=== PATIENT | male | born 1945 | race Hispanic/Latino ===

== ENCOUNTER 2018-01-13 11:46 | Emergency (ER) | payer MEDICARE ==
[2018-01-13 12:16] VITALS: BP 137/72
--- NOTE | 2018-01-13 12:58 | Emergency Department Report ---
- General Chief Complaint: Upper Respiratory Infection Stated Complaint: FLU LIKE SYMPTOMS Time Seen by Provider: 01/13/18 12:43 Source: patient, family Mode of arrival: Ambulatory Limitations: No Limitations - History of Present Illness Initial Comments: 72-year-old male with a past medical history of diabetes, hypertension, pacemaker, and depression presents with complaints of cough and cold symptoms 2 weeks. Cough productive of clear sputum. Patient denies fever, chills, night sweats, hemoptysis, shortness of breath, or wheezing. No pain reported - Related Data Previous Rx's Medication Instructions Recorded Last Taken Type Azithromycin [Zithromax Z-BETH] 1 dose PO DAILY 5 Days tab 01/13/18 Unknown Rx Benzonatate [Tessalon Perles] 100 mg PO Q8HR PRN #20 capsule 01/13/18 Unknown Rx Allergies Allergy/AdvReac Type Severity Reaction Status Date / Time No Known Allergies Allergy Unverified 11/19/13 10:42 ED Review of Systems ROS: Stated complaint: FLU LIKE SYMPTOMS Other details as noted in HPI Comment: All other systems reviewed and negative ED Past Medical Hx - Past Medical History Previous Medical History?: Yes Hx Hypertension: Yes (1981) Hx Diabetes: Yes Hx Kidney Stones: Yes Hx Psychiatric Treatment: Yes (depression) Additional medical history: Pacemaker - Surgical History Hx Pacemaker: Yes (03/09/2005) Additional Surgical History: Prostate trim and biopsy - Social History Smoking Status: Never Smoker Substance Use Type: Alcohol - Medications Home Medications: Home Medications Medication Instructions Recorded Confirmed Last Taken Type Azithromycin [Zithromax Z-BETH] 1 dose PO DAILY 5 Days tab 01/13/18 Unknown Rx Benzonatate [Tessalon Perles] 100 mg PO Q8HR PRN #20 capsule 01/13/18 Unknown Rx ED Physical Exam - General Limitations: No Limitations - Other Other exam information: General: No limitations, patient is alert in no acute distress Head exam: Atraumatic, normocephalic Eyes exam: Normal appearance ENT: Moist mucous membrane Neck exam: Normal inspection, full range of motion, no meningismus nontender Respiratory exam: Clear to auscultation bilateral, no wheezes, rales, crackles Cardiovascular: Normal rate and rhythm, normal heart sounds Abdomen: Soft, nondistended, and nontender, with normal bowel sounds, no rebound, or guarding Extremity: Full range of motion normal inspection no deformity, no edema Back: Normal Inspection, full range of motion, no tenderness Neurologic: Alert, oriented x3, cranial nerves intact, no motor or sensory deficit Psychiatric: normal affect, normal mood Skin: Warm, dry, intact ED Course Vital Signs 01/13/18 12:05 Temperature 97.8 F Pulse Rate 50 L Respiratory 16 Rate Blood Pressure 137/72 Blood Pressure 137/72 [Right] O2 Sat by Pulse 95 Oximetry ED Medical Decision Making - Radiology Data Radiology results: image reviewed (cxr pa/lat: pacemaker, naf) - Medical Decision Making No acute findings on x-ray patient likely has a viral syndrome but will be covered for bronchitis/atypical pneumonia with zpack given prolonged symptoms 2 weeks. - Differential Diagnosis bronchitis, pneumonia, viral syndrome Critical Care Time: No Critical care attestation.: If time is entered above; I have spent that time in minutes in the direct care of this critically ill patient, excluding procedure time. ED Disposition Clinical Impression: Acute bronchitis Disposition: - TO HOME OR SELFCARE Is pt being admited?: No Does the pt Need Aspirin: No Condition: Stable Instructions: Acute Bronchitis (ED) Additional Instructions: Take the medications as prescribed. Return if symptoms worsen as indicated by the discharge instructions otherwise follow with your doctor for further treatment. Prescriptions: Azithromycin [Zithromax Z-BETH] 1 dose PO DAILY 5 Days tab Benzonatate [Tessalon Perles] 100 mg PO Q8HR PRN #20 capsule PRN Reason: Cough Referrals: PRIMARY CARE, [Primary Care Provider] - 3-5 Days Time of Disposition: 13:08
--- NOTE | 2018-01-13 13:28 | XRay Report ---
XRAY CHEST TWO VIEWS: 01/13/18 11:46:00 CLINICAL: Cough. COMPARISON: None FINDINGS: The heart is normal size with pacer leads in the heart. Normal pulmonary vessels. The lungs are normally expanded and clear. Aortic tortuosity.The bones and soft tissues are unremarkable. IMPRESSION: No acute cardiopulmonary process.Hypertensive change in the aorta.
== END 2018-01-13 13:23 | disposition home or self-care (01) ==
LOC: ED 11:46
DX: J20.9 Acute bronchitis, unspecified (principal); I10 Essential (primary) hypertension; E11.9 Type 2 diabetes mellitus without complications; F32.9 Major depressive disorder, single episode, unspecified; Z95.0 Presence of cardiac pacemaker; Z87.442 Personal history of urinary calculi
CPT/HCPCS: 71046

== ENCOUNTER 2018-01-29 10:36 | Emergency (ER) | payer MEDICARE ==
[2018-01-29 13:43] LABS: Basophils # (Auto) 0.1 K/mm3 (0.0-0.1); Basophils % (Auto) 1.2 % (0.0-1.8); Eosinophils # (Auto) 0.1 K/mm3 (0.0-0.4); Eosinophils % (Auto) 1.5 % (0.0-4.3); Hematocrit 45.3 % (35.5-45.6); Hemoglobin 15.4 gm/dl (11.8-15.2); Lymphocytes # (Auto) 1.8 K/mm3 (1.2-5.4); Lymphocytes % (Auto) 21.4 % (13.4-35.0); Mean Corpuscular HGB Conc 34 % (32-34); Mean Corpuscular Hemoglobin 30 pg (28-32); Mean Corpuscular Volume 89 fl (84-94); Monocytes # (Auto) 0.8 K/mm3 (0.0-0.8); Monocytes % (Auto) 9.9 % (0.0-7.3); Platelet Count 259 K/mm3 (140-440); Red Cell Distribution Width 13.2 % (13.2-15.2)
[2018-01-29 13:49] LABS: Alanine Aminotransferase 106 units/L (7-56); Albumin 4.2 g/dL (3.9-5); BUN/Creatinine Ratio 23; Blood Urea Nitrogen 14 mg/dL (9-20); Calcium 9.5 mg/dL (8.4-10.2); Hemolysis Index 26; Lipase 34 units/L (13-60)
[2018-01-29 13:52] LABS: INR 0.95 (0.87-1.13)
[2018-01-29 13:53] LABS: Partial Thromboplastin Time 27.9 Sec. (24.2-36.6)
--- NOTE | 2018-01-29 14:58 | Emergency Department Report ---
Chief Complaint: Earache Stated Complaint: EARS RINGING/CONSTIPATED/NO SLEEP Time Seen by Provider: 01/29/18 14:52 - HPI History of Present Illness: 73-year-old male presents to the emergency department with complaint of severe ringing in the ears and has been going on since last night. Another issue is the patient's low heart rate. He presented with a heart rate in the mid 40s. He has a history of sick sinus syndrome for which he has a pacemaker. He sees Dr. Christianson for cardiology but Dr. Stover for his pacemaker. - ROS Review of Systems: Positive for tinnitus, bradycardia Negative for chest pain, shortness of breath, vision change - Exam Vital Signs: Vital Signs 01/29/18 01/29/18 10:53 14:41 Temperature 97.7 F Pulse Rate 46 L 44 L Respiratory 19 18 Rate Blood Pressure 136/76 136/72 O2 Sat by Pulse 94 97 Oximetry Physical Exam: Patient is awake and alert does not appear in any acute distress. MSE screening note: Focused history and physical exam performed. Due to findings the following was ordered: So far his labs show some transaminitis. He will need an EKG secondary to the bradycardia. He may need further workup regarding his tinnitus. He'll be moved to the main emergency department side. ED Medical Decision Making - Lab Data Result diagrams: 01/29/18 13:00 01/29/18 13:00 ED Disposition for MSE Condition: Stable Referrals: HORACIO AYERS MD [Primary Care Provider] - 3-5 Days
[2018-01-29] MEDS ORDERED: DECADRON IM ONE (17:47)
--- NOTE | 2018-01-29 17:52 | Emergency Department Report ---
ED General Adult HPI - General Chief complaint: Medical Clearance Stated complaint: EARS RINGING/CONSTIPATED/NO SLEEP Time Seen by Provider: 01/29/18 14:52 Source: patient, family Mode of arrival: Ambulatory Limitations: No Limitations - History of Present Illness Initial comments: Patient is 73 years old male with history of sinus syndrome and pacemaker recently replaced 2 years ago. Patient presented to the ER complaining of getting into both ear for the last 2 weeks. Patient denied any headache, dizziness, numbness weakness or tingling sensation. Patient denied any chest pain or shortness of breath. Patient stated that he had upper respiratory infection 2 weeks ago. He denied any fever cough or congestion today. Severity scale (0 -10): 0 - Related Data Previous Rx's Medication Instructions Recorded Last Taken Type Azithromycin [Zithromax Z-BETH] 1 dose PO DAILY 5 Days tab 01/13/18 Unknown Rx Benzonatate [Tessalon Perles] 100 mg PO Q8HR PRN #20 capsule 01/13/18 Unknown Rx Allergies Allergy/AdvReac Type Severity Reaction Status Date / Time No Known Allergies Allergy Unverified 11/19/13 10:42 ED Review of Systems ROS: Stated complaint: EARS RINGING/CONSTIPATED/NO SLEEP Other details as noted in HPI Comment: All other systems reviewed and negative Constitutional: denies: chills, fever Respiratory: denies: cough, shortness of breath, SOB with exertion, SOB at rest , wheezing Cardiovascular: denies: chest pain, palpitations, dyspnea on exertion Gastrointestinal: denies: abdominal pain, nausea, vomiting, diarrhea, constipation, hematemesis, melena, hematochezia Musculoskeletal: denies: back pain, joint swelling Neurological: denies: headache, weakness, numbness, paresthesias, confusion, abnormal gait, vertigo ED Past Medical Hx - Past Medical History Hx Hypertension: Yes (1981) Hx Diabetes: Yes Hx Kidney Stones: Yes Hx Psychiatric Treatment: Yes (depression) Additional medical history: Pacemaker - Surgical History Past Surgical History?: Yes Hx Pacemaker: Yes (03/09/2005) Additional Surgical History: Prostate trim and biopsy - Social History Smoking Status: Never Smoker Substance Use Type: Alcohol - Medications Home Medications: Home Medications Medication Instructions Recorded Confirmed Last Taken Type Azithromycin [Zithromax Z-BETH] 1 dose PO DAILY 5 Days tab 01/13/18 Unknown Rx Benzonatate [Tessalon Perles] 100 mg PO Q8HR PRN #20 capsule 01/13/18 Unknown Rx ED Physical Exam - General Limitations: No Limitations General appearance: alert, in no apparent distress - Head Head exam: Present: atraumatic, normocephalic, normal inspection - Eye Eye exam: Present: normal appearance, PERRL Pupils: Present: normal accommodation - ENT ENT exam: Present: other (bilateral middle ear effusion consistent with serous otitis media.) - Neck Neck exam: Present: normal inspection, full ROM. Absent: tenderness, meningismus, lymphadenopathy, thyromegaly - Respiratory Respiratory exam: Present: normal lung sounds bilaterally. Absent: respiratory distress, wheezes, rales, rhonchi, stridor, chest wall tenderness, accessory muscle use, decreased breath sounds, prolonged expiratory - Cardiovascular Cardiovascular Exam: Present: bradycardia. Absent: tachycardia, irregular rhythm, systolic murmur, diastolic murmur - GI/Abdominal GI/Abdominal exam: Present: soft, normal bowel sounds. Absent: distended, tenderness, guarding, rebound, rigid, organomegaly, mass, bruit, pulsatile mass , hernia - Extremities Exam Extremities exam: Present: normal inspection, full ROM, normal capillary refill - Back Exam Back exam: Present: normal inspection, full ROM. Absent: tenderness, CVA tenderness (R), CVA tenderness (L), muscle spasm, paraspinal tenderness, vertebral tenderness, rash noted - Neurological Exam Neurological exam: Present: alert, oriented X3, CN II-XII intact, normal gait, reflexes normal. Absent: abnormal gait, motor sensory deficit - Skin Skin exam: Present: warm, intact, normal color. Absent: cyanosis, diaphoretic, erythema, urticaria ED Course Vital Signs 01/29/18 01/29/18 01/29/18 10:53 14:41 17:00 Temperature 97.7 F Pulse Rate 46 L 44 L Respiratory 19 18 16 Rate Blood Pressure 136/76 136/72 Blood Pressure [Right] O2 Sat by Pulse 94 97 96 Oximetry 01/29/18 17:20 Temperature Pulse Rate 42 L Respiratory 16 Rate Blood Pressure Blood Pressure 138/73 [Right] O2 Sat by Pulse 96 Oximetry ED Medical Decision Making - Lab Data Result diagrams: 01/29/18 13:00 01/29/18 13:00 - Radiology Data Radiology results: report reviewed Referring Physician: ISMAEL JJ Patient Name: MARIZOL VIEIRA Date of : 1945 Sex: Male Report Date: 2018-01-29 Report Status: Finalized Findings [facility] [address] [place] [address] Cat Scan Report Signed Patient: MARIZOL VIEIRA MR#: [id number] : 1945 Acct:[id number] Age/Sex: 73 / M ADM Date: 01/29/18 Loc: ED Attending Dr: Ordering Physician: ISMAEL JJ Date of Service: 01/29/18 Procedure(s): CT head/brain wo con Accession Number(s): [id number] cc: ISMAEL JJ FINAL REPORT EXAM: CT HEAD/BRAIN WO CON HISTORY: Tinnitus TECHNIQUE: Standard unenhanced CT of the head at 5.0 millimeter axial increments. PRIORS: None. FINDINGS: The ventricular system is normal in size and configuration. There is mild cerebral atrophy. There is no evidence for mass lesion, mass effect, midline shift, acute intracranial hemorrhage, or acute ischemia/ infarction. No evidence for acute skull fracture is seen. No abnormality in the overlying scalp soft tissues is seen. Visualized paranasal sinuses are clear. IMPRESSION: Mild atrophy. No acute intracranial process noted. Transcribed By: [facility] Dictated By: ANN MARIE CAMACHO MD Electronically Authenticated By: ANN MARIE CAMACHO MD Signed Date/Time: 01/29/181900 DD/ 00 TD/TT: 01/29/181900 Critical care attestation.: If time is entered above; I have spent that time in minutes in the direct care of this critically ill patient, excluding procedure time. ED Disposition Clinical Impression: Tinnitus, bilateral, Otitis media with effusion Disposition: DC-01 TO HOME OR SELFCARE Is pt being admited?: No Condition: Stable Instructions: Otitis Media (ED) Referrals: HORACIO AYERS MD [Primary Care Provider] - 3-5 Days
--- NOTE | 2018-01-29 19:05 | Cat Scan Report ---
FINAL REPORT EXAM: CT HEAD/BRAIN WO CON HISTORY: Tinnitus TECHNIQUE: Standard unenhanced CT of the head at 5.0 millimeter axial increments. PRIORS: None. FINDINGS: The ventricular system is normal in size and configuration. There is mild cerebral atrophy. There is no evidence for mass lesion, mass effect, midline shift, acute intracranial hemorrhage, or acute ischemia/ infarction. No evidence for acute skull fracture is seen. No abnormality in the overlying scalp soft tissues is seen. Visualized paranasal sinuses are clear. IMPRESSION: Mild atrophy. No acute intracranial process noted.
[2018-01-29 19:47] VITALS: BP 162/85
== END 2018-01-29 19:46 | disposition home or self-care (01) ==
LOC: ED 10:36
DX: H93.13 Tinnitus, bilateral (principal); I10 Essential (primary) hypertension; E11.9 Type 2 diabetes mellitus without complications; F32.9 Major depressive disorder, single episode, unspecified; Z95.0 Presence of cardiac pacemaker; Z87.442 Personal history of urinary calculi
CPT/HCPCS: 36415; 70450; 80053; 83690; 84443; 85025; 85610; 85730; 86850; 86900; 86901; 93005; 93010; 96372; 99284; J1100

== ENCOUNTER 2018-03-18 16:19 | Inpatient (IN) | payer MEDICARE ==
[2018-03-18] MEDS ORDERED: LASIX IV ONE (18:01)
--- NOTE | 2018-03-18 18:45 | XRay Report ---
FINAL REPORT PROCEDURE: XR CHEST 1V AP TECHNIQUE: Chest radiograph anteroposterior view. CPT 20005 HISTORY: chest pain COMPARISON: No prior studies are available for comparison. FINDINGS: Heart: Normal. Mediastinum/Vessels: Normal. Lungs/Pleural space: Normal. Bony thorax: No acute osseous abnormality. Life support devices: A bipolar cardiac device is noted on the left side with its leads in place.. IMPRESSION: No acute cardiopulmonary abnormality.
--- NOTE | 2018-03-18 18:48 | Emergency Department Report ---
HPI - General Chief Complaint: Extremity Problem,Nontraumatic Time Seen by Provider: 03/18/18 17:32 - HPI HPI: The patient is a 73-year-old male with a significant history of heart failure and pacemaker placement, who presents for evaluation of leg swelling and generalized weakness. The patient reports 1 week of constant and severe bilateral lower leg swelling, improved with elevation of the legs, exacerbated with activity, and associated with fatigue/generalized weakness with activity. The patient denies trauma to the legs, fever, chest pain, dyspnea, syncope, hemoptysis, unilateral leg swelling, recent immobilization. ED Past Medical Hx - Past Medical History Hx Hypertension: Yes (1981) Hx Diabetes: Yes Hx Kidney Stones: Yes Hx Psychiatric Treatment: Yes (depression) Additional medical history: Pacemaker - Surgical History Hx Pacemaker: Yes (03/09/2005) Additional Surgical History: Prostate trim and biopsy - Social History Smoking Status: Never Smoker Substance Use Type: None - Medications Home Medications: Home Medications Medication Instructions Recorded Confirmed Last Taken Type Azithromycin [Zithromax Z-BETH] 1 dose PO DAILY 5 Days tab 01/13/18 Unknown Rx Benzonatate [Tessalon Perles] 100 mg PO Q8HR PRN #20 capsule 01/13/18 Unknown Rx Prednisone [predniSONE 10 mg 10 mg PO .TAPER #1 tab.ds.pk 01/29/18 Unknown Rx (6-Day Pack, 21 Tabs)] ED Review of Systems ROS: Stated complaint: SWOLLEN LEGS/FEET Other details as noted in HPI Constitutional: reports weaknes denies: fever ENT: denies: throat or neck pain Respiratory: denies: cough, shortness of breath Cardiovascular: denies: chest pain Endocrine: denies unexplained weight loss or gain Gastrointestinal: denies: abdominal pain, nausea Genitourinary: denies: dysuria Musculoskeletal: reports: leg swelling Skin: denies: rash Neurological: denies: headache Hematological/Lymphatic: denies: easy bleeding or easy bruising Psych: denies sadness or hopelessness Physical Exam - Physical Exam Vital Signs: Vital Signs 03/18/18 16:23 Temperature 97.7 F Pulse Rate 69 Respiratory 18 Rate Blood Pressure 127/77 O2 Sat by Pulse 99 Oximetry Physical Exam: General: well-nourished, well-developed, no acute distress Head: Normocephalic, atraumatic Eyes: normal sclera ENT: Mucous membranes are pink and moist Neck: trachea midline, neck supple, No neck stiffness, no cervical adenopathy Respiratory: Breath sounds equal bilaterally, no wheezing, rales, or rhonchi Cardio: S1 and S2 present, no murmurs, rubs, gallops, capillary refill is brisk Abdomen: Normoactive bowel sounds, soft abdomen, no rigidity, no guarding or rebound tenderness Chest WALL/Back: No tenderness to palpation of the chest wall, no CVA tenderness with percussion Musc: 2+ pitting edema of the bilateral lower legs present Skin: No rash Neuro: no facial drooping, normal speech Psych: Normal affect ED Course Vital Signs 03/18/18 16:23 Temperature 97.7 F Pulse Rate 69 Respiratory 18 Rate Blood Pressure 127/77 O2 Sat by Pulse 99 Oximetry ED Medical Decision Making - Medical Decision Making The patient was seen and examined by myself. The patient is placed on a vehicle monitor technician and continuous pulse ox. On initial evaluation, the patient was found to be in no distress. Evaluation orders were placed. X-ray of the chest reveals cardiomegaly and mild pulmonary vascular congestion. EKG is unremarkable. Lab results revealed elevated BNP, and otherwise unrevealing. The patient was given IV Lasix for treatment of leg swelling and mild exacerbation of heart failure. Dr. Walsh, the physician on-call for the Hospitalist service was contacted. He agreed to admit the patient for further treatment and close monitoring. The ED admit order was placed. The patient was admitted in guarded condition. Critical care attestation.: If time is entered above; I have spent that time in minutes in the direct care of this critically ill patient, excluding procedure time. ED Disposition Clinical Impression: Acute on chronic systolic CHF (congestive heart failure), Localized swelling of both lower legs Disposition: OP ADMIT IP TO THIS HOSP Is pt being admited?: Yes Does the pt Need Aspirin: Yes Condition: Fair Referrals: HORACIO AYERS MD [Primary Care Provider] - 3-5 Days Time of Disposition: 18:49
[2018-03-18] MEDS ORDERED: BABY ASPIRIN PO ONE (18:50)
[2018-03-18 18:55] LABS: Hematocrit 41.7 % (35.5-45.6); Hemoglobin 13.8 gm/dl (11.8-15.2); Mean Corpuscular HGB Conc 33 % (32-34); Mean Corpuscular Hemoglobin 30 pg (28-32); Mean Corpuscular Volume 89 fl (84-94); Platelet Count 223 K/mm3 (140-440); Red Blood Count 4.68 M/mm3 (3.65-5.03); Red Cell Distribution Width 14.6 % (13.2-15.2)
[2018-03-18 19:07] LABS: Albumin 3.7 g/dL (3.9-5); BUN/Creatinine Ratio 18; Blood Urea Nitrogen 9 mg/dL (9-20); Calcium 8.7 mg/dL (8.4-10.2); Hemolysis Index 129
[2018-03-18 19:16] LABS: Alanine Aminotransferase 46 units/L (7-56)
[2018-03-18 21:41] LABS: Anisocytosis 1+; Band Neutrophils # (Manual) 0.1 K/mm3; Basophils % (Manual) 0 % (0.0-1.8); Eosinophils % (Manual) 0 % (0.0-4.3); Platelet Estimate Consistent w Auto; Total Cells Counted 100
--- NOTE | 2018-03-18 21:54 | History and Physical Report ---
History of Present Illness Date of examination: 03/18/18 Date of admission: 03/18/18 Chief complaint: Swelling of both legs and redness 1 week History of present illness: CLARENCE: 73-year-old male with a significant history of heart failure and pacemaker placement, Complaints of leg swelling and generalized weakness. Also noticed redness on RLE .No fever or chills. The patient reports 1 week of constant and severe bilateral lower leg swelling, improved with elevation of the legs, exacerbated with activity, and associated with fatigue/generalized weakness with activity. No recent travel Past Medical History Hypertension Diabetes Kidney Stones Psychiatric Treatment: Yes (depression) PPM Surgical History Pacemaker: Yes (03/09/2005) Additional Surgical History: Prostate trim and biopsy Social History Smoking Status: Never Smoker Substance Use Type: None - Medications Home Medications: Home Medications Medication Instructions Recorded Confirmed Last Taken Type Azithromycin [Zithromax Z-BETH] 1 dose PO DAILY 5 Days tab 01/13/18 Unknown Rx Benzonatate [Tessalon Perles] 100 mg PO Q8HR PRN #20 capsule 01/13/18 Unknown Rx Prednisone [predniSONE 10 mg 10 mg PO .TAPER #1 tab.ds.pk 01/29/18 Unknown Rx (6-Day Pack, 21 Tabs)] Review of Systems ROS: Stated complaint: SWOLLEN LEGS/FEET Other details as noted in HPI Constitutional: reports weaknes denies: fever ENT: denies: throat or neck pain Respiratory: denies: cough, shortness of breath Cardiovascular: denies: chest pain Endocrine: denies unexplained weight loss or gain Gastrointestinal: denies: abdominal pain, nausea Genitourinary: denies: dysuria Musculoskeletal: reports: leg swelling Skin: denies: rash Neurological: denies: headache Hematological/Lymphatic: denies: easy bleeding or easy bruising Psych: denies sadness or hopelessness Medications and Allergies Allergies Allergy/AdvReac Type Severity Reaction Status Date / Time No Known Allergies Allergy Unverified 11/19/13 10:42 Home Medications Medication Instructions Recorded Confirmed Last Taken Type Amlodipine Besylate [Norvasc] 5 mg PO DAILY 03/18/18 03/18/18 Unknown History Atenolol [Tenormin] 50 mg PO BID 03/18/18 03/18/18 Unknown History AtorvaSTATin [Lipitor] 40 mg PO DAILY 03/18/18 03/18/18 Unknown History Escitalopram [Lexapro] 10 mg PO DAILY 03/18/18 03/18/18 Unknown History Furosemide [Lasix] 20 mg PO DAILY 03/18/18 03/18/18 03/18/18 History Metformin HCl [Glucophage] 500 mg PO BID 03/18/18 03/18/18 Unknown History Tamsulosin HCl [Flomax] 0.4 mg PO BID 03/18/18 03/18/18 Unknown History Valsartan [Diovan] 320 mg PO DAILY 03/18/18 03/18/18 Unknown History Exam - Constitutional Vitals: Temp Pulse Resp BP Pulse Ox 97.7 F 79 17 128/71 97 03/18/18 16:23 03/18/18 21:31 03/18/18 21:31 03/18/18 21:31 03/18/18 21:31 General appearance: Present: no acute distress, well-nourished - EENT Eyes: Present: PERRL ENT: hearing intact, clear oral mucosa - Neck Neck: Present: supple, normal ROM - Respiratory Respiratory effort: normal Respiratory: bilateral: CTA - Cardiovascular Heart rate: 66 Rhythm: regularly irregular Heart Sounds: Present: S1 & S2. Absent: rub, click - Extremities Extremities: no ischemia, pulses intact, pulses symmetrical, No edema, Full ROM Extremity abnormal: edema, erythema (RLE), other (4 plus edema both legs Eruthema present on RLE) Peripheral Pulses: within normal limits - Abdominal General gastrointestinal: Present: soft, non-tender, non-distended, normal bowel sounds Male genitourinary: Present: normal - Rectal Rectal Exam: deferred - Integumentary Integumentary: Present: clear, warm, dry - Musculoskeletal Musculoskeletal: gait normal, strength equal bilaterally - Psychiatric Psychiatric: appropriate mood/affect, intact judgment & insight - Neurologic Neurologic: CNII-XII intact, moves all extremities - Allied Health Allied health notes reviewed: nursing, case management Results - Labs CBC & Chem 7: 03/19/18 05:00 03/19/18 05:00 Labs: Laboratory Last Values WBC 7.8 K/mm3 (4.5-11.0) 03/18/18 18:36 RBC 4.68 M/mm3 (3.65-5.03) 03/18/18 18:36 Hgb 13.8 gm/dl (11.8-15.2) 03/18/18 18:36 Hct 41.7 % (35.5-45.6) 03/18/18 18:36 MCV 89 fl (84-94) 18 18:36 MCH 30 pg (28-32) 18 18:36 MCHC 33 % (32-34) 03/18/18 18:36 RDW 14.6 % (13.2-15.2) 03/18/18 18:36 Plt Count 223 K/mm3 (140-440) 18 18:36 Baso % (Auto) Dairy Equipment Specialist 03/18/18 18:36 Add Manual Diff Complete 03/18/18 18:36 Total Counted 100 03/18/18 18:36 Seg Neuts % (Manual) 66.0 % (40.0-70.0) 03/18/18 18:36 Band Neutrophils % 1.0 % 03/18/18 18:36 Lymphocytes % (Manual) 23.0 % (13.4-35.0) 03/18/18 18:36 Reactive Lymphs % (Man) 0 % 03/18/18 18:36 Monocytes % (Manual) 10.0 % (0.0-7.3) H 03/18/18 18:36 Eosinophils % (Manual) 0 % (0.0-4.3) 03/18/18 18:36 Basophils % (Manual) 0 % (0.0-1.8) 03/18/18 18:36 Metamyelocytes % 0 % 03/18/18 18:36 Myelocytes % 0 % 03/18/18 18:36 Promyelocytes % 0 % 03/18/18 18:36 Blast Cells % 0 % 03/18/18 18:36 Nucleated RBC % Not Reportable 03/18/18 18:36 Seg Neutrophils # Man 5.1 K/mm3 (1.8-7.7) 03/18/18 18:36 Band Neutrophils # 0.1 K/mm3 03/18/18 18:36 Lymphocytes # (Manual) 1.8 K/mm3 (1.2-5.4) 18 18:36 Abs React Lymphs (Man) 0.0 K/mm3 03/18/18 18:36 Monocytes # (Manual) 0.8 K/mm3 (0.0-0.8) 03/18/18 18:36 Eosinophils # (Manual) 0.0 K/mm3 (0.0-0.4) 03/18/18 18:36 Basophils # (Manual) 0.0 K/mm3 (0.0-0.1) 03/18/18 18:36 Metamyelocytes # 0.0 K/mm3 03/18/18 18:36 Myelocytes # 0.0 K/mm3 03/18/18 18:36 Promyelocytes # 0.0 K/mm3 03/18/18 18:36 Blast Cells # 0.0 K/mm3 03/18/18 18:36 WBC Morphology Not Reportable 03/18/18 18:36 Hypersegmented Neuts Not Reportable 03/18/18 18:36 Hyposegmented Neuts Not Reportable 03/18/18 18:36 Hypogranular Neuts Not Reportable 03/18/18 18:36 Smudge Cells Not Reportable 03/18/18 18:36 Toxic Granulation Not Reportable 03/18/18 18:36 Toxic Vacuolation Not Reportable 03/18/18 18:36 Dohle Bodies Not Reportable 03/18/18 18:36 Pelger-Huet Anomaly Not Reportable 03/18/18 18:36 Seth Rods Not Reportable 03/18/18 18:36 Platelet Estimate Consistent w auto 03/18/18 18:36 Clumped Platelets Not Reportable 03/18/18 18:36 Plt Clumps, EDTA Not Reportable 03/18/18 18:36 Large Platelets Not Reportable 03/18/18 18:36 Giant Platelets Not Reportable 03/18/18 18:36 Platelet Satelliting Not Reportable 03/18/18 18:36 Plt Morphology Comment Not Reportable 03/18/18 18:36 RBC Morphology Not Reportable 03/18/18 18:36 Dimorphic RBCs Not Reportable 03/18/18 18:36 Polychromasia Not Reportable 03/18/18 18:36 Hypochromasia Not Reportable 03/18/18 18:36 Poikilocytosis Not Reportable 03/18/18 18:36 Anisocytosis 1+ 03/18/18 18:36 Microcytosis Not Reportable 03/18/18 18:36 Macrocytosis Not Reportable 03/18/18 18:36 Spherocytes Not Reportable 03/18/18 18:36 Pappenheimer Bodies Not Reportable 03/18/18 18:36 Sickle Cells Not Reportable 03/18/18 18:36 Target Cells Not Reportable 03/18/18 18:36 Tear Drop Cells Not Reportable 03/18/18 18:36 Ovalocytes Not Reportable 03/18/18 18:36 Helmet Cells Not Reportable 03/18/18 18:36 [place] Bodies Not Reportable 03/18/18 18:36 [employer] Rings Not Reportable 03/18/18 18:36 [place] Cells Not Reportable 03/18/18 18:36 Bite Cells Not Reportable 03/18/18 18:36 Crenated Cell Not Reportable 03/18/18 18:36 Elliptocytes Not Reportable 03/18/18 18:36 Acanthocytes (Spur) Not Reportable 03/18/18 18:36 Rouleaux Not Reportable 03/18/18 18:36 Hemoglobin C Crystals Not Reportable 03/18/18 18:36 Schistocytes Not Reportable 03/18/18 18:36 Malaria parasites Not Reportable 03/18/18 18:36 Abram Bodies Not Reportable 03/18/18 18:36 Hem Pathologist Commnt No 03/18/18 18:36 D-Dimer 206.74 ng/mlDDU (0-234) 03/18/18 18:36 Sodium 129 mmol/L (137-145) L 03/18/18 18:36 Potassium 4.4 mmol/L (3.6-5.0) 03/18/18 18:36 Chloride 91.4 mmol/L (98-107) L 03/18/18 18:36 Carbon Dioxide 25 mmol/L (22-30) 03/18/18 18:36 Anion Gap 17 mmol/L 03/18/18 18:36 BUN 9 mg/dL (9-20) 03/18/18 18:36 Creatinine 0.5 mg/dL (0.8-1.5) L 03/18/18 18:36 Estimated GFR > 60 ml/min 03/18/18 18:36 BUN/Creatinine Ratio 18 % 03/18/18 18:36 Glucose 100 mg/dL (75-100) 03/18/18 18:36 Lactic Acid 1.20 mmol/L (0.7-2.0) 03/18/18 18:36 Calcium 8.7 mg/dL (8.4-10.2) 03/18/18 18:36 Total Bilirubin 0.70 mg/dL (0.1-1.2) 03/18/18 18:36 AST 35 units/L (5-40) 03/18/18 18:36 ALT 46 units/L (7-56) 03/18/18 18:36 Alkaline Phosphatase 303 units/L (35-129) H 03/18/18 18:36 Total Creatine Kinase 103 units/L (55-170) 03/18/18 18:36 NT-Pro-B Natriuret Pep 1458 pg/mL (0-900) H 03/18/18 18:36 Total Protein 6.2 g/dL (6.3-8.2) L 03/18/18 18:36 Albumin 3.7 g/dL (3.9-5) L 03/18/18 18:36 Albumin/Globulin Ratio 1.5 % 03/18/18 18:36 Short CBC 03/18/18 03/19/18 Range/Units 18:36 05:00 WBC 7.8 6.2 (4.5-11.0) K/mm3 Hgb 13.8 13.8 (11.8-15.2) gm/dl Hct 41.7 41.8 (35.5-45.6) % Plt Count 223 222 (140-440) K/mm3 BMP 03/18/18 03/19/18 18:36 05:00 Sodium 129 L 137 D Potassium 4.4 3.8 Chloride 91.4 L 95.4 L Carbon Dioxide 25 31 H BUN 9 8 L Creatinine 0.5 L 0.6 L Glucose 100 106 H Calcium 8.7 8.6 Cardiac Enzymes 03/18/18 Range/Units 18:36 Total Creatine Kinase 103 (55-170) units/L Liver Function 03/18/18 03/19/18 Range/Units 18:36 05:00 Total Bilirubin 0.70 0.70 (0.1-1.2) mg/dL AST 35 27 (5-40) units/L ALT 46 45 (7-56) units/L Alkaline Phosphatase 303 H 276 H (35-129) units/L Albumin 3.7 L 3.6 L (3.9-5) g/dL - Imaging and Cardiology EKG: report reviewed (NSR Vent bigeminy 66/min) Assessment and Plan Advance Directives: Yes (Full code) VTE prophylaxis?: Chemical Plan of care discussed with patient/family: Yes - Patient Problems (1) Acute on chronic systolic CHF (congestive heart failure) Current Visit: Yes Status: Acute Plan to address problem: Check ECHO IV Lasix Cardiolgy consult with Dr Christianson (2) Cellulitis of right lower extremity Current Visit: Yes Status: Acute Plan to address problem: IV Unasyn and Vancomycin (3) Localized swelling of both lower legs Current Visit: Yes Status: Chronic Plan to address problem: R/o Pulmonary HTN IV Diuretics Elevation of feet Amlodipine stopped (4) HTN (hypertension) Current Visit: Yes Status: Chronic Qualifiers: Hypertension type: essential hypertension Qualified Code(s): I10 - Essential (primary) hypertension Plan to address problem: Cont Vlasartan and Atenolol.Hold Amlodipine (5) T2DM (type 2 diabetes mellitus) Current Visit: Yes Status: Chronic Qualifiers: Diabetes mellitus market garden worker insulin use: without market garden worker use Plan to address problem: On Metformin-will Hold Coverage for now Check A1c (6) BPH (benign prostatic hyperplasia) Current Visit: Yes Status: Chronic Qualifiers: Lower urinary tract symptom presence: symptoms present Plan to address problem: Cont Flomax (7) HLD (hyperlipidemia) Current Visit: Yes Status: Chronic Qualifiers: Hyperlipidemia type: mixed hyperlipidemia Qualified Code(s): E78.2 - Mixed hyperlipidemia Plan to address problem: Cont Statins (8) Depression Current Visit: Yes Status: Chronic Qualifiers: Depression Type: unspecified Qualified Code(s): F32.9 - Major depressive disorder, single episode, unspecified Plan to address problem: Cont Lexapro (9) DVT prophylaxis Current Visit: Yes Status: Acute Plan to address problem: On Lovenox GI prophylaxis initiated
[2018-03-18] MEDS ORDERED: ZOFRAN IV PRN (21:55)
[2018-03-18] MEDS ORDERED: DILAUDID IV PRN (21:55)
[2018-03-18] MEDS ORDERED: TYLENOL PO PRN (21:55)
[2018-03-18] MEDS ORDERED: SODIUM CHLORIDE FLUSH SYRINGE 10 ML IV PRN (21:55)
[2018-03-18] MEDS ORDERED: PERCOCET 5/325 PO PRN (21:55)
[2018-03-18] MEDS ORDERED: HumaLOG SUB-Q ONE (21:59)
[2018-03-18] MEDS ORDERED: NON-FORMULARY (Valsartan [Diovan] 320 MG) PO SCH (22:00)
[2018-03-18] MEDS ORDERED: VANCOMYCIN PHARMACY TO DOSE IV SCH (22:00)
[2018-03-18] MEDS ORDERED: NON-FORMULARY (Atenolol 50 MG) PO SCH (22:00)
[2018-03-18] MEDS ORDERED: VANCOMYCIN 2,000 MG in NACL 0.9% 500 ML 500 ML IV ONE (22:15)
[2018-03-18] MEDS ORDERED: BABY ASPIRIN ONE (22:40)
[2018-03-18] MEDS: DIOVAN PO SCH (23:06)
[2018-03-18] MEDS: FLOMAX PO SCH (23:07)
[2018-03-18] MEDS: TENORMIN PO SCH (23:07)
[2018-03-18] MEDS: SODIUM CHLORIDE FLUSH SYRINGE 10 ML IV SCH (23:07)
[2018-03-18] MEDS: K-DUR PO SCH (23:07)
[2018-03-18] MEDS: PEPCID PO SCH (23:07)
[2018-03-19] MEDS: UNASYN/NS 3 GM/100 ML 3 GM/100 ML BAG IV SCH ×4 (01:35→22:05)
[2018-03-19 05:27] LABS: Basophils # (Auto) 0.1 K/mm3 (0.0-0.1); Basophils % (Auto) 1.8 % (0.0-1.8); Eosinophils # (Auto) 0.3 K/mm3 (0.0-0.4); Eosinophils % (Auto) 4.1 % (0.0-4.3); Hematocrit 41.8 % (35.5-45.6); Hemoglobin 13.8 gm/dl (11.8-15.2); Lymphocytes # (Auto) 2.1 K/mm3 (1.2-5.4); Mean Corpuscular HGB Conc 33 % (32-34); Mean Corpuscular Hemoglobin 29 pg (28-32); Mean Corpuscular Volume 89 fl (84-94); Monocytes # (Auto) 0.8 K/mm3 (0.0-0.8); Platelet Count 222 K/mm3 (140-440); Red Blood Count 4.69 M/mm3 (3.65-5.03); Red Cell Distribution Width 14.9 % (13.2-15.2)
[2018-03-19 06:00] LABS: Alanine Aminotransferase 45 units/L (7-56); Albumin 3.6 g/dL (3.9-5); BUN/Creatinine Ratio 13; Blood Urea Nitrogen 8 mg/dL (9-20); Calcium 8.6 mg/dL (8.4-10.2); Hemolysis Index 1
[2018-03-19] MEDS: LASIX IV SCH ×2 (07:03→19:40)
[2018-03-19] MEDS ORDERED: VANCOMYCIN 2,000 MG in NACL 0.9% 500 ML 500 ML IV SCH (10:00)
[2018-03-19] MEDS: K-DUR PO SCH ×2 (11:59→22:04)
[2018-03-19] MEDS: PEPCID PO SCH ×2 (11:59→22:44)
[2018-03-19] MEDS: DIOVAN PO SCH (11:59)
[2018-03-19] MEDS: TENORMIN PO SCH ×2 (12:00→22:03)
[2018-03-19] MEDS: SODIUM CHLORIDE FLUSH SYRINGE 10 ML IV SCH ×2 (12:27→22:45)
[2018-03-19] MEDS: FLOMAX PO SCH ×2 (12:29→22:04)
[2018-03-19] MEDS: LEXAPRO PO SCH (12:29)
--- NOTE | 2018-03-19 13:20 | Consultation ---
History of Present Illness Consult date: 03/19/18 Requesting physician: DRE ALMARAZ Consult reason: congestive heart failure History of present illness: The pt is a 73 YO male with a past medical history significant for HTN, DM, SSS , PPM in situ, PVCs. He is followed in our office by Dr. Christianson. He presented with complaints of BLE swelling and redness for the past 2 weeks. He denies any chest pain, SOB, palpitations, n/v, diaphoresis, dizziness or syncope. Since admission, he has been diagnosed with cellulitis and is currently receiving IV abx. CXR with [facility]; pro-BNP 1458. Echo done 01/2018 showed EF 45-50%, mild, diffuse LV hypokinesis, moderate diastolic dysfunction, LA and RA mildly enlarged, mild to mod MR, mild to mod TR , mild IL, pacemaker in RV, RVSP 34mmHg. Pharmacologic MPI stress test done 03/2009 was negative for ischemia with grossly normal LV systolic function. Past History Past Medical History: diabetes, hypertension, other (SSS) Past Surgical History: Other (PPM ) Social history: , lives with family. denies: smoking, alcohol abuse, prescription drug abuse Medications and Allergies Allergies Allergy/AdvReac Type Severity Reaction Status Date / Time No Known Allergies Allergy Unverified 11/19/13 10:42 Home Medications Medication Instructions Recorded Confirmed Last Taken Type Amlodipine Besylate [Norvasc] 5 mg PO DAILY 03/18/18 03/18/18 Unknown History Atenolol [Tenormin] 50 mg PO BID 03/18/18 03/18/18 Unknown History AtorvaSTATin [Lipitor] 40 mg PO DAILY 03/18/18 03/18/18 Unknown History Escitalopram [Lexapro] 10 mg PO DAILY 03/18/18 03/18/18 Unknown History Furosemide [Lasix] 20 mg PO DAILY 03/18/18 03/18/18 03/18/18 History Metformin HCl [Glucophage] 500 mg PO BID 03/18/18 03/18/18 Unknown History Tamsulosin HCl [Flomax] 0.4 mg PO BID 03/18/18 03/18/18 Unknown History Valsartan [Diovan] 320 mg PO DAILY 03/18/18 03/18/18 Unknown History Active Meds: Active Medications Acetaminophen (Tylenol) 650 mg PO Q4H PRN PRN Reason: Pain MILD(1-3)/Fever >100.5/FERNANDEZ Atenolol (Tenormin) 50 mg PO BID [facility] Last Admin: 03/19/18 12:00 Dose: 50 mg Atorvastatin Calcium (Lipitor) 40 mg PO DAILY [facility] Last Admin: 03/19/18 12:29 Dose: 40 mg Enoxaparin Sodium (Lovenox) 40 mg SUB-Q QDAY@2200 [facility] Escitalopram Oxalate (Lexapro) 10 mg PO DAILY [facility] Last Admin: 03/19/18 12:29 Dose: 10 mg Famotidine (Pepcid) 20 mg PO BID [facility] Last Admin: 03/19/18 11:59 Dose: 20 mg Furosemide (Lasix) 40 mg IV 0600,1800 [facility] Last Admin: 03/19/18 07:03 Dose: 40 mg Hydromorphone HCl (Dilaudid) 0.5 mg IV Q3H PRN PRN Reason: Pain , Severe (7-10) Ampicillin Sodium/Sulbactam Sodium (Unasyn/Ns 3 Gm/100 Ml) 3 gm in 100 mls @ 100 mls/hr IV Q6HR [facility]; Protocol Last Admin: 03/19/18 07:03 Dose: 100 mls/hr Vancomycin HCl 2,000 mg/ (Sodium Chloride) 520 mls @ 250 mls/hr IV Q12H [facility] Last Admin: 03/19/18 11:57 Dose: 250 mls/hr Ondansetron HCl (Zofran) 4 mg IV Q8H PRN PRN Reason: Nausea And Vomiting Oxycodone/Acetaminophen (Percocet 5/325) 1 tab PO Q6H PRN PRN Reason: Pain, Moderate (4-6) Potassium Chloride (K-Dur) 20 meq PO Q12H [facility] Last Admin: 03/19/18 11:59 Dose: 20 meq Sodium Chloride (Sodium Chloride Flush Syringe 10 Ml) 10 ml IV BID [facility] Last Admin: 03/19/18 12:27 Dose: 10 ml Sodium Chloride (Sodium Chloride Flush Syringe 10 Ml) 10 ml IV PRN PRN PRN Reason: LINE FLUSH Tamsulosin HCl (Flomax) 0.4 mg PO BID [facility] Last Admin: 03/19/18 12:29 Dose: 0.4 mg Valsartan (Diovan) 320 mg PO DAILY [facility] Last Admin: 03/19/18 11:59 Dose: 320 mg Vancomycin HCl (Vancomycin Pharmacy To Dose) 1 each IV PKCONSULT GHASSAN; Protocol Review of Systems Constitutional: no weight loss, no weight gain, no fever, no chills, no sweats Ears, nose, mouth and throat: no ear pain, no nose pain, no sinus pressure, no sinus pain Cardiovascular: leg edema (BLE), no chest pain, no orthopnea, no palpitations, no rapid/irregular heart beat, no syncope, no lightheadedness, no shortness of breath, no dyspnea on exertion, no paroxysmal nocturnal dyspnea Respiratory: no cough, no shortness of breath, no dyspnea on exertion, no congestion, no wheezing, no pain on inspiration Gastrointestinal: no abdominal pain, no nausea, no vomiting, no diarrhea, no constipation, no change in bowel habits Genitourinary Male: no dysuria, no hematuria, no flank pain, no discharge, no urinary frequency, no urinary hesitancy Musculoskeletal: no neck stiffness, no neck pain, no shooting arm pain, no arm numbness/tingling, no low back pain, no shooting leg pain, no leg numbness/ tingling, no redness of joints Integumentary: redness (BLE ), no wounds Neurological: no head injury, no paralysis, no weakness, no parathesias, no numbness, no tingling, no seizures, no syncope Psychiatric: no anxiety Endocrine: no cold intolerance, no heat intolerance Hematologic/Lymphatic: no easy bruising, no easy bleeding, no lymphadenopathy Allergic/Immunologic: no urticaria, no wheezing Physical Examination Vital Signs Temp Pulse Resp BP Pulse Ox 97.7 F 69 18 127/77 99 03/18/18 16:23 03/18/18 16:23 03/18/18 16:23 03/18/18 16:23 03/18/18 16:23 General appearance: no acute distress HEENT: Positive: PERRL, Normocephaly, Mucus Membranes Moist Neck: Positive: neck supple, trachea midline Cardiac: Positive: Reg Rate and Rhythm, S1/S2, Systolic Murmur Lungs: Positive: clear to auscultation Neuro: Positive: Grossly Intact, Cranial Nerve 2-12 Intact Abdomen: Positive: Soft. Negative: Tender Skin: Positive: Other (BLE redness ). Negative: Wound Musculoskeletal: Normal Range of Motion Extremities: Present: +1 Edema (BLE) Results 03/19/18 05:00 03/19/18 05:00 Cardiac Enzymes 03/18/18 03/19/18 Range/Units 18:36 05:00 AST 35 27 (5-40) units/L CBC 03/18/18 03/19/18 Range/Units 18:36 05:00 WBC 7.8 6.2 (4.5-11.0) K/mm3 RBC 4.68 4.69 (3.65-5.03) M/mm3 Hgb 13.8 13.8 (11.8-15.2) gm/dl Hct 41.7 41.8 (35.5-45.6) % Plt Count 223 222 (140-440) K/mm3 Lymph # 2.1 (1.2-5.4) K/mm3 [place] # 0.8 (0.0-0.8) K/mm3 Eos # 0.3 (0.0-0.4) K/mm3 Baso # 0.1 (0.0-0.1) K/mm3 Comprehensive Metabolic Panel 03/18/18 03/19/18 Range/Units 18:36 05:00 Sodium 129 L 137 D (137-145) mmol/L Potassium 4.4 3.8 (3.6-5.0) mmol/L Chloride 91.4 L 95.4 L (98-107) mmol/L Carbon Dioxide 25 31 H (22-30) mmol/L BUN 9 8 L (9-20) mg/dL Creatinine 0.5 L 0.6 L (0.8-1.5) mg/dL Glucose 100 106 H (75-100) mg/dL Calcium 8.7 8.6 (8.4-10.2) mg/dL AST 35 27 (5-40) units/L ALT 46 45 (7-56) units/L Alkaline Phosphatase 303 H 276 H (35-129) units/L Total Protein 6.2 L 5.9 L (6.3-8.2) g/dL Albumin 3.7 L 3.6 L (3.9-5) g/dL - Imaging and Cardiology Echo: report reviewed (01/2018 showed EF 45-50%, mild, diffuse LV hypokinesis, moderate diastolic dysfunction, LA and RA mildly enlarged, mild to mod MR, mild to mod TR, mild IL, pacemaker in RV. ) EKG: report reviewed, image reviewed EKG interpretations - Telemetry EKG Rhythm: Sinus Rhythm - EKG Sinus rhythms and dysrhythmias: sinus rhythm Ventricular dysrhythmias: ventricular premature com (ventricular bigeminy ) Assessment and Plan Agree with present cardiac regimen, including diuresis with IV lasix BID. No indication for repeat echo at this time given echo done in our office in 2017. Abx per primary. Assessment and plan reviewed with pt at bedside. The patient has been seen in conjunction with Dr. Reyes who agrees with the assessment and plan of care. - Patient Problems (1) Acute combined systolic and diastolic congestive heart failure Current Visit: Yes Status: Acute (2) Lower extremity cellulitis Current Visit: Yes Status: Acute (3) History of sick sinus syndrome Current Visit: No Status: Acute (4) Cardiac pacemaker in situ Current Visit: Yes Status: Acute (5) Ventricular bigeminy Current Visit: Yes Status: Acute (6) HTN (hypertension) Current Visit: Yes Status: Chronic Qualifiers: Hypertension type: essential hypertension Qualified Code(s): I10 - Essential (primary) hypertension (7) Diabetes Current Visit: Yes Status: Chronic
--- NOTE | 2018-03-19 14:36 | Progress Note ---
Assessment and Plan Assessment and plan: 73-year-old male with a significant history of heart failure and pacemaker placement, Complaints of leg swelling and generalized weakness. Also noticed redness on RLE .No fever or chills. The patient reports 1 week of constant and severe bilateral lower leg swelling, improved with elevation of the legs, exacerbated with activity, and associated with fatigue/generalized weakness with activity. No recent travel (1) Acute on chronic systolic CHF (congestive heart failure) IV Lasix-continue Cardiolgy consult with Dr Christianson (2) Cellulitis of right lower extremity Current Visit: Yes Status: Acute Plan to address problem: IV Unasyn Discontinue vancomycin (3) Localized swelling of both lower legs Current Visit: Yes Status: Chronic Plan to address problem: R/o Pulmonary HTN IV Diuretics Elevation of feet Amlodipine stopped (4) HTN (hypertension) Current Visit: Yes Status: Chronic Qualifiers: Hypertension type: essential hypertension Qualified Code(s): I10 - Essential (primary) hypertension Plan to address problem: Cont Vlasartan and Atenolol.Hold Amlodipine (5) T2DM (type 2 diabetes mellitus) Current Visit: Yes Status: Chronic Qualifiers: Diabetes mellitus alf insulin use: without intermediate card tender use Plan to address problem: On Metformin-will Hold Coverage for now Check A1c (6) BPH (benign prostatic hyperplasia) Current Visit: Yes Status: Chronic Qualifiers: Lower urinary tract symptom presence: symptoms present Plan to address problem: Cont Flomax (7) HLD (hyperlipidemia) Current Visit: Yes Status: Chronic Qualifiers: Hyperlipidemia type: mixed hyperlipidemia Qualified Code(s): E78.2 - Mixed hyperlipidemia Plan to address problem: Cont Statins (8) Depression Current Visit: Yes Status: Chronic Qualifiers: Depression Type: unspecified Qualified Code(s): F32.9 - Major depressive disorder, single episode, unspecified Plan to address problem: Cont Lexapro (9) DVT prophylaxis Current Visit: Yes Status: Acute Plan to address problem: On Lovenox GI prophylaxis initiated Discussed in detail with patient and spouse. History Interval history: Patient seen and examined, still with some shortness of breath and bilateral lower ext cellulitis. Hospitalist Physical - Physical exam Narrative exam: VITAL SIGNS: Reviewed. GENERAL: The patient appeared well nourished and normally developed. Vital signs as documented. HEAD: No signs of head trauma. EYES: Pupils are equal. Extraocular motions intact. EARS: Hearing grossly intact. MOUTH: Oropharynx is normal. NECK: No adenopathy, no JVD. CHEST: Chest with DIMINSHED breath sounds bilaterally. No wheezes, rales, or rhonchi. CARDIAC: Regular rate and rhythm. S1 and S2, without murmurs, gallops, or rubs. VASCULAR: No Edema. Peripheral pulses normal and equal in all extremities. ABDOMEN: Soft, without detectable tenderness. No sign of distention. No rebound or guarding, and no masses palpated. Bowel Sounds normal. MUSCULOSKELETAL: Good range of motion of all major joints. Extremities without clubbing, cyanosis. pLUS 2 pitting edema bilaterally. NEUROLOGIC EXAM: Alert and oriented x 3. No focal sensory or strength deficits. Speech normal. Follows commands. PSYCHIATRIC: Mood normal. SKIN: Bilateral circumferential cellulitis with erythema or warmth - Constitutional Vitals: Temp Pulse Resp BP Pulse Ox 97.7 F 64 15 105/54 96 03/18/18 16:23 03/19/18 14:01 03/19/18 14:01 03/19/18 14:01 03/19/18 14:01 General appearance: Present: no acute distress Results - Labs CBC & Chem 7: 03/19/18 05:00 03/19/18 05:00 Labs: Laboratory Last Values WBC 6.2 K/mm3 (4.5-11.0) 03/19/18 05:00 RBC 4.69 M/mm3 (3.65-5.03) 03/19/18 05:00 Hgb 13.8 gm/dl (11.8-15.2) 03/19/18 05:00 Hct 41.8 % (35.5-45.6) 03/19/18 05:00 MCV 89 fl (84-94) 03/19/18 05:00 MCH 29 pg (28-32) 03/19/18 05:00 MCHC 33 % (32-34) 03/19/18 05:00 RDW 14.9 % (13.2-15.2) 03/19/18 05:00 Plt Count 222 K/mm3 (140-440) 03/19/18 05:00 Lymph % (Auto) 34.0 % (13.4-35.0) 03/19/18 05:00 [place] % (Auto) 13.0 % (0.0-7.3) H 03/19/18 05:00 Eos % (Auto) 4.1 % (0.0-4.3) 03/19/18 05:00 Baso % (Auto) 1.8 % (0.0-1.8) 03/19/18 05:00 Lymph # 2.1 K/mm3 (1.2-5.4) 03/19/18 05:00 [place] # 0.8 K/mm3 (0.0-0.8) 03/19/18 05:00 Eos # 0.3 K/mm3 (0.0-0.4) 03/19/18 05:00 Baso # 0.1 K/mm3 (0.0-0.1) 03/19/18 05:00 Add Manual Diff Complete 03/18/18 18:36 Total Counted 100 03/18/18 18:36 Seg Neutrophils % 47.1 % (40.0-70.0) 03/19/18 05:00 Seg Neuts % (Manual) 66.0 % (40.0-70.0) 03/18/18 18:36 Band Neutrophils % 1.0 % 03/18/18 18:36 Lymphocytes % (Manual) 23.0 % (13.4-35.0) 03/18/18 18:36 Reactive Lymphs % (Man) 0 % 03/18/18 18:36 Monocytes % (Manual) 10.0 % (0.0-7.3) H 03/18/18 18:36 Eosinophils % (Manual) 0 % (0.0-4.3) 03/18/18 18:36 Basophils % (Manual) 0 % (0.0-1.8) 03/18/18 18:36 Metamyelocytes % 0 % 03/18/18 18:36 Myelocytes % 0 % 03/18/18 18:36 Promyelocytes % 0 % 03/18/18 18:36 Blast Cells % 0 % 03/18/18 18:36 Nucleated RBC % Not Reportable 03/18/18 18:36 Seg Neutrophils # 2.9 K/mm3 (1.8-7.7) 03/19/18 05:00 Seg Neutrophils # Man 5.1 K/mm3 (1.8-7.7) 03/18/18 18:36 Band Neutrophils # 0.1 K/mm3 03/18/18 18:36 Lymphocytes # (Manual) 1.8 K/mm3 (1.2-5.4) 03/18/18 18:36 Abs React Lymphs (Man) 0.0 K/mm3 03/18/18 18:36 Monocytes # (Manual) 0.8 K/mm3 (0.0-0.8) 03/18/18 18:36 Eosinophils # (Manual) 0.0 K/mm3 (0.0-0.4) 03/18/18 18:36 Basophils # (Manual) 0.0 K/mm3 (0.0-0.1) 03/18/18 18:36 Metamyelocytes # 0.0 K/mm3 03/18/18 18:36 Myelocytes # 0.0 K/mm3 03/18/18 18:36 Promyelocytes # 0.0 K/mm3 03/18/18 18:36 Blast Cells # 0.0 K/mm3 03/18/18 18:36 WBC Morphology Not Reportable 03/18/18 18:36 Hypersegmented Neuts Not Reportable 03/18/18 18:36 Hyposegmented Neuts Not Reportable 03/18/18 18:36 Hypogranular Neuts Not Reportable 03/18/18 18:36 Smudge Cells Not Reportable 03/18/18 18:36 Toxic Granulation Not Reportable 03/18/18 18:36 Toxic Vacuolation Not Reportable 03/18/18 18:36 Dohle Bodies Not Reportable 03/18/18 18:36 Pelger-Huet Anomaly Not Reportable 03/18/18 18:36 Seth Rods Not Reportable 03/18/18 18:36 Platelet Estimate Consistent w auto 03/18/18 18:36 Clumped Platelets Not Reportable 03/18/18 18:36 Plt Clumps, EDTA Not Reportable 03/18/18 18:36 Large Platelets Not Reportable 03/18/18 18:36 Giant Platelets Not Reportable 03/18/18 18:36 Platelet Satelliting Not Reportable 03/18/18 18:36 Plt Morphology Comment Not Reportable 03/18/18 18:36 RBC Morphology Not Reportable 03/18/18 18:36 Dimorphic RBCs Not Reportable 03/18/18 18:36 Polychromasia Not Reportable 03/18/18 18:36 Hypochromasia Not Reportable 03/18/18 18:36 Poikilocytosis Not Reportable 03/18/18 18:36 Anisocytosis 1+ 03/18/18 18:36 Microcytosis Not Reportable 03/18/18 18:36 Macrocytosis Not Reportable 03/18/18 18:36 Spherocytes Not Reportable 03/18/18 18:36 Pappenheimer Bodies Not Reportable 03/18/18 18:36 Sickle Cells Not Reportable 03/18/18 18:36 Target Cells Not Reportable 03/18/18 18:36 Tear Drop Cells Not Reportable 03/18/18 18:36 Ovalocytes Not Reportable 03/18/18 18:36 Helmet Cells Not Reportable 03/18/18 18:36 [place] Bodies Not Reportable 03/18/18 18:36 [place] Rings Not Reportable 03/18/18 18:36 Jj Cells Not Reportable 03/18/18 18:36 Bite Cells Not Reportable 03/18/18 18:36 Crenated Cell Not Reportable 03/18/18 18:36 Elliptocytes Not Reportable 03/18/18 18:36 Acanthocytes (Spur) Not Reportable 03/18/18 18:36 Rouleaux Not Reportable 03/18/18 18:36 Hemoglobin C Crystals Not Reportable 03/18/18 18:36 Schistocytes Not Reportable 03/18/18 18:36 Malaria parasites Not Reportable 03/18/18 18:36 Abram Bodies Not Reportable 03/18/18 18:36 Hem Pathologist Commnt No 03/18/18 18:36 D-Dimer 206.74 ng/mlDDU (0-234) 03/18/18 18:36 Sodium 137 mmol/L (137-145) D 03/19/18 05:00 Potassium 3.8 mmol/L (3.6-5.0) 03/19/18 05:00 Chloride 95.4 mmol/L (98-107) L 03/19/18 05:00 Carbon Dioxide 31 mmol/L (22-30) H 03/19/18 05:00 Anion Gap 14 mmol/L 03/19/18 05:00 BUN 8 mg/dL (9-20) L 03/19/18 05:00 Creatinine 0.6 mg/dL (0.8-1.5) L 03/19/18 05:00 Estimated GFR > 60 ml/min 03/19/18 05:00 BUN/Creatinine Ratio 13 % 03/19/18 05:00 Glucose 106 mg/dL (75-100) H 03/19/18 05:00 POC Glucose 166 (70-105) H 03/18/18 22:18 Hemoglobin A1c 7.2 % (4-6) H 03/18/18 22:00 Lactic Acid 1.20 mmol/L (0.7-2.0) 03/18/18 18:36 Calcium 8.6 mg/dL (8.4-10.2) 03/19/18 05:00 Total Bilirubin 0.70 mg/dL (0.1-1.2) 03/19/18 05:00 AST 27 units/L (5-40) 03/19/18 05:00 ALT 45 units/L (7-56) 03/19/18 05:00 Alkaline Phosphatase 276 units/L (35-129) H 03/19/18 05:00 Total Creatine Kinase 103 units/L (55-170) 03/18/18 18:36 NT-Pro-B Natriuret Pep 1458 pg/mL (0-900) H 03/18/18 18:36 Total Protein 5.9 g/dL (6.3-8.2) L 03/19/18 05:00 Albumin 3.6 g/dL (3.9-5) L 03/19/18 05:00 Albumin/Globulin Ratio 1.6 % 03/19/18 05:00
[2018-03-19] MEDS: LOVENOX SUB-Q SCH (22:04)
[2018-03-20] MEDS: UNASYN/NS 3 GM/100 ML 3 GM/100 ML BAG IV SCH ×5 (05:12→23:59)
[2018-03-20] MEDS: LASIX IV SCH ×2 (05:16→17:57)
[2018-03-20 09:13] LABS: BUN/Creatinine Ratio 18; Blood Urea Nitrogen 11 mg/dL (9-20); Calcium 8.4 mg/dL (8.4-10.2); Hemolysis Index 11
[2018-03-20] MEDS: TENORMIN PO SCH ×2 (09:37→21:24)
[2018-03-20] MEDS: DIOVAN PO SCH (09:38)
[2018-03-20] MEDS: LEXAPRO PO SCH (09:39)
[2018-03-20] MEDS: FLOMAX PO SCH ×2 (09:39→21:24)
[2018-03-20] MEDS: PEPCID PO SCH ×2 (09:39→21:24)
[2018-03-20] MEDS: K-DUR PO SCH ×2 (10:00→21:28)
[2018-03-20] MEDS: SODIUM CHLORIDE FLUSH SYRINGE 10 ML IV SCH ×2 (10:01→21:25)
[2018-03-20] MEDS ORDERED: MILK OF MAGNESIA PO PRN (10:42)
--- NOTE | 2018-03-20 10:45 | Progress Note ---
Assessment and Plan Assessment and plan: 73-year-old male with a significant history of heart failure and pacemaker placement, Complaints of leg swelling and generalized weakness. Also noticed redness on RLE .No fever or chills. The patient reports 1 week of constant and severe bilateral lower leg swelling, improved with elevation of the legs, exacerbated with activity, and associated with fatigue/generalized weakness with activity. No recent travel (1) Acute on chronic systolic CHF (congestive heart failure) IV Lasix-continue Cardiolgy consult with Dr Christianson-input noted (2) Cellulitis of right lower extremity Current Visit: Yes Status: Acute Plan to address problem: IV Unasyn Discontinued vancomycin (3) Localized swelling of both lower legs Current Visit: Yes Status: Chronic Plan to address problem: R/o Pulmonary HTN IV Diuretics Elevation of feet Amlodipine stopped (4) HTN (hypertension) Current Visit: Yes Status: Chronic Qualifiers: Hypertension type: essential hypertension Qualified Code(s): I10 - Essential (primary) hypertension Plan to address problem: Cont Vlasartan and Atenolol.Hold Amlodipine (5) T2DM (type 2 diabetes mellitus) Current Visit: Yes Status: Chronic Qualifiers: Diabetes mellitus prison insulin use: without termite renewal inspector use Plan to address problem: On Metformin-will Hold Coverage for now Check A1c (6) BPH (benign prostatic hyperplasia) Current Visit: Yes Status: Chronic Qualifiers: Lower urinary tract symptom presence: symptoms present Plan to address problem: Cont Flomax (7) HLD (hyperlipidemia) Current Visit: Yes Status: Chronic Qualifiers: Hyperlipidemia type: mixed hyperlipidemia Qualified Code(s): E78.2 - Mixed hyperlipidemia Plan to address problem: Cont Statins (8) Depression Current Visit: Yes Status: Chronic Qualifiers: Depression Type: unspecified Qualified Code(s): F32.9 - Major depressive disorder, single episode, unspecified Plan to address problem: Cont Lexapro (9) Constipation * Colace * PRN MOM (10)DVT prophylaxis Current Visit: Yes Status: Acute Plan to address problem: On Lovenox GI prophylaxis initiated Discussed in detail with patient and spouse and cardiology. History Interval history: Patient seen and examined, IMPROVING SOB, no new compliants, leg edema improving but not quit at baseline. No other adverse event reported by nursing staff. Hospitalist Physical - Physical exam Narrative exam: VITAL SIGNS: Reviewed. GENERAL: The patient appeared well nourished and normally developed. Vital signs as documented. HEAD: No signs of head trauma. EYES: Pupils are equal. Extraocular motions intact. EARS: Hearing grossly intact. MOUTH: Oropharynx is normal. NECK: No adenopathy, no JVD. CHEST: Chest with DIMINSHED breath sounds bilaterally. No wheezes, rales, or rhonchi. CARDIAC: Regular rate and rhythm. S1 and S2, without murmurs, gallops, or rubs. VASCULAR: +1 Edema. Peripheral pulses normal and equal in all extremities. ABDOMEN: Soft, without detectable tenderness. No sign of distention. No rebound or guarding, and no masses palpated. Bowel Sounds normal. MUSCULOSKELETAL: Good range of motion of all major joints. Extremities without clubbing, cyanosis. +1 pitting edema bilaterally. NEUROLOGIC EXAM: Alert and oriented x 3. No focal sensory or strength deficits. Speech normal. Follows commands. PSYCHIATRIC: Mood normal. SKIN: Bilateral circumferential cellulitis with erythema or warmth - Constitutional Vitals: Temp Pulse Resp BP Pulse Ox 97.5 F L 73 20 145/99 98 03/20/18 08:00 03/20/18 09:46 03/20/18 09:46 03/20/18 09:38 03/20/18 09:46 General appearance: Present: no acute distress Results - Labs CBC & Chem 7: 03/19/18 05:00 03/20/18 07:18 Labs: Laboratory Last Values WBC 6.2 K/mm3 (4.5-11.0) 03/19/18 05:00 RBC 4.69 M/mm3 (3.65-5.03) 03/19/18 05:00 Hgb 13.8 gm/dl (11.8-15.2) 03/19/18 05:00 Hct 41.8 % (35.5-45.6) 03/19/18 05:00 MCV 89 fl (84-94) 03/19/18 05:00 MCH 29 pg (28-32) 03/19/18 05:00 MCHC 33 % (32-34) 03/19/18 05:00 RDW 14.9 % (13.2-15.2) 03/19/18 05:00 Plt Count 222 K/mm3 (140-440) 03/19/18 05:00 Lymph % (Auto) 34.0 % (13.4-35.0) 03/19/18 05:00 [place] % (Auto) 13.0 % (0.0-7.3) H 03/19/18 05:00 Eos % (Auto) 4.1 % (0.0-4.3) 03/19/18 05:00 Baso % (Auto) 1.8 % (0.0-1.8) 03/19/18 05:00 Lymph # 2.1 K/mm3 (1.2-5.4) 03/19/18 05:00 [place] # 0.8 K/mm3 (0.0-0.8) 03/19/18 05:00 Eos # 0.3 K/mm3 (0.0-0.4) 03/19/18 05:00 Baso # 0.1 K/mm3 (0.0-0.1) 03/19/18 05:00 Add Manual Diff Complete 03/18/18 18:36 Total Counted 100 03/18/18 18:36 Seg Neutrophils % 47.1 % (40.0-70.0) 03/19/18 05:00 Seg Neuts % (Manual) 66.0 % (40.0-70.0) 03/18/18 18:36 Band Neutrophils % 1.0 % 03/18/18 18:36 Lymphocytes % (Manual) 23.0 % (13.4-35.0) 03/18/18 18:36 Reactive Lymphs % (Man) 0 % 03/18/18 18:36 Monocytes % (Manual) 10.0 % (0.0-7.3) H 03/18/18 18:36 Eosinophils % (Manual) 0 % (0.0-4.3) 03/18/18 18:36 Basophils % (Manual) 0 % (0.0-1.8) 03/18/18 18:36 Metamyelocytes % 0 % 03/18/18 18:36 Myelocytes % 0 % 03/18/18 18:36 Promyelocytes % 0 % 03/18/18 18:36 Blast Cells % 0 % 03/18/18 18:36 Nucleated RBC % Not Reportable 03/18/18 18:36 Seg Neutrophils # 2.9 K/mm3 (1.8-7.7) 03/19/18 05:00 Seg Neutrophils # Man 5.1 K/mm3 (1.8-7.7) 03/18/18 18:36 Band Neutrophils # 0.1 K/mm3 03/18/18 18:36 Lymphocytes # (Manual) 1.8 K/mm3 (1.2-5.4) 03/18/18 18:36 Abs React Lymphs (Man) 0.0 K/mm3 03/18/18 18:36 Monocytes # (Manual) 0.8 K/mm3 (0.0-0.8) 03/18/18 18:36 Eosinophils # (Manual) 0.0 K/mm3 (0.0-0.4) 03/18/18 18:36 Basophils # (Manual) 0.0 K/mm3 (0.0-0.1) 03/18/18 18:36 Metamyelocytes # 0.0 K/mm3 03/18/18 18:36 Myelocytes # 0.0 K/mm3 03/18/18 18:36 Promyelocytes # 0.0 K/mm3 03/18/18 18:36 Blast Cells # 0.0 K/mm3 03/18/18 18:36 WBC Morphology Not Reportable 03/18/18 18:36 Hypersegmented Neuts Not Reportable 03/18/18 18:36 Hyposegmented Neuts Not Reportable 03/18/18 18:36 Hypogranular Neuts Not Reportable 03/18/18 18:36 Smudge Cells Not Reportable 03/18/18 18:36 Toxic Granulation Not Reportable 03/18/18 18:36 Toxic Vacuolation Not Reportable 03/18/18 18:36 Dohle Bodies Not Reportable 03/18/18 18:36 Pelger-Huet Anomaly Not Reportable 03/18/18 18:36 Seth Rods Not Reportable 03/18/18 18:36 Platelet Estimate Consistent w auto 03/18/18 18:36 Clumped Platelets Not Reportable 03/18/18 18:36 Plt Clumps, EDTA Not Reportable 03/18/18 18:36 Large Platelets Not Reportable 03/18/18 18:36 Giant Platelets Not Reportable 03/18/18 18:36 Platelet Satelliting Not Reportable 03/18/18 18:36 Plt Morphology Comment Not Reportable 03/18/18 18:36 RBC Morphology Not Reportable 03/18/18 18:36 Dimorphic RBCs Not Reportable 03/18/18 18:36 Polychromasia Not Reportable 03/18/18 18:36 Hypochromasia Not Reportable 03/18/18 18:36 Poikilocytosis Not Reportable 03/18/18 18:36 Anisocytosis 1+ 03/18/18 18:36 Microcytosis Not Reportable 03/18/18 18:36 Macrocytosis Not Reportable 03/18/18 18:36 Spherocytes Not Reportable 03/18/18 18:36 Pappenheimer Bodies Not Reportable 03/18/18 18:36 Sickle Cells Not Reportable 03/18/18 18:36 Target Cells Not Reportable 03/18/18 18:36 Tear Drop Cells Not Reportable 03/18/18 18:36 Ovalocytes Not Reportable 03/18/18 18:36 Helmet Cells Not Reportable 03/18/18 18:36 [place] Bodies Not Reportable 03/18/18 18:36 [place] Rings Not Reportable 03/18/18 18:36 Jj Cells Not Reportable 03/18/18 18:36 Bite Cells Not Reportable 03/18/18 18:36 Crenated Cell Not Reportable 03/18/18 18:36 Elliptocytes Not Reportable 03/18/18 18:36 Acanthocytes (Spur) Not Reportable 03/18/18 18:36 Rouleaux Not Reportable 03/18/18 18:36 Hemoglobin C Crystals Not Reportable 03/18/18 18:36 Schistocytes Not Reportable 03/18/18 18:36 Malaria parasites Not Reportable 03/18/18 18:36 Abram Bodies Not Reportable 03/18/18 18:36 Hem Pathologist Commnt No 03/18/18 18:36 D-Dimer 206.74 ng/mlDDU (0-234) 03/18/18 18:36 Sodium 139 mmol/L (137-145) 03/20/18 07:18 Potassium 3.6 mmol/L (3.6-5.0) 03/20/18 07:18 Chloride 97.2 mmol/L (98-107) L 03/20/18 07:18 Carbon Dioxide 28 mmol/L (22-30) 03/20/18 07:18 Anion Gap 17 mmol/L 03/20/18 07:18 BUN 11 mg/dL (9-20) 03/20/18 07:18 Creatinine 0.6 mg/dL (0.8-1.5) L 03/20/18 07:18 Estimated GFR > 60 ml/min 03/20/18 07:18 BUN/Creatinine Ratio 18 % 03/20/18 07:18 Glucose 116 mg/dL (75-100) H 03/20/18 07:18 POC Glucose 114 (70-105) H 03/20/18 07:04 Hemoglobin A1c 7.2 % (4-6) H 03/18/18 22:00 Lactic Acid 1.20 mmol/L (0.7-2.0) 03/18/18 18:36 Calcium 8.4 mg/dL (8.4-10.2) 03/20/18 07:18 Magnesium 2.20 mg/dL (1.7-2.3) 03/19/18 15:16 Total Bilirubin 0.70 mg/dL (0.1-1.2) 03/19/18 05:00 AST 27 units/L (5-40) 03/19/18 05:00 ALT 45 units/L (7-56) 03/19/18 05:00 Alkaline Phosphatase 276 units/L (35-129) H 03/19/18 05:00 Total Creatine Kinase 103 units/L (55-170) 03/18/18 18:36 NT-Pro-B Natriuret Pep 1458 pg/mL (0-900) H 03/18/18 18:36 Total Protein 5.9 g/dL (6.3-8.2) L 03/19/18 05:00 Albumin 3.6 g/dL (3.9-5) L 03/19/18 05:00 Albumin/Globulin Ratio 1.6 % 03/19/18 05:00
--- NOTE | 2018-03-20 11:59 | Progress Note ---
Assessment and Plan Cont present cardiac management. Possible d/c home in AM. The patient has been seen in conjunction with Dr. Reyes who agrees with the assessment and plan of care. - Patient Problems (1) Acute combined systolic and diastolic congestive heart failure Current Visit: Yes Status: Acute (2) Lower extremity cellulitis Current Visit: Yes Status: Acute (3) History of sick sinus syndrome Current Visit: No Status: Acute (4) Cardiac pacemaker in situ Current Visit: Yes Status: Acute (5) Ventricular bigeminy Current Visit: Yes Status: Acute (6) HTN (hypertension) Current Visit: Yes Status: Chronic Qualifiers: Hypertension type: essential hypertension Qualified Code(s): I10 - Essential (primary) hypertension (7) Diabetes Current Visit: Yes Status: Chronic Subjective Date of service: 03/20/18 Principal diagnosis: HF; cellulitis Interval history: pt resting comfortably in bed, BLE redness and swelling improving. Objective Last Vital Signs Temp 97.5 F L 03/20/18 08:00 Pulse 73 03/20/18 09:46 Resp 20 03/20/18 09:46 BP 145/99 03/20/18 09:38 Pulse Ox 98 03/20/18 09:46 - Physical Examination General: No Apparent Distress HEENT: Positive: PERRL, Normocephaly, Mucus Membranes Moist Neck: Positive: neck supple, trachea midline Cardiac: Positive: Reg Rate and Rhythm, S1/S2 Lungs: Positive: clear to auscultation Neuro: Positive: Grossly Intact, Cranial Nerve 2-12 Intact Abdomen: Positive: Soft. Negative: Tender Skin: Positive: Other (BLE redness ). Negative: Wound Musculoskeletal: Normal Range of Motion Extremities: Present: +1 Edema (BLE) - Labs and Meds Comprehensive Metabolic Panel 03/20/18 Range/Units 07:18 Sodium 139 (137-145) mmol/L Potassium 3.6 (3.6-5.0) mmol/L Chloride 97.2 L (98-107) mmol/L Carbon Dioxide 28 (22-30) mmol/L BUN 11 (9-20) mg/dL Creatinine 0.6 L (0.8-1.5) mg/dL Glucose 116 H (75-100) mg/dL Calcium 8.4 (8.4-10.2) mg/dL - Imaging and Cardiology EKG: report reviewed, image reviewed Echo: report reviewed (01/2018 showed EF 45-50%, mild, diffuse LV hypokinesis, moderate diastolic dysfunction, LA and RA mildly enlarged, mild to mod MR, mild to mod TR, mild MS, pacemaker in RV. ) - Telemetry EKG Rhythm: Sinus Rhythm - EKG Sinus rhythms and dysrhythmias: sinus rhythm Ventricular dysrhythmias: ventricular premature com (ventricular bigeminy )
[2018-03-20] MEDS: COLACE PO SCH ×2 (14:36→21:24)
[2018-03-20] MEDS: LOVENOX SUB-Q SCH (21:24)
[2018-03-21] MEDS: LASIX IV SCH (05:39)
[2018-03-21] MEDS: UNASYN/NS 3 GM/100 ML 3 GM/100 ML BAG IV SCH (05:39)
--- NOTE | 2018-03-21 09:17 | Discharge Summary ---
Providers - Providers Date of Admission: 03/18/18 19:03 Attending physician: LASHONDA CABEZAS MD 03/18/18 21:55 Consult to Physician [CONS] Routine Comment: Consulting Provider: ELSA DE LOS SANTOS Physician Instructions: Reason For Exam: pedal edema and CHF Primary care physician: HORACIO AYERS Hospitalization Reason for admission: shortness of breath Condition: Stable Hospital course: 73-year-old male with a significant history of heart failure and pacemaker placement, Complaints of leg swelling and generalized weakness. Also noticed redness on RLE .No fever or chills. The patient reports 1 week of constant and severe bilateral lower leg swelling, improved with elevation of the legs, exacerbated with activity, and associated with fatigue/generalized weakness with activity. No recent travel. Disposition the patient was treated for acute on chronic CHF exacerbation and also cellulitis of bilateral lower extremities. He did improve remarkably all other chronic medications were managed cardiology this and the patient's his Lasix home dose was increased to 40 mg daily. Patient was treated with IV Unasyn and vancomycin and subsequently D escalated to doxycycline to complete 5 days of treatment. His cardiology outpatient for further evaluation. He also did complain of constipation which resolved prior to discharge. Discharge diagnoses (1) Acute on chronic systolic CHF (congestive heart failure) (2) Cellulitis of right lower extremity (3) Localized swelling of both lower legs (4) HTN (hypertension) (5) T2DM (type 2 diabetes mellitus) (7) HLD (hyperlipidemia) (8) Depression (9) Constipation Disposition: TO HOME OR SELFCARE Time spent for discharge: 35 mins Core Measure Documentation - Palliative Care Palliative Care/ Comfort Measures: Not Applicable - Core Measures Any of the following diagnoses?: heart failure - VTE Discharge Requirements Deep Vein Thrombosis/Pulmonary Embolism Present on Admission: No - Heart Failure Discharge Requirements CARMELLA/ARB for LVSD if EF <40%: Yes Beta denny at discharge: Yes Exam - Physical Exam Narrative exam: VITAL SIGNS: Reviewed. GENERAL: The patient appeared well nourished and normally developed. Vital signs as documented. HEAD: No signs of head trauma. EYES: Pupils are equal. Extraocular motions intact. EARS: Hearing grossly intact. MOUTH: Oropharynx is normal. NECK: No adenopathy, no JVD. CHEST: Chest with DIMINSHED breath sounds bilaterally. No wheezes, rales, or rhonchi. CARDIAC: Regular rate and rhythm. S1 and S2, without murmurs, gallops, or rubs. VASCULAR: +1 Edema. Peripheral pulses normal and equal in all extremities. ABDOMEN: Soft, without detectable tenderness. No sign of distention. No rebound or guarding, and no masses palpated. Bowel Sounds normal. MUSCULOSKELETAL: Good range of motion of all major joints. Extremities without clubbing, cyanosis. +1 pitting edema bilaterally. NEUROLOGIC EXAM: Alert and oriented x 3. No focal sensory or strength deficits. Speech normal. Follows commands. PSYCHIATRIC: Mood normal. SKIN: Bilateral circumferential cellulitis with erythema or warmth - Constitutional Vitals: Temp Pulse Resp BP Pulse Ox 98.0 F 43 L 18 131/83 96 03/20/18 23:46 03/20/18 23:46 03/20/18 23:46 03/20/18 23:46 03/20/18 23:46 Plan Activity: advance as tolerated, fall precautions Diet: low salt Special Instructions: record daily BP diary Follow up with: ELSA DE LOS SANTOS MD [Staff Physician] - 7 Days HORACIO AYERS MD [Primary Care Provider] - 3-5 Days Prescriptions: Doxycycline Hyclate [Doxycycline Hyclate TAB] 100 mg PO Q12HR #10 tab Furosemide [Lasix] 40 mg PO DAILY #60 tablet
[2018-03-21 10:29] VITALS: BP 136/93
[2018-03-21] MEDS: K-DUR PO SCH (10:30)
[2018-03-21] MEDS: FLOMAX PO SCH (10:30)
[2018-03-21] MEDS: COLACE PO SCH (10:31)
[2018-03-21] MEDS: PEPCID PO SCH (10:31)
[2018-03-21] MEDS: DIOVAN PO SCH (10:31)
[2018-03-21] MEDS: LEXAPRO PO SCH (10:31)
[2018-03-21] MEDS: TENORMIN PO SCH (10:31)
[2018-03-21] MEDS: SODIUM CHLORIDE FLUSH SYRINGE 10 ML IV SCH (10:34)
--- NOTE | 2018-03-21 12:13 | Progress Note ---
Assessment and Plan Convert IV lasix to PO lasix 40mg daily. Cont all other present cardiac management. Currently stable cardiac status. Pt may discharge home form cardiology standpoint. Follow up in our [place] office with Dr. Christianson on 04/04/2018 @ 3:00PM. The patient has been seen in conjunction with Dr. Reyes who agrees with the assessment and plan of care. - Patient Problems (1) Acute combined systolic and diastolic congestive heart failure Current Visit: Yes Status: Acute (2) Lower extremity cellulitis Current Visit: Yes Status: Acute (3) History of sick sinus syndrome Current Visit: No Status: Acute (4) Cardiac pacemaker in situ Current Visit: Yes Status: Acute (5) Ventricular bigeminy Current Visit: Yes Status: Acute (6) HTN (hypertension) Current Visit: Yes Status: Chronic Qualifiers: Hypertension type: essential hypertension Qualified Code(s): I10 - Essential (primary) hypertension (7) Diabetes Current Visit: Yes Status: Chronic (8) NSVT (nonsustained ventricular tachycardia) Current Visit: Yes Status: Acute Subjective Date of service: 03/21/18 Principal diagnosis: HF; cellulitis Interval history: pt resting comfortably in bed, BLE redness and swelling greatly improved. no current complaints. states he is ready to discharge home. tele reviewed - pt remains in ventricular bigeminy with one bout of NSVT noted overnight and frequent PVCs. Objective Last Vital Signs Temp 98.3 F 03/21/18 09:05 Pulse 81 03/21/18 10:31 Resp 20 03/21/18 10:00 BP 136/93 03/21/18 10:31 Pulse Ox 96 03/21/18 10:00 - Physical Examination General: No Apparent Distress HEENT: Positive: PERRL, Normocephaly, Mucus Membranes Moist Neck: Positive: neck supple, trachea midline Cardiac: Positive: Reg Rate and Rhythm, S1/S2 Lungs: Positive: clear to auscultation Neuro: Positive: Grossly Intact, Cranial Nerve 2-12 Intact Abdomen: Positive: Soft. Negative: Tender Skin: Positive: Other (BLE redness ). Negative: Wound Musculoskeletal: Normal Range of Motion Extremities: Present: +1 Edema (BLE) - Imaging and Cardiology EKG: report reviewed, image reviewed Echo: report reviewed (01/2018 showed EF 45-50%, mild, diffuse LV hypokinesis, moderate diastolic dysfunction, LA and RA mildly enlarged, mild to mod MR, mild to mod TR, mild SD, pacemaker in RV. ) - EKG Sinus rhythms and dysrhythmias: sinus rhythm Ventricular dysrhythmias: ventricular premature com (ventricular bigeminy )
== END 2018-03-21 14:51 | disposition home or self-care (01) | DRG 602 ==
LOC: ED 16:19 → 4A 19:03
PROVIDERS: ADMIT Internal Medicine; ATTEND Internal Medicine
DX: L03.115 Cellulitis of right lower limb (principal); I50.43 Acute on chronic combined systolic (congestive) and diastolic (congestive) heart failure; I47.2 Ventricular tachycardia; I11.0 Hypertensive heart disease with heart failure; E11.9 Type 2 diabetes mellitus without complications; F32.9 Major depressive disorder, single episode, unspecified; K59.00 Constipation, unspecified; Z95.0 Presence of cardiac pacemaker; Z87.442 Personal history of urinary calculi; N40.0 Benign prostatic hyperplasia without lower urinary tract symptoms; I49.5 Sick sinus syndrome; E78.2 Mixed hyperlipidemia
CPT/HCPCS: 36415; 71045; 80048; 80053; 82140; 82550; 82962; 83036; 83735; 83880; 85007; 85025; 85379; 93005; 93010; 93970; 96365; 96366; 96372; 96375; A9270-GY; J0295; J1650; J1815; J1940; J3370; J7040

== ENCOUNTER 2018-04-24 07:52 | Observation (INO) | payer MEDICARE ==
[~2018-04-24 07:52] MED LIST: ECOTRIN PO NR; ECOTRIN PO ONE; NACL 0.9% 500 ML 500 ML ONE
[2018-04-24] MEDS ORDERED: NACL 0.9% 500 ML 500 ML IV SCH (08:00)
[2018-04-24] MEDS ORDERED: VERSED ONE (08:05)
[2018-04-24] MEDS ORDERED: CALAN ONE (08:05)
[2018-04-24] MEDS ORDERED: HEPARIN/NS 5000 UNIT/500ML(CATH LAB) 1,000 ML IR ONE (08:05)
[2018-04-24] MEDS ORDERED: SUBLIMAZE ONE (08:05)
[2018-04-24] MEDS ORDERED: NITROGLYCERIN SYRINGE 0 ML ONE (08:06)
[2018-04-24 08:10] LABS: INR 1.12 (0.87-1.13)
[2018-04-24 08:12] LABS: Basophils # (Auto) 0.1 K/mm3 (0.0-0.1); Basophils % (Auto) 1.3 % (0.0-1.8); Eosinophils # (Auto) 0.2 K/mm3 (0.0-0.4); Eosinophils % (Auto) 3.3 % (0.0-4.3); Hematocrit 39.2 % (35.5-45.6); Hemoglobin 13.2 gm/dl (11.8-15.2); Lymphocytes # (Auto) 1.8 K/mm3 (1.2-5.4); Lymphocytes % (Auto) 28.7 % (13.4-35.0); Mean Corpuscular HGB Conc 34 % (32-34); Mean Corpuscular Hemoglobin 30 pg (28-32); Mean Corpuscular Volume 88 fl (84-94); Monocytes # (Auto) 0.8 K/mm3 (0.0-0.8); Monocytes % (Auto) 13.1 % (0.0-7.3); Platelet Count 190 K/mm3 (140-440); Red Blood Count 4.46 M/mm3 (3.65-5.03); Red Cell Distribution Width 15.9 % (13.2-15.2)
[2018-04-24 08:29] LABS: BUN/Creatinine Ratio 25; Blood Urea Nitrogen 15 mg/dL (9-20); Calcium 8.6 mg/dL (8.4-10.2); Hemolysis Index 14
[2018-04-24] MEDS: XYLOCAINE 2% INFILTRATI ONE ×2 (08:53→09:05)
[2018-04-24] MEDS: CALAN ONE ×2 (08:53→09:05)
[2018-04-24] MEDS: HEPARIN 10,000 UNITS/10 ML ONE ×3 (08:54→09:18)
[2018-04-24] MEDS ORDERED: HEPARIN 10,000 UNITS/10 ML ONE (09:42)
[2018-04-24] MEDS ORDERED: BRILINTA ONE (09:47)
[2018-04-24] MEDS ORDERED: ALUM-MAG HYDROX-SIMETH 200-200-20MG/5ML ONE (09:48)
--- NOTE | 2018-04-24 10:14 | Cardiac Catherization Report ---
CARDIAC CATHETERIZATION AND CORONARY INTERVENTION REPORT CLINICAL INFORMATION: The patient is a 73-year-old white gentleman with history of hypertension, diabetes mellitus, status post permanent pacemaker insertion many years ago, dilated with diagnosis of cardiomyopathy with ejection fraction of 45% with [id number] mitral regurgitation. He is having chest pain in spite of negative stress test. However, there is evidence of prior inferior wall myocardial infarction with residual degree of ischemia. Because of persistent anginal pain in spite of medical therapy, which he is on for many years included atenolol, losartan, and Lasix. He is scheduled for cardiac catheterization for diagnostic purposes mainly and in spite of treatment he is having chest pain limiting his activities. The patient and were explained of the procedure, potential complications and alternatives of therapy available. DESCRIPTION OF PROCEDURE: The patient was brought to the catheterization laboratory. Evaluated for moderate sedation and he was felt appropriate for moderate sedation, received IV Versed and fentanyl. Right wrist area and forearm thoroughly cleansed with Betadine solution. Sterile drapes were applied. Local anesthesia was achieved using 2% Xylocaine. Right radial artery puncture was made using 21-gauge arterial puncture needle. A 5-Belarusian slender sheath was introduced. Using multipurpose catheter, left ventriculogram was performed in [place] projection using an injection followed by the angiograms of the left coronary artery and right coronary artery in multiple views. At the end of the procedure, the patient was noted to have significant very severe stenosis of the mid RCA and procedure was converted into interventional procedure. Following findings were noted. HEMODYNAMICS: 1. Opening aortic pressure 141/78, left ventricular pressure 138/34. No gradient across the aortic valve. Estimated ejection fraction of 40%. Mild diffuse hypokinesis noted. Mitral regurgitation could not be evaluated because of limited amount of dye injected. Left ventricular size appeared to be mildly increased. Ejection fraction estimated to be 40%. 2. Left coronary artery arises normally from left coronary cusp. Left main, LAD and its branches, which curves around the apex and circumflex artery, which is nondominant vessel showed only very mild smooth irregularities. 3. Right coronary artery is normal from right coronary cusp. There is diffuse disease, particularly very severe stenosis more than 95-98% stenosis in the mid RCA with adjacent 60-70% stenosis. Also, distal vessel has smooth 40-50% lesion. This is a large vessel. COLLATERALS: None. FINAL IMPRESSION: 1. Mild to moderate LV dysfunction, ejection fraction of 40%. 2. Left coronary system without significant disease; however, very large dominant RCA has severe, more than 95% stenosis in the mid part. Considering his symptomatology and with indeterminate treadmill test with question of previous inferior infarct and residual ischemia considering the severity of the lesion and size of the vessel it was felt the patient would benefit from intervention of the RCA. Coronary intervention, namely stent placement of the mid RCA. PROCEDURE: The patient has indwelling slender sheath in the right radial artery. The patient received extra dose of 5000 units of intravenous heparin. Subsequently, JR4 guiding catheter was advanced and engaged right coronary artery. A 0.014 inch Winston XT wire was advanced into the distal RCA without much difficulty. Initially was dilated with 2.5 x 15 mm Euphora balloon followed by placement of a 3.0 x 28 mm Xience Alpine stent inflated to nominal pressure of 10 atmospheres with very good result. Lesion was reduced from more than 95% to probably less than 5-10% stenosis. There is some ectasia distal to the stent placement. No proximal or distal dissection noted. No complications were noted. LESTER 3 flow was noted pre and post-procedure. The patient tolerated the procedure well without any significant chest pain or EKG changes except for frequent PVCs. Hemodynamically stable. The patient's post-procedure ACT was 200 seconds given extra dose of 3000 units of heparin and received 180 mg of Brilinta. The patient will be continued on aspirin. FINAL IMPRESSION: 1. Uncomplicated drug-eluting stent placement of the mid RCA, which is very severe, supplying a large distal vascular bed with symptoms and indeterminate stress thallium. 2. Underlying cardiomyopathy. The patient will be continued on aspirin and Brilinta in addition to statins. The patient had history of permanent pacemaker inserted many years ago, which is functioning well. Will be monitored in telemetry for the next 12-24 hours. Procedure is uncomplicated. JOB# [id number] LAZARO/MORALES KELLER
[2018-04-24] MEDS ORDERED: TYLENOL PO PRN (10:58)
[2018-04-24] MEDS ORDERED: ZOFRAN IV PRN (10:58)
[2018-04-24] MEDS: COZAAR PO SCH (11:41)
[2018-04-24] MEDS: LEXAPRO PO SCH (13:20)
[2018-04-24] MEDS: BRILINTA PO SCH (22:19)
[2018-04-25 06:43] LABS: Basophils # (Auto) 0.1 K/mm3 (0.0-0.1); Eosinophils # (Auto) 0.2 K/mm3 (0.0-0.4); Eosinophils % (Auto) 2.4 % (0.0-4.3); Hematocrit 42.4 % (35.5-45.6); Hemoglobin 14.3 gm/dl (11.8-15.2); Lymphocytes # (Auto) 2.2 K/mm3 (1.2-5.4); Lymphocytes % (Auto) 22.5 % (13.4-35.0); Mean Corpuscular HGB Conc 34 % (32-34); Mean Corpuscular Hemoglobin 30 pg (28-32); Mean Corpuscular Volume 88 fl (84-94); Monocytes # (Auto) 1.3 K/mm3 (0.0-0.8); Platelet Count 195 K/mm3 (140-440); Red Blood Count 4.82 M/mm3 (3.65-5.03); Red Cell Distribution Width 15.6 % (13.2-15.2)
[2018-04-25 07:06] LABS: Creatine Kinase MB 3.8 ng/mL (0.0-4.0)
[2018-04-25 07:07] LABS: BUN/Creatinine Ratio 23; Blood Urea Nitrogen 14 mg/dL (9-20); Calcium 9.1 mg/dL (8.4-10.2); Hemolysis Index 0
[2018-04-25] MEDS: LEXAPRO PO SCH (09:53)
[2018-04-25] MEDS: COZAAR PO SCH (09:53)
[2018-04-25] MEDS: BRILINTA PO SCH (09:54)
[2018-04-25 09:55] VITALS: BP 146/87
[2018-04-25] MEDS ORDERED: TENORMIN PO SCH (10:00)
[2018-04-25] MEDS ORDERED: LASIX PO SCH (10:00)
[2018-04-25] MEDS ORDERED: BABY ASPIRIN PO SCH (10:00)
--- NOTE | 2018-04-25 10:16 | Short Stay Summary ---
Short Stay Documentation Date of service: 04/25/18 - History H&P: obtained from office - Allergies and Medications Current Medications: Allergies No Known Allergies Allergy (Unverified 11/19/13 10:42) Home Medications Medication Instructions Recorded Confirmed Last Taken Type Atenolol [Tenormin] 50 mg PO BID 03/18/18 04/24/18 04/24/18 07:00 History AtorvaSTATin [Lipitor] 40 mg PO DAILY 03/18/18 04/24/18 04/23/18 History Escitalopram [Lexapro] 10 mg PO DAILY 03/18/18 04/24/18 04/23/18 History Metformin HCl [Glucophage] 500 mg PO BID 03/18/18 04/24/18 04/23/18 History Tamsulosin HCl [Flomax] 0.4 mg PO BID 03/18/18 04/24/18 04/23/18 History Doxycycline Hyclate [Doxycycline 100 mg PO Q12HR #10 tab 03/21/18 04/24/1804/23 Rx Hyclate TAB] Furosemide [Lasix] 40 mg PO DAILY #60 tablet 03/21/18 04/24/18 04/24/18 11:00 Rx [place]-3S/Dha/Epa/Fish Oil [Fish 1 each PO DAILY 04/24/18 04/24/18 04/23/18 History Oil 1,200 mg Softgel] Turmeric/Turmeric Root Extract 1 each PO DAILY 04/24/18 04/24/18 04/23/18 History [Turmeric 450-50 mg Capsule] Active Medications Acetaminophen (Tylenol) 650 mg PO Q6H PRN PRN Reason: Pain, Mild (1-3) Aspirin (Baby Aspirin) 81 mg PO QDAY [facility] Last Admin: 04/25/18 09:53 Dose: 81 mg Atenolol (Tenormin) 50 mg PO QDAY [facility] Last Admin: 04/25/18 09:52 Dose: 50 mg Atorvastatin Calcium (Lipitor) 40 mg PO QHS [facility] Escitalopram Oxalate (Lexapro) 10 mg PO QDAY [facility] Last Admin: 04/25/18 09:53 Dose: 10 mg Furosemide (Lasix) 40 mg PO DAILY [facility] Last Admin: 04/25/18 09:53 Dose: 40 mg Losartan Potassium (Cozaar) 100 mg PO QDAY [facility] Last Admin: 04/25/18 09:53 Dose: 100 mg Ondansetron HCl (Zofran) 4 mg IV Q8H PRN PRN Reason: Nausea And Vomiting Ticagrelor (Brilinta) 90 mg PO BID [facility] Last Admin: 04/25/18 09:54 Dose: 90 mg - Physical exam General appearance: no acute distress Integumentary: no rash, no growths, no abnormal pigmentation HEENT: Atraumatic, PERRLA Lungs: Clear to auscultation Heart: Regular rate, Normal S1, Normal S2 Gastrointestinal: normal, normoactive bowel sounds Extremities: no ischemia, pulses intact, pulses symmetrical Neurological: Normal gait, Normal speech, Strength at 5/5 X4 ext - Brief post op/procedure progress note Date of procedure: 04/24/18 Pre-op diagnosis: chest pain Post-op diagnosis: other (CAD) Procedure: [facility] with PCI - see dictated cath report Anesthesia: local Estimated blood loss: none Condition: stable - Disposition Condition at discharge: Stable Disposition: DC-01 TO HOME OR SELFCARE - Discharge Diagnoses (1) CAD (coronary artery disease) Status: Chronic (2) Stented coronary artery Status: Chronic (3) Cardiomyopathy Status: Chronic (4) Cardiac pacemaker in situ Status: Chronic (5) Diabetes Status: Chronic (6) HLD (hyperlipidemia) Status: Chronic Qualifiers: (7) HTN (hypertension) Status: Chronic Qualifiers: Short Stay Discharge Plan Activity: advance as tolerated Diet: low fat, low cholesterol, low salt, diabetic Wound: open to air, keep clean and dry, per your surgeon's advice Follow up with: HORACIO AYERS MD [Primary Care Provider] - 7 Days ELSA DE LOS SANTOS MD [Staff Physician] - 7 Days Prescriptions: Ticagrelor [Brilinta] 90 mg PO BID #60 tablet
== END 2018-04-25 14:27 | disposition home or self-care (01) ==
LOC: CATHLABREC 07:52 → 4A 10:51
PROVIDERS: ADMIT Internal Medicine; ATTEND Internal Medicine
DX: I25.10 Atherosclerotic heart disease of native coronary artery without angina pectoris (principal); I10 Essential (primary) hypertension; I42.9 Cardiomyopathy, unspecified; E11.9 Type 2 diabetes mellitus without complications; E78.5 Hyperlipidemia, unspecified; Z95.0 Presence of cardiac pacemaker
CPT/HCPCS: 36415; 71045; 80048; 82550; 82553; 82962; 84484; 85025; 85347; 85610; 85730; 87116; 93005; 93010; 93458; C1725; C1769; C1874; C1887; C1894; C9600; G0378; J1644; J2250; J3010; J7040; 92928; Q9967

== ENCOUNTER 2018-08-30 15:38 | Inpatient (IN) | payer MEDICARE ==
--- NOTE | 2018-08-30 16:34 | Emergency Department Report ---
HPI - General Chief Complaint: Fall Time Seen by Provider: 08/30/18 16:15 - HPI HPI: Room 3 The patient is a 73-year-old male presenting with a chief complaint of frequent falling. The patient states his experience frequent falling intermittently since June. Patient denies any preceding symptoms but states he loses balance easily whenever he has some type of weight in his hand. The patient denies preceding palpitations, dizziness, chest pain or shortness of breath. Patient denies losing consciousness with his falls. Patient states she has pain in bilateral flanks and bilateral hips since a fall yesterday. When asked how is feeling currently the patient states right now "I feel good." Location: [See above] Duration: [See above] Quality: [See above] Severity: [See above] Modifying factors: [see above] Context: [see above] Mode of transportation: [not driving] ED Past Medical Hx - Past Medical History Hx Hypertension: Yes (1981) Hx Heart Attack/AMI: Yes (from EKG) Hx Congestive Heart Failure: Yes Hx Diabetes: Yes Hx Kidney Stones: Yes Hx Psychiatric Treatment: Yes (depression) Additional medical history: Pacemaker - Surgical History Past Surgical History?: Yes Hx Pacemaker: Yes Additional Surgical History: Prostate trim and biopsy - Family History Family history: no significant - Social History Smoking Status: Never Smoker Substance Use Type: None (denies illicit drug use) - Medications Home Medications: Home Medications Medication Instructions Recorded Confirmed Last Taken Type Atenolol [Tenormin] 50 mg PO BID 03/18/18 04/24/18 04/24/18 07:00 History AtorvaSTATin [Lipitor] 40 mg PO DAILY 03/18/18 04/24/18 04/23/18 History Escitalopram [Lexapro] 10 mg PO DAILY 03/18/18 04/24/18 04/23/18 History Metformin HCl [Glucophage] 500 mg PO BID 03/18/18 04/24/18 04/23/18 History Tamsulosin HCl [Flomax] 0.4 mg PO BID 03/18/18 04/24/18 04/23/18 History Furosemide [Lasix] 40 mg PO DAILY #60 tablet 03/21/18 04/24/18 04/24/18 11:00 Rx [place]-3S/Dha/Epa/Fish Oil [Fish 1 each PO DAILY 04/24/18 04/24/18 04/23/18 History Oil 1,200 mg Softgel] Aspirin [Aspirin BABY CHEW TAB] 81 mg PO QDAY tab.chew 04/25/18 Unknown Rx Escitalopram [Lexapro] 10 mg PO QDAY tablet 04/25/18 Unknown Rx Losartan [Cozaar] 100 mg PO QDAY tablet 04/25/18 Unknown Rx Ticagrelor [Brilinta] 90 mg PO BID #60 tablet 04/25/18 Unknown Rx Amoxicillin/K Clav Tab [Augmentin 1 tab PO Q12HR #10 tab 08/19/18 Unknown Rx 875 mg] Carvedilol [Coreg] 3.125 mg PO BID #60 tablet 08/19/18 Unknown Rx Levothyroxine [Synthroid] 25 mcg PO DAILY@0600 #30 tablet 08/19/18 Unknown Rx ED Review of Systems ROS: Stated complaint: HIP PAIN AFTER FALL Other details as noted in HPI Constitutional: no symptoms reported Eyes: denies: eye pain ENT: denies: throat pain Respiratory: denies: shortness of breath Cardiovascular: denies: chest pain, palpitations Endocrine: no symptoms reported Gastrointestinal: denies: abdominal pain Genitourinary: denies: dysuria Musculoskeletal: myalgia Skin: other (ecchymosis) Neurological: denies: headache Physical Exam - Physical Exam Vital Signs: Vital Signs 08/30/18 15:56 Pulse Rate 41 L Respiratory 16 Rate Blood Pressure 102/58 O2 Sat by Pulse 97 Oximetry Physical Exam: GENERAL: The patient is well-developed well-nourished male lying on stretcher not appearing to be in acute distress. Patient pale HEENT: Normocephalic. Atraumatic. Extraocular motions are intact. Patient has moist mucous membranes. NECK: Supple. Trachea midline. No axial tenderness to palpation CHEST/LUNGS: Clear to auscultation. There is no respiratory distress noted. HEART/CARDIOVASCULAR: Regular. There is no tachycardia. There is no gallop rub or murmur. ABDOMEN: Abdomen is soft, with mild discomfort to palpation in the right upper quadrant. Patient has normal bowel sounds. There is no abdominal distention. SKIN: There is ecchymosis to the left flank and left upper back. There is no diaphoresis. NEURO: The patient is awake, alert, and oriented. The patient is cooperative. The patient has no focal neurologic deficits. The patient has normal speech. Cranial nerves II through XII grossly intact, no drift. Moves all extremity is well. MUSCULOSKELETAL: There is tenderness to palpation of the left hip. There is no tenderness to palpation of the axial thoracic or lumbar spine. There is no tenderness to palpation of all 4 extremities or clavicles. ED Course Vital Signs 08/30/18 15:56 Pulse Rate 41 L Respiratory 16 Rate Blood Pressure 102/58 O2 Sat by Pulse 97 Oximetry ED Medical Decision Making - Lab Data Result diagrams: 08/30/18 16:29 08/30/18 16:29 Laboratory Tests 08/30/18 08/30/18 08/30/18 16:29 16:29 16:29 WBC 6.4 RBC 3.71 Hgb 10.9 L Hct 33.0 L MCV 89 MCH 29 MCHC 33 RDW 16.3 H Plt Count 192 PT 16.2 H INR 1.26 H APTT 28.6 Sodium 142 Potassium 3.6 Chloride 101.2 Carbon Dioxide 30 Anion Gap 14 BUN 24 H Creatinine 0.8 Estimated GFR > 60 BUN/Creatinine Ratio 30 Glucose 110 H Calcium 8.9 Magnesium Total Creatine Kinase 151 CK-MB (CK-2) 3.6 CK-MB (CK-2) Rel Index 2.3 Troponin T 0.016 NT-Pro-B Natriuret Pep 3304 H TSH Free T4 Blood Type Antibody Screen 08/30/18 08/30/18 08/30/18 16:29 16:29 16:35 WBC RBC Hgb Hct MCV MCH MCHC RDW Plt Count PT INR APTT Sodium Potassium Chloride Carbon Dioxide Anion Gap BUN Creatinine Estimated GFR BUN/Creatinine Ratio Glucose Calcium Magnesium 2.10 Total Creatine Kinase CK-MB (CK-2) CK-MB (CK-2) Rel Index Troponin T NT-Pro-B Natriuret Pep TSH 7.920 H Free T4 1.11 Blood Type A POSITIVE Antibody Screen Negative - EKG Data -: EKG Interpreted by Al EKG shows normal: sinus rhythm Rate: normal - EKG Data When compared to previous EKG there are: changes noted Interpretation: other (bigeminy) - Radiology Data Radiology results: report reviewed (bilateral hip x-ray, chest x-ray with bilateral rib series, CT head, CT abdomen and pelvis), image reviewed (bilateral hip x-ray, chest x-ray with bilateral rib series, CT head, CT abdomen and pelvis) interpreted by vt: Bilateral hip x-ray-no acute fracture Chest x-ray with bilateral rib series-no rib fracture seen. No pneumothorax Findings [address] [address] XRay Report Signed Patient: MARIZOL VIEIRA MR#: [id number] : 1945 Acct:[id number] Age/Sex: 73 / M ADM Date: 08/30/18 Loc: ED Attending Dr: Ordering Physician: SANGITA FRANCES MD Date of Service: 08/30/18 Procedure(s): XR hips BILAT 2V w/pelvis Accession Number(s): [id number] cc: SANGITA FRANCES MD Fluoro Time In Minutes: FINAL REPORT PROCEDURE: XR HIPS BILAT 2V W/PELVIS TECHNIQUE: AP view of the pelvis and lateral views of the bilateral hips HISTORY: post Fall, hip pain COMPARISON: CT abdomen pelvis 08/08/2018 FINDINGS: No acute fracture or joint dislocation is seen. Mild bilateral hip joint osteoarthritis. There is an indeterminate etiology 2.6 centimeters sclerotic focus in the ileum as seen on recent CT IMPRESSION: No acute fracture is seen Transcribed By: [facility] Dictated By: ROBERT GAMBLE M.D. Electronically Authenticated By: ROBERT GAMBLE M.D. Signed Date/Time: 08/30/181818 DD/ 20 TD/TT: 08/30/181820 Chest x-ray with bilateral rib series (read by radiologist)-no rib fractures are identified. [address] [address] Cat Scan Report Signed Patient: MARIZOL VIEIRA MR#: [id number] : 0 1945 Acct:[id number] Age/Sex: 73 / M ADM Date: 08/30/18 Loc: ED Attending Dr: Ordering Physician: SANGITA FRANCES MD Date of Service: 08/30/18 Procedure(s): CT head/brain wo con Accession Number(s): [id number] cc: SANGITA FRANCES MD FINAL REPORT EXAM: CT HEAD/BRAIN WO CON HISTORY: frequent falls TECHNIQUE: 2.5 millimeter axial images from the skullbase to the vertex. Comparison: None FINDINGS: There is no evidence of an acute intracranial process, intracranial hemorrhage or mass effect. Ventricular size is concordant with the degree of atrophy. The visualized portions of the orbits, paranasal and mastoid sinuses are unremarkable. The bony structures are unremarkable. There is no evidence of fracture. IMPRESSION: 1. No evidence of an acute intracranial process, intracranial hemorrhage or mass effect. Transcribed By: ED Dictated By: AUSTIN PINTO MD Electronically Authenticated By: AUSTIN PINTO MD Signed Date/Time: 08/30/182008 DD/ 10 TD/TT: 08/30/182010 [facility] [address] [place] [address] Cat Scan Report Signed Patient: MARIZOL VIEIRA MR#: [id number] : 1945 Acct:[id number] Age/Sex: 73 / M ADM Date: 08/30/18 Loc: ED Attending Dr: Ordering Physician: SANGITA FRANCES MD Date of Service: 08/30/18 Procedure(s): CT abdomen pelvis w con Accession Number(s): [id number] cc: SANGITA FRANCES MD FINAL REPORT EXAM: CT ABDOMEN PELVIS W CON HISTORY: right upper quadrant abdominal pain after fall TECHNIQUE: Following administration of IV contrast axial helical imaging was performed through the abdomen and pelvis with sagittal and coronal reformatted images obtained. Delayed axial helical imaging was also performed through the abdomen and pelvis. Comparison: CT abdomen and pelvis dated August 08, 2018 FINDINGS: Visualization detail in portions of the abdomen and pelvis is limited by motion artifact. The study remains of diagnostic quality. There are moderate-sized bilateral pleural fluid collections, right greater than left. These are not significantly changed in the interval. There is a moderate size pericardial fluid collection. This is not significantly changed in the interval. The liver, spleen, pancreas and adrenal glands are unremarkable in appearance. The gallbladder is moderately distended and unremarkable. There are nonobstructing stones in the renal pelvis bilater ally. There is no evidence of hydronephrosis. The bowel is normal caliber. There is a small amount of free fluid in the abdomen and pelvis similar in appearance to the previous study. The appendix is normal caliber. There is a moderate amount of stool in the ascending, transverse and descending colon. There is no evidence of pneumoperitoneum. The abdominal aorta is normal caliber. There is no evidence of pathologic intra-abdominal adenopathy by CT size criteria. The urinary bladder is mildly distended and unremarkable. The prostate gland is enlarged and heterogeneous in appearance with maximal axial dimension of 5.5 centimeters. The bony structures are unremarkable. There is diffuse anasarca. IMPRESSION: 1. No significant change in appearance of moderate-sized pericardial fluid collection, moderate-sized bilateral pleural fluid collections, ascites and diffuse anasarca. 2. Moderate amount of stool throughout the colon. Transcribed By: ED Dictated By: AUSTIN PINTO MD Electronically Authenticated By: AUSTIN PINTO MD Signed Date/Time: 08/30/182016 DD/ 19 TD/TT: 08/30/182019 - Differential Diagnosis symptomatic anemia, ICH, Critical care attestation.: If time is entered above; I have spent that time in minutes in the direct care of this critically ill patient, excluding procedure time. ED Disposition Clinical Impression: Bigeminy, Frequent falls Disposition: DC-09 OP ADMIT IP TO THIS HOSP Is pt being admited?: Yes Does the pt Need Aspirin: Yes Condition: Fair Referrals: PRIMARY CARE, [Primary Care Provider] - 3-5 Days Time of Disposition: 20:27 (hospitalist paged (Dr Walsh))
[2018-08-30 17:03] LABS: Hemoglobin 10.9 gm/dl (11.8-15.2); Mean Corpuscular HGB Conc 33 % (32-34); Mean Corpuscular Volume 89 fl (84-94); Platelet Count 192 K/mm3 (140-440); Red Blood Count 3.71 M/mm3 (3.65-5.03); Red Cell Distribution Width 16.3 % (13.2-15.2)
[2018-08-30 17:18] LABS: INR 1.26 (0.87-1.13)
[2018-08-30 17:19] LABS: Partial Thromboplastin Time 28.6 Sec. (24.2-36.6)
[2018-08-30 17:25] LABS: Creatine Kinase MB 3.6 ng/mL (0.0-4.0)
[2018-08-30 17:28] LABS: BUN/Creatinine Ratio 30; Blood Urea Nitrogen 24 mg/dL (9-20); Calcium 8.9 mg/dL (8.4-10.2); Hemolysis Index 2
[2018-08-30 17:37] LABS: Free T4 (Free Thyroxine) 1.11 ng/dL (0.76-1.46)
--- NOTE | 2018-08-30 18:19 | XRay Report ---
FINAL REPORT PROCEDURE: XR HIPS BILAT 2V W/PELVIS TECHNIQUE: AP view of the pelvis and lateral views of the bilateral hips HISTORY: post Fall, hip pain COMPARISON: CT abdomen pelvis 08/08/2018 FINDINGS: No acute fracture or joint dislocation is seen. Mild bilateral hip joint osteoarthritis. There is an indeterminate etiology 2.6 centimeters sclerotic focus in the ileum as seen on recent CT IMPRESSION: No acute fracture is seen
--- NOTE | 2018-08-30 18:22 | XRay Report ---
FINAL REPORT PROCEDURE: XR RIBS BILAT W/PA CHEST 4+V TECHNIQUE: Bilateral rib radiographs, minimum of 4 views, including PA projection. CPT 34012 HISTORY: rib pain after fall, Chest pain 786.50 COMPARISON: No prior studies are available for comparison. FINDINGS: Heart: Cardiac silhouette is at the upper limit of normal in size. Mediastinum/Vessels: Normal . Lungs: Normal . Pleural space: Normal . Pneumothorax: None . Bony thorax/ribs: No acute or displaced rib fractures. Dual lead left-sided pacemaker is present IMPRESSION: No rib fractures are identified
--- NOTE | 2018-08-30 20:09 | Cat Scan Report ---
FINAL REPORT EXAM: CT HEAD/BRAIN WO CON HISTORY: frequent falls TECHNIQUE: 2.5 millimeter axial images from the skullbase to the vertex. Comparison: None FINDINGS: There is no evidence of an acute intracranial process, intracranial hemorrhage or mass effect. Ventricular size is concordant with the degree of atrophy. The visualized portions of the orbits, paranasal and mastoid sinuses are unremarkable. The bony structures are unremarkable. There is no evidence of fracture. IMPRESSION: 1. No evidence of an acute intracranial process, intracranial hemorrhage or mass effect.
--- NOTE | 2018-08-30 20:17 | Cat Scan Report ---
FINAL REPORT EXAM: CT ABDOMEN PELVIS W CON HISTORY: right upper quadrant abdominal pain after fall TECHNIQUE: Following administration of IV contrast axial helical imaging was performed through the a bdomen and pelvis with sagittal and coronal reformatted images obtained. Delayed axial helical imagin g was also performed through the abdomen and pelvis. Comparison: CT abdomen and pelvis dated August 08, 2018 FINDINGS: Visualization detail in portions of the abdomen and pelvis is limited by motion artifact. The study r emains of diagnostic quality. There are moderate-sized bilateral pleural fluid collections, right greater than left. These are not significantly changed in the interval. There is a moderate size pericardial fluid collection. This is not significantly changed in the inter boom. The liver, spleen, pancreas and adrenal glands are unremarkable in appearance. The gallbladder is moderately distended and unremarkable. There are nonobstructing stones in the renal pelvis bilaterally. There is no evidence of hydronephros is. The bowel is normal caliber. There is a small amount of free fluid in the abdomen and pelvis similar in appearance to the previous study. The appendix is normal caliber. There is a moderate amount of stool in the ascending, transverse and descending colon. There is no evidence of pneumoperitoneum. The abdominal aorta is normal caliber. There is no evidence of pathologic intra-abdominal adenopathy by CT size criteria. The urinary bladder is mildly distended and unremarkable. The prostate gland is enlarged and heterogeneous in appearance with maximal axial dimension of 5.5 ce ntimeters. The bony structures are unremarkable. There is diffuse anasarca. IMPRESSION: 1. No significant change in appearance of moderate-sized pericardial fluid collection, moderate-sized bilateral pleural fluid collections, ascites and diffuse anasarca. 2. Moderate amount of stool throughout the colon.
[2018-08-30] MEDS ORDERED: ASPIRIN PO ONE (20:28)
[2018-08-30] MEDS ORDERED: D50W (25GM) Syringe IV PRN (22:47)
[2018-08-30] MEDS ORDERED: ZOFRAN IV PRN (22:47)
[2018-08-30] MEDS ORDERED: TYLENOL PO PRN (22:47)
[2018-08-30] MEDS ORDERED: SODIUM CHLORIDE FLUSH SYRINGE 10 ML IV PRN (22:47)
--- NOTE | 2018-08-30 22:49 | History and Physical Report ---
History of Present Illness Date of examination: 08/30/18 Date of admission: 08/30/18 20:28 History of present illness: 73-year-old man history of hypertension, diabetes, coronary artery disease, hyperlipidemia, CHF comes emergency room because its legs are weak and he's gotten to be off balance especially when leaning forward or sideways, usually sustaining a fall. He has been having frequent falls. No chest pain, palpitation, shortness of breath, dizziness Review of systems Constitutional: no weight loss, chills, fever Ears, eyes, nose, mouth and throat: no nasal congestion, no nasal discharge, no sinus pressure, no vision change, no red eye. Neck: No neck pain or rigidity. Cardiovascular: no palpitations, chest pain Respiratory: no cough, shortness of breath Gastrointestinal: no hematochezia, abdominal pain Genitourinary : no frequency , no hematuria Musculoskeletal: no joint swelling or muscle ache Integumentary: no rash, no pruritis Neurological: no parathesias, no focal weakness Endocrine: no cold or heat intolerance, no polyuria or polydipsia Hematologic/Lymphatic: no easy bruising, no easy bleeding, no gland swelling Allergic/Immunologic: no urticaria, no angioedema. PAST MEDICAL HISTORY:hypertension, diabetes, coronary artery disease, hyperl ipidemia, CHF PAST SURGICAL HISTORY: Sinus, varicose vein surgery SOCIAL HISTORY: Denies alcohol, drugs, tobacco FAMILY HISTORY: Hypertension Medications and Allergies Allergies Allergy/AdvReac Type Severity Reaction Status Date / Time No Known Allergies Allergy Unverified 11/19/13 10:42 Home Medications Medication Instructions Recorded Confirmed Last Taken Type Atenolol [Tenormin] 50 mg PO BID 03/18/18 08/30/18 04/24/18 07:00 History AtorvaSTATin [Lipitor] 40 mg PO DAILY 03/18/18 08/30/18 04/23/18 History Escitalopram [Lexapro] 10 mg PO DAILY 03/18/18 08/30/18 04/23/18 History Metformin HCl [Glucophage] 500 mg PO BID 03/18/18 08/30/18 04/23/18 History Tamsulosin HCl [Flomax] 0.4 mg PO BID 03/18/18 08/30/18 04/23/18 History Furosemide [Lasix] 40 mg PO DAILY #60 tablet 03/21/18 08/30/1804/24/18 11:00 Rx [place]-3S/Dha/Epa/Fish Oil [Fish 1 each PO DAILY 04/24/18 08/30/18 04/23/18 History Oil 1,200 mg Softgel] Aspirin [Aspirin BABY CHEW TAB] 81 mg PO QDAY tab.chew 04/25/18 08/30/18 Unknown Rx Escitalopram [Lexapro] 10 mg PO QDAY tablet 04/25/18 08/30/18 Unknown Rx Losartan [Cozaar] 100 mg PO QDAY tablet 04/25/18 08/30/18 Unknown Rx Ticagrelor [Brilinta] 90 mg PO BID #60 tablet 04/25/18 08/30/18 Unknown Rx Amoxicillin/K Clav Tab [Augmentin 1 tab PO Q12HR #10 tab 08/19/18 08/30/18 Unknown Rx 875 mg] Carvedilol [Coreg] 3.125 mg PO BID #60 tablet 08/19/18 08/30/18 Unknown Rx Levothyroxine [Synthroid] 25 mcg PO DAILY@0600 #30 tablet 08/19/18 08/30/18 Unknown Rx Exam - Physical Exam Narrative exam: General Apperance: The patient lying in bed, breathing comfortable HEENT: Normocephalic, atraumatic. Pupils equally round and reactive to light, EOMI, no sclericterus or JVD or thyromegaly or nodule. , no carotid bruit, mucous membranes moist, no exudate or erythema Heart: S1-S2, regular is rhythm Lungs: Clear to auscultation bilaterally, breathing comfortable Abdomen: Positive bowel sounds, soft, nontender, nondistended, no organomegaly Extremities: No edema cyanosis clubbing Skin: no rash, nodule, warm and dry Neuro: cranial nerves 2-12 intact, speech is fluent, motor/sensory intact - Constitutional Vitals: Temp Pulse Resp BP Pulse Ox 98.3 F 76 16 124/75 100 08/30/18 20:00 08/30/18 21:46 08/30/18 19:06 08/30/18 21:30 08/30/18 21:30 Results - Labs CBC & Chem 7: 08/31/18 04:15 08/30/18 16:29 Labs: Abnormal lab results 08/30/18 08/30/18 08/30/18 Range/Units 16:29 16:29 16:29 Hgb 10.9 L (11.8-15.2) gm/dl Hct 33.0 L (35.5-45.6) % RDW 16.3 H (13.2-15.2) % PT 16.2 H (12.2-14.9) Sec. INR 1.26 H (0.87-1.13) BUN 24 H (9-20) mg/dL Glucose 110 H (75-100) mg/dL NT-Pro-B Natriuret Pep 3304 H (0-900) pg/mL TSH (0.270-4.200) mlU/mL 08/30/18 Range/Units 16:29 Hgb (11.8-15.2) gm/dl Hct (35.5-45.6) % RDW (13.2-15.2) % PT (12.2-14.9) Sec. INR (0.87-1.13) BUN (9-20) mg/dL Glucose (75-100) mg/dL NT-Pro-B Natriuret Pep (0-900) pg/mL TSH 7.920 H (0.270-4.200) mlU/mL - Imaging and Cardiology Chest x-ray: report reviewed CT scan - abdomen: report reviewed CT Scan - head: report reviewed CT scan - pelvis: report reviewed Assessment and Plan Hip pelvis, ribs x-ray reviewed Assessment Frequent falls Hypertension Diabetes Coronary artery disease CHF Hyperlipidemia Plan Monitor for arrhythmia, consult neurology DVT prophylaxis
[2018-08-31 05:26] LABS: Basophils % (Auto) 0.8 % (0.0-1.8); Eosinophils # (Auto) 0.2 K/mm3 (0.0-0.4); Eosinophils % (Auto) 2.9 % (0.0-4.3); Hemoglobin 10.2 gm/dl (11.8-15.2); Lymphocytes # (Auto) 1.2 K/mm3 (1.2-5.4); Lymphocytes % (Auto) 20.2 % (13.4-35.0); Mean Corpuscular HGB Conc 33 % (32-34); Mean Corpuscular Volume 89 fl (84-94); Monocytes # (Auto) 0.9 K/mm3 (0.0-0.8); Monocytes % (Auto) 14.8 % (0.0-7.3); Platelet Count 170 K/mm3 (140-440); Red Cell Distribution Width 16.1 % (13.2-15.2)
[2018-08-31 05:42] LABS: BUN/Creatinine Ratio 33; Blood Urea Nitrogen 20 mg/dL (9-20); Calcium 8.8 mg/dL (8.4-10.2); Hemolysis Index 2
[2018-08-31] MEDS: HumaLOG SUB-Q SCH ×4 (10:21→22:01)
--- NOTE | 2018-08-31 15:29 | Consultation ---
History of Present Illness Consult date: 08/31/18 Requesting physician: DAVE ERVIN Reason for Consult: frequent falls History of present illness: 73-year-old man history of hypertension, diabetes, coronary artery disease, hyperlipidemia, CHF comes emergency room because its legs are weak and he's gotten to be off balance especially when leaning forward or sideways, usually sustaining a fall. He has been having frequent falls. No chest pain, palpitation, shortness of breath, dizziness He denies any vertigo or warning that he is about to fall. He just goes down. This began in after being diagnosed with hypothyroidism . He is now on replacement with an elevated T4. CT brain is unremarkable. Xray of hips reveal mild arthritis. Because of a pacemaker, he cannot have an MRI brain. Past History Past Medical History: arrhythmia, CAD, diabetes, heart failure, hyperlipidemia, hypothyroidism Social history: , lives with family. denies: smoking, alcohol abuse Family history: hypertension Medications and Allergies Allergies Allergy/AdvReac Type Severity Reaction Status Date / Time No Known Allergies Allergy Unverified 11/19/13 10:42 Home Medications Medication Instructions Recorded Confirmed Last Taken Type Atenolol [Tenormin] 50 mg PO BID 03/18/18 08/30/18 04/24/18 07:00 History AtorvaSTATin [Lipitor] 40 mg PO DAILY 03/18/18 08/30/18 04/23/18 History Escitalopram [Lexapro] 10 mg PO DAILY 03/18/18 08/30/18 04/23/18 History Metformin HCl [Glucophage] 500 mg PO BID 03/18/18 08/30/18 04/23/18 History Tamsulosin HCl [Flomax] 0.4 mg PO BID 03/18/18 08/30/18 04/23/18 History Furosemide [Lasix] 40 mg PO DAILY #60 tablet 03/21/18 08/30/18 04/24/18 11:00 Rx [place]-3S/Dha/Epa/Fish Oil [Fish 1 each PO DAILY 04/24/18 08/30/18 04/23/18 History Oil 1,200 mg Softgel] Aspirin [Aspirin BABY CHEW TAB] 81 mg PO QDAY tab.chew 04/25/18 08/30/18 Un known Rx Escitalopram [Lexapro] 10 mg PO QDAY tablet 04/25/18 08/30/18 Unknown Rx Losartan [Cozaar] 100 mg PO QDAY tablet 04/25/18 08/30/18 Unknown Rx Ticagrelor [Brilinta] 90 mg PO BID #60 tablet 04/25/18 08/30/18 Unknown Rx Amoxicillin/K Clav Tab [Augmentin 1 tab PO Q12HR #10 tab 08/19/18 08/30/18 Unknown Rx 875 mg] Carvedilol [Coreg] 3.125 mg PO BID #60 tablet 08/19/18 08/30/18 Unknown Rx Levothyroxine [Synthroid] 25 mcg PO DAILY@0600 #30 tablet 08/19/18 08/30/18 Unknown Rx Active Meds: Active Medications Acetaminophen (Tylenol) 650 mg PO Q4H PRN PRN Reason: Pain MILD(1-3)/Fever >100.5/FERNANDEZ Dextrose (D50w (25gm) Syringe) 50 ml IV PRN PRN PRN Reason: Hypoglycemia Insulin Human Lispro (Humalog) 0 unit SUB-Q ACHS GHASSAN; Protocol Last Admin: 08/31/18 10:21 Dose: Not Given Documented by: Ondansetron HCl (Zofran) 4 mg IV Q8H PRN PRN Reason: Nausea And Vomiting Sodium Chloride (Sodium Chloride Flush Syringe 10 Ml) 10 ml IV BID GHASSAN Sodium Chloride (Sodium Chloride Flush Syringe 10 Ml) 10 ml IV PRN PRN PRN Reason: LINE FLUSH Review of Systems Musculoskeletal: low back pain, muscle weakness, limitation of motion, gait dysfunction, frequent falls Physical Examination - Vital Signs Vital Signs: Vital Signs Pulse Resp BP Pulse Ox 41 L 16 102/58 97 08/30/18 15:56 08/30/18 15:56 08/30/18 15:56 08/30/18 15:56 - Physical Exam Narrative exam: Neurological exam - speech fluent, relates his history well. 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 foot dorsiflexors -5/5 Reflexes - +2 RLE, +1 LLE Sensory - intact Cerebellar - intact Gait - somewhat magnetic. small shuffling steps. Results - Laboratory Findings CBC and BMP: 08/31/18 04:15 08/31/18 04:15 Abnormal Lab Findings: Abnormal Labs 08/30/18 08/30/18 08/30/18 16:29 16:29 16:29 RBC Hgb 10.9 L Hct 33.0 L RDW 16.3 H [place] % (Auto) [place] # PT 16.2 H INR 1.26 H Carbon Dioxide BUN 24 H Creatinine Glucose 110 H POC Glucose NT-Pro-B Natriuret Pep 3304 H TSH 08/30/18 08/31/18 08/31/18 16:29 04:15 04:15 RBC 3.50 L Hgb 10.2 L Hct 31.0 L RDW 16.1 H [place] % (Auto) 14.8 H [place] # 0.9 H PT INR Carbon Dioxide 31 H BUN Creatinine 0.6 L Glucose 115 H POC Glucose NT-Pro-B Natriuret Pep TSH 7.920 H 08/31/18 11:41 RBC Hgb Hct RDW [place] % (Auto) [place] # PT INR Carbon Dioxide BUN Creatinine Glucose POC Glucose 134 H NT-Pro-B Natriuret Pep TSH Assessment and Plan 73-year-old man history of hypertension, diabetes, coronary artery disease, h yperlipidemia, CHF comes emergency room because its legs are weak and he's gotten to be off balance especially when leaning forward or sideways, usually sustaining a fall. Exam revels some weakness in the prox. lower extremities Consider spinal stenosis. CT brain is unremarkable Plan - will CT cervical, thoracic, lumbar spine to R/O stenosis vs. rdiculopathy.
--- NOTE | 2018-08-31 15:53 | Progress Note ---
Assessment and Plan Assessment and plan: Frequent falls. patient admited to Telemetry Neurology evalPhysical therapy eval Hypertension Monitor BP Diabetes mellitus type 2 Fingerstick Qac and hs CAD Stable No chest pain Chronic CHF Full code status History Interval history: Frequent falls Hospitalist Physical - Physical exam Narrative exam: GEN: Not in acute distress, lying in bed HEENT: Normocephalic, atraumatic, Neck: supple, No JVD Lungs: Clear to auscultation, no wheeze Heart:S1 and S2 regular, no murmurs, rubs or gallop, Abd:soft, non tender, non distended, normal bowel sounds Ext: No edema, no clubbing or cyanosis Neuro: AAO x 3, No focal signs Skin:No rash Psych:Normal mood - Constitutional Vitals: Temp Pulse Resp BP Pulse Ox 98.0 F 74 20 124/76 95 08/31/18 15:14 08/31/18 15:14 08/31/18 15:14 08/31/18 15:14 08/31/18 15:14 Results - Labs CBC & Chem 7: 08/31/18 04:15 08/31/18 04:15 Labs: Laboratory Last Values WBC 6.0 K/mm3 (4.5-11.0) 08/31/18 04:15 RBC 3.50 M/mm3 (3.65-5.03) L 08/31/18 04:15 Hgb 10.2 gm/dl (11.8-15.2) L 08/31/18 04:15 Hct 31.0 % (35.5-45.6) L 08/31/18 04:15 MCV 89 fl (84-94) 08/31/18 04:15 MCH 29 pg (28-32) 08/31/18 04:15 MCHC 33 % (32-34) 08/31/18 04:15 RDW 16.1 % (13.2-15.2) H 08/31/18 04:15 Plt Count 170 K/mm3 (140-440) 08/31/18 04:15 Lymph % (Auto) 20.2 % (13.4-35.0) 08/31/18 04:15 [place] % (Auto) 14.8 % (0.0-7.3) H 08/31/18 04:15 Eos % (Auto) 2.9 % (0.0-4.3) 08/31/18 04:15 Baso % (Auto) 0.8 % (0.0-1.8) 08/31/18 04:15 Lymph # 1.2 K/mm3 (1.2-5.4) 08/31/18 04:15 [place] # 0.9 K/mm3 (0.0-0.8) H 08/31/18 04:15 Eos # 0.2 K/mm3 (0.0-0.4) 08/31/18 04:15 Baso # 0.0 K/mm3 (0.0-0.1) 08/31/18 04:15 Seg Neutrophils % 61.3 % (40.0-70.0) 08/31/18 04:15 Seg Neutrophils # 3.7 K/mm3 (1.8-7.7) 08/31/18 04:15 PT 16.2 Sec. (12.2-14.9) H 08/30/18 16:29 INR 1.26 (0.87-1.13) H 08/30/18 16:29 APTT 28.6 Sec. (24.2-36.6) 08/30/18 16:29 Sodium 143 mmol/L (137-145) 08/31/18 04:15 Potassium 3.9 mmol/L (3.6-5.0) 08/31/18 04:15 Chloride 101.7 mmol/L (98-107) 08/31/18 04:15 Carbon Dioxide 31 mmol/L (22-30) H 08/31/18 04:15 Anion Gap 14 mmol/L 08/31/18 04:15 BUN 20 mg/dL (9-20) 08/31/18 04:15 Creatinine 0.6 mg/dL (0.8-1.5) L 08/31/18 04:15 Estimated GFR > 60 ml/min 08/31/18 04:15 BUN/Creatinine Ratio 33 % 08/31/18 04:15 Glucose 115 mg/dL (75-100) H 08/31/18 04:15 POC Glucose 134 (70-105) H 08/31/18 11:41 Calcium 8.8 mg/dL (8.4-10.2) 08/31/18 04:15 Magnesium 2.10 mg/dL (1.7-2.3) 08/30/18 16:29 Total Creatine Kinase 151 units/L (55-170) 08/30/18 16:29 CK-MB (CK-2) 3.6 ng/mL (0.0-4.0) 08/30/18 16:29 CK-MB (CK-2) Rel Index 2.3 (0-4) 08/30/18 16:29 Troponin T 0.016 ng/mL (0.00-0.029) 08/30/18 16:29 NT-Pro-B Natriuret Pep 3304 pg/mL (0-900) H 08/30/18 16:29 TSH 7.920 mlU/mL (0.270-4.200) H 08/30/18 16:29 Free T4 1.11 ng/dL (0.76-1.46) 08/30/18 16:29 Blood Type A POSITIVE 08/30/18 16:35 Antibody Screen Negative 08/30/18 16:35
[2018-08-31] MEDS ORDERED: EPA PO SCH (16:00)
[2018-08-31] MEDS ORDERED: OMEGA PO SCH (16:00)
[2018-08-31] MEDS: AUGMENTIN 875 MG PO SCH ×2 (16:00→21:57)
[2018-08-31] MEDS ORDERED: DHA PO SCH (16:00)
[2018-08-31] MEDS ORDERED: FISH OIL PO SCH (16:00)
--- NOTE | 2018-08-31 16:56 | Cat Scan Report ---
FINAL REPORT EXAM: CT CERVICAL SPINE WO CON HISTORY: frequent falls, weakness and low back pain TECHNIQUE: Axial helical imaging through the cervical spine with sagittal and coronal reformatted im ages obtained. Comparison: None FINDINGS: There is dextrocurvature of the cervical spine. There is mild anterolisthesis of C2 on C3, C4 on C5 and C5 on C6 secondary to degenerative facet sheets ge at these levels. There is multiple level degenerative facet change. There is no evidence of significant bony canal stenosis. Visualization detail of the contents of the cervical canal is limited by artifact. There is multiple level mild foraminal stenosis secondary to spondylitic change. There is no evidence of fracture or posttraumatic subluxation. The paraspinous soft tissues are unremarkable. There appear to be bilateral pleural effusions that are partially visualized. C2-C3: Mild anterolisthesis, degenerative facet change. C3-C4: Degenerative facet change. C4-C5: Mild anterolisthesis, degenerative facet change. C5-C6: Mild anterolisthesis, degenerative facet change. C6-C7: Degenerative facet change. C7-T1: Degenerative facet change. IMPRESSION: 1. Spondylitic change lumbar spine with no evidence of significant bony canal stenosis.
--- NOTE | 2018-08-31 17:06 | Cat Scan Report ---
FINAL REPORT EXAM: CT THORACIC SPINE WO CON HISTORY: frequent falls, weakness and low back pain TECHNIQUE: Axial helical imaging through the thoracic spine with sagittal and coronal reformatted im ages obtained. Comparison: CT angiogram chest dated August 18, 2018 FINDINGS: There is mild dextrocurvature of the thoracic spine. The vertebral heights and disc spaces are maintained. There is degenerative facet change on the right at the T3-T4 level. There appears to be a nonacute fr acture of the superior articulating facet of T4 on the right. There is no evidence of acute fracture. There is degenerative change of the costovertebral articulations at multiple levels. There is no evidence of significant bony canal stenosis. The paraspinous soft tissues are notable for asymmetric atrophy of the right paraspinous musculature in the lower thoracic spine. There are bilateral pleural effusions that are incompletely imaged. There is increased density in the right renal pelvis that is partially imaged and may represent renal stone. IMPRESSION: 1. Appearance of nonacute fracture of the superior articulating facet of T4 on the right with degener ative facet change at the T3-T4 level on the right. 2. No evidence of acute fracture and no evidence of subluxation. 3. Degenerative change costovertebral articulations at multiple levels. 4. Dextrocurvature thoracic spine.
[2018-08-31] MEDS: COREG PO SCH ×2 (17:16→21:58)
[2018-08-31] MEDS: BRILINTA PO SCH ×2 (17:16→21:57)
[2018-08-31] MEDS: BABY ASPIRIN PO SCH (17:16)
[2018-08-31] MEDS: GLUCOPHAGE PO SCH ×2 (17:17→21:58)
[2018-08-31] MEDS: FLOMAX PO SCH ×2 (17:17→21:57)
[2018-08-31] MEDS: COZAAR PO SCH (17:17)
[2018-08-31] MEDS: LEXAPRO PO SCH (17:17)
[2018-08-31] MEDS: SODIUM CHLORIDE FLUSH SYRINGE 10 ML IV SCH ×2 (17:18→22:01)
--- NOTE | 2018-08-31 17:54 | Cat Scan Report ---
FINAL REPORT EXAM: CT LUMBAR SPINE WO CON HISTORY: frequent falls, weakness and low back pain TECHNIQUE: Axial helical imaging through the lumbar spine with sagittal and coronal reformatted imag es obtained. Comparison: CT abdomen and pelvis dated August 30, 2018 FINDINGS: Bony alignment is normal. There are small areas of sclerosis in the L1 and L4 vertebra and a larger area sclerosis in the right ischium. In the proper clinical setting sclerotic bony metastases would need to be considered. The vertebral heights are maintained. There is loss of height of the L5-S1 disc posteriorly with associated degenerative endplate change. Visualization detail of the contents of the lumbar canal is limited by artifact. There is multiple level degenerative facet change. There to be moderate canal stenosis in the lower lumbar spine secondary to spondylitic change. There is no evidence of fracture or subluxation. The paraspinous soft tissues are unremarkable. T12-L1: Unremarkable. L1-L2: Degenerative facet change. L2-L3: Degenerative facet change. L3-L4: Mild canal stenosis secondary to disc bulge, hypertrophy of the ligamentum flavum and degenera tive facet change. L4-L5: Xpaz-xk-nafzplom canal stenosis secondary to disc bulge, hypertrophy of the ligamentum flavum and degenerative facet change. L5-S1: Moderate canal stenosis secondary to disc bulge, hypertrophy of ligamentum flavum and degenera tive facet change. IMPRESSION: 1. No evidence of fracture or subluxation. 2. 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 3. Areas of sclerotic change in the L1 and L4 vertebra and in the right ischium that in the proper cl inical setting sclerotic bony metastases would need to be considered.
[2018-09-01] MEDS: SYNTHROID PO SCH (06:15)
[2018-09-01] MEDS: HumaLOG SUB-Q SCH ×3 (08:18→21:32)
--- NOTE | 2018-09-01 08:44 | Progress Note ---
Assessment and Plan Assessment and plan: Frequent falls. patient admited to Telemetry Neurology eval. Physical therapy eval Osteoarthritic changes on CT spine Hypertension Monitor BP Diabetes mellitus type 2 Fingerstick Qac and hs CAD Stable No chest pain Chronic CHF Full code status History Interval history: Frequent falls, Body aches from falling Hospitalist Physical - Physical exam Narrative exam: GEN: Not in acute distress, lying in bed HEENT: Normocephalic, atraumatic, Neck: supple, No JVD Lungs: Clear to auscultation, no wheeze Heart:S1 and S2 regular, no murmurs, rubs or gallop, Abd:soft, non tender, non distended, normal bowel sounds Ext: No edema, no clubbing or cyanosis Neuro: AAO x 3, No focal signs Skin: Multiple large bruises on trunk Psych:Normal mood - Constitutional Vitals: Temp Pulse Resp BP Pulse Ox 97.6 F 108 H 16 99/69 98 09/01/18 07:30 09/01/18 07:30 09/01/18 07:30 09/01/18 07:30 09/01/18 07:30 Results - Labs CBC & Chem 7: 08/31/18 04:15 08/31/18 04:15 Labs: Laboratory Last Values WBC 6.0 K/mm3 (4.5-11.0) 08/31/18 04:15 RBC 3.50 M/mm3 (3.65-5.03) L 08/31/18 04:15 Hgb 10.2 gm/dl (11.8-15.2) L 08/31/18 04:15 Hct 31.0 % (35.5-45.6) L 08/31/18 04:15 MCV 89 fl (84-94) 08/31/18 04:15 MCH 29 pg (28-32) 08/31/18 04:15 MCHC 33 % (32-34) 08/31/18 04:15 RDW 16.1 % (13.2-15.2) H 08/31/18 04:15 Plt Count 170 K/mm3 (140-440) 08/31/18 04:15 Lymph % (Auto) 20.2 % (13.4-35.0) 08/31/18 04:15 [place] % (Auto) 14.8 % (0.0-7.3) H 08/31/18 04:15 Eos % (Auto) 2.9 % (0.0-4.3) 08/31/18 04:15 Baso % (Auto) 0.8 % (0.0-1.8) 08/31/18 04:15 Lymph # 1.2 K/mm3 (1.2-5.4) 08/31/18 04:15 [place] # 0.9 K/mm3 (0.0-0.8) H 08/31/18 04:15 Eos # 0.2 K/mm3 (0.0-0.4) 08/31/18 04:15 Baso # 0.0 K/mm3 (0.0-0.1) 08/31/18 04:15 Seg Neutrophils % 61.3 % (40.0-70.0) 08/31/18 04:15 Seg Neutrophils # 3.7 K/mm3 (1.8-7.7) 08/31/18 04:15 PT 16.2 Sec. (12.2-14.9) H 08/30/18 16:29 INR 1.26 (0.87-1.13) H 08/30/18 16:29 APTT 28.6 Sec. (24.2-36.6) 08/30/18 16:29 Sodium 143 mmol/L (137-145) 08/31/18 04:15 Potassium 3.9 mmol/L (3.6-5.0) 08/31/18 04:15 Chloride 101.7 mmol/L (98-107) 08/31/18 04:15 Carbon Dioxide 31 mmol/L (22-30) H 08/31/18 04:15 Anion Gap 14 mmol/L 08/31/18 04:15 BUN 20 mg/dL (9-20) 08/31/18 04:15 Creatinine 0.6 mg/dL (0.8-1.5) L 08/31/18 04:15 Estimated GFR > 60 ml/min 08/31/18 04:15 BUN/Creatinine Ratio 33 % 08/31/18 04:15 Glucose 115 mg/dL (75-100) H 08/31/18 04:15 POC Glucose 90 (70-105) 09/01/18 06:06 Calcium 8.8 mg/dL (8.4-10.2) 08/31/18 04:15 Magnesium 2.10 mg/dL (1.7-2.3) 08/30/18 16:29 Total Creatine Kinase 151 units/L (55-170) 08/30/18 16:29 CK-MB (CK-2) 3.6 ng/mL (0.0-4.0) 08/30/18 16:29 CK-MB (CK-2) Rel Index 2.3 (0-4) 08/30/18 16:29 Troponin T 0.016 ng/mL (0.00-0.029) 08/30/18 16:29 NT-Pro-B Natriuret Pep 3304 pg/mL (0-900) H 08/30/18 16:29 TSH 7.920 mlU/mL (0.270-4.200) H 08/30/18 16:29 Free T4 1.11 ng/dL (0.76-1.46) 08/30/18 16:29 Blood Type A POSITIVE 08/30/18 16:35 Antibody Screen Negative 08/30/18 16:35
[2018-09-01] MEDS: HEPARIN SUB-Q SCH ×2 (11:25→21:31)
[2018-09-01] MEDS: ULTRAM PO PRN ×2 (11:28→21:31)
[2018-09-01] MEDS: FLOMAX PO SCH ×2 (11:29→21:30)
[2018-09-01] MEDS: BRILINTA PO SCH ×2 (11:29→21:30)
[2018-09-01] MEDS: AUGMENTIN 875 MG PO SCH ×2 (11:29→21:30)
[2018-09-01] MEDS: COREG PO SCH ×2 (11:29→21:30)
[2018-09-01] MEDS: GLUCOPHAGE PO SCH ×2 (11:30→21:30)
[2018-09-01] MEDS: BABY ASPIRIN PO SCH (11:30)
[2018-09-01] MEDS: FISH OIL PO SCH (11:30)
[2018-09-01] MEDS: LEXAPRO PO SCH (11:30)
[2018-09-01] MEDS: COZAAR PO SCH (13:16)
[2018-09-01] MEDS: SODIUM CHLORIDE FLUSH SYRINGE 10 ML IV SCH (21:29)
[2018-09-02] MEDS: SYNTHROID PO SCH (05:29)
[2018-09-02] MEDS: ULTRAM PO PRN ×3 (05:29→20:30)
[2018-09-02] MEDS: HEPARIN SUB-Q SCH ×4 (05:33→21:48)
[2018-09-02] MEDS: HumaLOG SUB-Q SCH ×4 (08:46→21:26)
--- NOTE | 2018-09-02 10:56 | Progress Note ---
Assessment and Plan Assessment and plan: Frequent falls. Patient admited to Telemetry Neurology eval. Physical therapy eval Osteoarthritic changes on CT spine Hypertension Monitor BP Diabetes mellitus type 2 Fingerstick Qac and hs CAD Stable No chest pain Chronic CHF Full code status History Interval history: Frequent falls, Body aches from falling Hospitalist Physical - Physical exam Narrative exam: GEN: Not in acute distress, lying in bed HEENT: Normocephalic, atraumatic, Neck: supple, No JVD Lungs: Clear to auscultation, no wheeze Heart:S1 and S2 regular, no murmurs, rubs or gallop, Abd:soft, non tender, non distended, normal bowel sounds Ext: No edema, no clubbing or cyanosis Neuro: AAO x 3, No focal signs Skin: Multiple large bruises on trunk Psych:Normal mood - Constitutional Vitals: Temp Pulse Resp BP Pulse Ox 97.4 F L 109 H 16 118/82 98 09/02/18 07:20 09/02/18 07:20 09/02/18 07:20 09/02/18 07:20 09/02/18 07:20 Results - Labs CBC & Chem 7: 08/31/18 04:15 08/31/18 04:15 Labs: Laboratory Last Values WBC 6.0 K/mm3 (4.5-11.0) 08/31/18 04:15 RBC 3.50 M/mm3 (3.65-5.03) L 08/31/18 04:15 Hgb 10.2 gm/dl (11.8-15.2) L 08/31/18 04:15 Hct 31.0 % (35.5-45.6) L 08/31/18 04:15 MCV 89 fl (84-94) 08/31/18 04:15 MCH 29 pg (28-32) 08/31/18 04:15 MCHC 33 % (32-34) 08/31/18 04:15 RDW 16.1 % (13.2-15.2) H 08/31/18 04:15 Plt Count 170 K/mm3 (140-440) 08/31/18 04:15 Lymph % (Auto) 20.2 % (13.4-35.0) 08/31/18 04:15 [place] % (Auto) 14.8 % (0.0-7.3) H 08/31/18 04:15 Eos % (Auto) 2.9 % (0.0-4.3) 08/31/18 04:15 Baso % (Auto) 0.8 % (0.0-1.8) 08/31/18 04:15 Lymph # 1.2 K/mm3 (1.2-5.4) 08/31/18 04:15 [place] # 0.9 K/mm3 (0.0-0.8) H 08/31/18 04:15 Eos # 0.2 K/mm3 (0.0-0.4) 08/31/18 04:15 Baso # 0.0 K/mm3 (0.0-0.1) 08/31/18 04:15 Seg Neutrophils % 61.3 % (40.0-70.0) 08/31/18 04:15 Seg Neutrophils # 3.7 K/mm3 (1.8-7.7) 08/31/18 04:15 PT 16.2 Sec. (12.2-14.9) H 08/30/18 16:29 INR 1.26 (0.87-1.13) H 08/30/18 16:29 APTT 28.6 Sec. (24.2-36.6) 08/30/18 16:29 Sodium 143 mmol/L (137-145) 08/31/18 04:15 Potassium 3.9 mmol/L (3.6-5.0) 08/31/18 04:15 Chloride 101.7 mmol/L (98-107) 08/31/18 04:15 Carbon Dioxide 31 mmol/L (22-30) H 08/31/18 04:15 Anion Gap 14 mmol/L 08/31/18 04:15 BUN 20 mg/dL (9-20) 08/31/18 04:15 Creatinine 0.6 mg/dL (0.8-1.5) L 08/31/18 04:15 Estimated GFR > 60 ml/min 08/31/18 04:15 BUN/Creatinine Ratio 33 % 08/31/18 04:15 Glucose 115 mg/dL (75-100) H 08/31/18 04:15 POC Glucose 87 (70-105) 09/02/18 05:57 Calcium 8.8 mg/dL (8.4-10.2) 08/31/18 04:15 Magnesium 2.10 mg/dL (1.7-2.3) 08/30/18 16:29 Total Creatine Kinase 151 units/L (55-170) 08/30/18 16:29 CK-MB (CK-2) 3.6 ng/mL (0.0-4.0) 08/30/18 16:29 CK-MB (CK-2) Rel Index 2.3 (0-4) 08/30/18 16:29 Troponin T 0.016 ng/mL (0.00-0.029) 08/30/18 16:29 NT-Pro-B Natriuret Pep 3304 pg/mL (0-900) H 08/30/18 16:29 TSH 7.920 mlU/mL (0.270-4.200) H 08/30/18 16:29 Free T4 1.11 ng/dL (0.76-1.46) 08/30/18 16:29 Blood Type A POSITIVE 08/30/18 16:35 Antibody Screen Negative 08/30/18 16:35
[2018-09-02] MEDS: SODIUM CHLORIDE FLUSH SYRINGE 10 ML IV SCH ×3 (12:26→22:30)
[2018-09-02] MEDS: GLUCOPHAGE PO SCH ×2 (12:26→21:44)
[2018-09-02] MEDS: FISH OIL PO SCH (12:26)
[2018-09-02] MEDS: AUGMENTIN 875 MG PO SCH ×2 (12:27→21:44)
[2018-09-02] MEDS: LEXAPRO PO SCH (12:27)
[2018-09-02] MEDS: BABY ASPIRIN PO SCH (12:27)
[2018-09-02] MEDS: BRILINTA PO SCH ×2 (12:31→21:45)
[2018-09-02] MEDS: COREG PO SCH ×2 (12:32→21:24)
[2018-09-02] MEDS: COZAAR PO SCH (12:33)
[2018-09-02] MEDS: FLOMAX PO SCH ×2 (15:48→21:45)
[2018-09-03] MEDS: SYNTHROID PO SCH (05:10)
[2018-09-03] MEDS: HEPARIN SUB-Q SCH ×3 (05:11→23:46)
[2018-09-03] MEDS: ULTRAM PO PRN (05:21)
[2018-09-03] MEDS: HumaLOG SUB-Q SCH ×3 (09:50→18:31)
[2018-09-03] MEDS: LEXAPRO PO SCH (09:51)
[2018-09-03] MEDS: AUGMENTIN 875 MG PO SCH ×2 (09:51→23:44)
[2018-09-03] MEDS: GLUCOPHAGE PO SCH ×2 (09:51→23:45)
[2018-09-03] MEDS: COZAAR PO SCH (09:51)
[2018-09-03] MEDS: BABY ASPIRIN PO SCH (09:52)
[2018-09-03] MEDS: FLOMAX PO SCH ×2 (09:52→23:45)
[2018-09-03] MEDS: COREG PO SCH ×2 (09:52→23:45)
[2018-09-03] MEDS: BRILINTA PO SCH ×2 (09:52→23:44)
[2018-09-03] MEDS: FISH OIL PO SCH (09:52)
--- NOTE | 2018-09-03 13:59 | Progress Note ---
Assessment and Plan Assessment and plan: Patient is 73yo with hypertension, diabetes, coronary artery disease. He presents because of frequent falls. he denied loss of consciousness. He was admitted, evaluated by neurology. CT of the cervical, thoracic and lumbar spines were done revealedosteoarthritic changes. To be re-evaluated by Neuro and PT. Disposition pending Neuro and PT re-eval. Frequent falls. Patient admited to Telemetry Neurology eval. Physical therapy eval Osteoarthritic changes on CT spine Hypertension Monitor BP Diabetes mellitus type 2 Fingerstick Qac and hs CAD Stable No chest pain Chronic CHF On Coreg, Cozaar Full code status History Interval history: Frequent falls, Body aches, bruises from falling Hospitalist Physical - Physical exam Narrative exam: GEN: Not in acute distress, lying in bed HEENT: Normocephalic, atraumatic, Neck: supple, No JVD Lungs: Clear to auscultation, no wheeze Heart:S1 and S2 regular, no murmurs, rubs or gallop, Abd:soft, non tender, non distended, normal bowel sounds Ext: No edema, no clubbing or cyanosis Neuro: AAO x 3, No focal signs Skin: Multiple large bruises on trunk Psych:Normal mood - Constitutional Vitals: Temp Pulse Resp BP Pulse Ox 97.8 F 101 H 20 111/72 97 09/03/18 07:35 09/03/18 09:51 09/03/18 07:35 09/03/18 09:51 09/03/18 10:00 Results - Labs CBC & Chem 7: 08/31/18 04:15 08/31/18 04:15 Labs: Laboratory Last Values WBC 6.0 K/mm3 (4.5-11.0) 08/31/18 04:15 RBC 3.50 M/mm3 (3.65-5.03) L 08/31/18 04:15 Hgb 10.2 gm/dl (11.8-15.2) L 08/31/18 04:15 Hct 31.0 % (35.5-45.6) L 08/31/18 04:15 MCV 89 fl (84-94) 08/31/18 04:15 MCH 29 pg (28-32) 08/31/18 04:15 MCHC 33 % (32-34) 08/31/18 04:15 RDW 16.1 % (13.2-15.2) H 08/31/18 04:15 Plt Count 170 K/mm3 (140-440) 08/31/18 04:15 Lymph % (Auto) 20.2 % (13.4-35.0) 08/31/18 04:15 [place] % (Auto) 14.8 % (0.0-7.3) H 08/31/18 04:15 Eos % (Auto) 2.9 % (0.0-4.3) 08/31/18 04:15 Baso % (Auto) 0.8 % (0.0-1.8) 08/31/18 04:15 Lymph # 1.2 K/mm3 (1.2-5.4) 08/31/18 04:15 [place] # 0.9 K/mm3 (0.0-0.8) H 08/31/18 04:15 Eos # 0.2 K/mm3 (0.0-0.4) 08/31/18 04:15 Baso # 0.0 K/mm3 (0.0-0.1) 08/31/18 04:15 Seg Neutrophils % 61.3 % (40.0-70.0) 08/31/18 04:15 Seg Neutrophils # 3.7 K/mm3 (1.8-7.7) 08/31/18 04:15 PT 16.2 Sec. (12.2-14.9) H 08/30/18 16:29 INR 1.26 (0.87-1.13) H 08/30/18 16:29 APTT 28.6 Sec. (24.2-36.6) 08/30/18 16:29 Sodium 143 mmol/L (137-145) 08/31/18 04:15 Potassium 3.9 mmol/L (3.6-5.0) 08/31/18 04:15 Chloride 101.7 mmol/L (98-107) 08/31/18 04:15 Carbon Dioxide 31 mmol/L (22-30) H 08/31/18 04:15 Anion Gap 14 mmol/L 08/31/18 04:15 BUN 20 mg/dL (9-20) 08/31/18 04:15 Creatinine 0.6 mg/dL (0.8-1.5) L 08/31/18 04:15 Estimated GFR > 60 ml/min 08/31/18 04:15 BUN/Creatinine Ratio 33 % 08/31/18 04:15 Glucose 115 mg/dL (75-100) H 08/31/18 04:15 POC Glucose 96 (70-105) 09/03/18 11:25 Calcium 8.8 mg/dL (8.4-10.2) 08/31/18 04:15 Magnesium 2.10 mg/dL (1.7-2.3) 08/30/18 16:29 Total Creatine Kinase 151 units/L (55-170) 08/30/18 16:29 CK-MB (CK-2) 3.6 ng/mL (0.0-4.0) 08/30/18 16:29 CK-MB (CK-2) Rel Index 2.3 (0-4) 08/30/18 16:29 Troponin T 0.016 ng/mL (0.00-0.029) 08/30/18 16:29 NT-Pro-B Natriuret Pep 3304 pg/mL (0-900) H 08/30/18 16:29 TSH 7.920 mlU/mL (0.270-4.200) H 08/30/18 16:29 Free T4 1.11 ng/dL (0.76-1.46) 08/30/18 16:29 Blood Type A POSITIVE 08/30/18 16:35 Antibody Screen Negative 08/30/18 16:35
[2018-09-03] MEDS: SODIUM CHLORIDE FLUSH SYRINGE 10 ML IV SCH (14:12)
--- NOTE | 2018-09-04 05:36 | Physician Progress Note ---
SUBJECTIVE: The patient was seen by Dr. Ella Cummings, neurologist last week. He has an episode of off balance, but without any loss of consciousness. I reviewed the history and he has been doing this for some time. Apparently, the patient just complained that his legs will become weak and then he will just fall. There was no loss of consciousness. So far, evaluation has not been helpful. He has multiple medical problems, hypertension, diabetes, hyperlipidemia, congestive heart failure. OBJECTIVE: GENERAL: The patient is comfortable. VITAL SIGNS: Stable right now. NEUROLOGIC: He is awake, alert. Speech sounded normal. Cranial nerve examination unremarkable. He moves both upper and lower extremities well. Sensory testing unremarkable. ASSESSMENT: The problem with this patient is not yet clear. He had frequent falls, this could be multifactorial. However, I am wondering whether he might have posterior circulation transient ischemic attack. The patient has a pacemaker and he is taking Brilinta and aspirin. Right now, I do not have any definitive diagnosis. Continue current medical care. I wonder whether pacemaker should be rechecked. JOB# [id number] ALIRIO/MORALES
[2018-09-04] MEDS: HEPARIN SUB-Q SCH (07:54)
[2018-09-04] MEDS: SYNTHROID PO SCH (07:54)
[2018-09-04] MEDS: HumaLOG SUB-Q SCH ×2 (08:26→11:46)
--- NOTE | 2018-09-04 09:05 | Discharge Summary ---
Providers - Providers Date of Admission: 08/30/18 20:28 Attending physician: LASHONDA CABEZAS MD 08/30/18 22:47 Consult to Physician [CONS] Routine Comment: Consulting Provider: OSEAS RAGLAND Physician Instructions: Reason For Exam: frequent fall 08/31/18 07:52 Physical Therapy Evaluation and Treat [CONS] Routine Comment: Reason For Exam: Frequent falls 09/03/18 11:32 Consult to Physician [CONS] Routine Comment: DEMAR Consulting Provider: FREDI BOWER Physician Instructions: CONSULT WAS CALLED TO [facility] Reason For Exam: Frequent falls, for follow up Primary care physician: CHECK INSPECTOR Hospitalization Reason for admission: = Syncope = Condition: Stable Hospital course: Patient is 73yo with hypertension, diabetes, coronary artery disease. He presents because of frequent falls. he denied loss of consciousness. He was admitted, evaluated by neurology. CT of the cervical, thoracic and lumbar spines were done revealedosteoarthritic changes. To be re-evaluated by Neuro and PT. Disposition pending Neuro and PT re-eval. Following evaluation by neurology and imaging studies show an sclerotic changes EKG did reveal fluctuations in heart rate as documented in the flowsheet consult was consulted as patient has a pacemaker and on discussion with them it appears the pacemaker was interrogated July 2018 and had a backup rate of 50 bpm and was noted at a time with normal function cut elevated evaluated the patient but did not make any further recommendation. Recommended the patient should follow-up with them in the office which has been discussed with the patient I did offer scheduled as an facility but the family wants more of home health. I did discuss keeping a diary of any [id number] events to be discussed with cardiology outpatient. Echo done 08/15/2018 showed EF 20%, mild MR, mild TR, pseudonormalization, severe pulm HTN with RVSP 62mmHg, mod to large pericardial effusion, no evidence of tamponade. Echo done 07/24/2018 showed EF 30-35%, mod circumferential pericardial effusion with no evidence of tamponade, RVSP 52mmHg. Pharmacologic MPI stress test done 03/2009 was negative for ischemia with grossly normal LV systolic function. C 03/2018 with PCI of mid 95% RCA, EF 40%. Frequent falls. Hypertension Diabetes mellitus type 2 CAD FREQUENT PVC s/p pacemaker Chronic systolic heart failure Cardiomyopathy chronic Pericardial effusion Disposition: DC/TX-06 HOME UNDER HOME [facility] Time spent for discharge: 35 mins Core Measure Documentation - Palliative Care Palliative Care/ Comfort Measures: Not Applicable - Core Measures Any of the following diagnoses?: none Exam - Physical Exam Narrative exam: G VITAL SIGNS: Reviewed. GENERAL: The patient appeared well nourished and normally developed. Vital signs as documented. HEAD: No signs of head trauma. EYES: Pupils are equal. Extraocular motions intact. EARS: Hearing grossly intact. MOUTH: Oropharynx is normal. NECK: No adenopathy, no JVD. CHEST: Chest with clear breath sounds bilaterally. No wheezes, rales, or rhonchi. CARDIAC: Regular rate and rhythm. S1 and S2, without murmurs, gallops, or rubs. VASCULAR: No Edema. Peripheral pulses normal and equal in all extremities. ABDOMEN: Soft, without detectable tenderness. No sign of distention. No rebound or guarding, and no masses palpated. Bowel Sounds normal. MUSCULOSKELETAL: Good range of motion of all major joints. Extremities without clubbing, cyanosis or edema. NEUROLOGIC EXAM: Alert and oriented x 3. No focal sensory or strength deficits. Speech normal. Follows commands. PSYCHIATRIC: Mood normal. SKIN: Multiple bruises in the bilateral truncal and groin area. - Constitutional Vitals: Temp Pulse Resp BP Pulse Ox 97.9 F 49 L 18 126/70 91 09/04/18 07:20 09/04/18 07:20 09/04/18 07:20 09/04/18 07:20 09/04/18 07:20 Plan Activity: advance as tolerated, fall precautions Diet: low fat, low cholesterol Special Instructions: record daily BP diary Follow up with: BRIANA THOMPSON MD [Primary Care Provider] - 3-5 Days ALANNAH SAMPSON MD [Staff Physician] - 7 Days
--- NOTE | 2018-09-04 09:28 | Consultation ---
History of Present Illness Consult date: 09/04/18 Requesting physician: LASHONDA CABEZAS Consult reason: arrhythmia History of present illness: The pt is a 73 YO male with a past medical history of CAD s/p PCI of RCA 03/2018, HTN, DM, SSS, PPM in situ, PVCs. He is followed in our office by Dr. Christianson. He presented for evaluation of frequent falls due to weakness and difficulty with balance. He denies any chest pain, SOB, palpitations, n/v, diaphoresis, dizziness or syncope. He was evaluated by neurology, CT brain unremarkable, CT of the cervical, thoracic and lumbar spines were done and showed osteoarthritic changes. Fluctuations in HR (from 40s - 120s) were documented on vital sign flowsheet and thus cardiology has been consulted for further evaluation. Review of telemetry shows NSR, intermittent pacing, with infrequent bouts of sinus tachycardia (HR 100s), no bradycardia or arrhythmias noted. Pt has PPM, last interrogation was 07/2018, backup rate of 50bpm and normal device function. Echo done 08/15/2018 showed EF 20%, mild MR, mild TR, pseudonormalization, severe pulm HTN with RVSP 62mmHg, mod to large pericardial effusion, no evidence of tamponade. Echo done 07/24/2018 showed EF 30-35%, mod circumferential pericardial effusion with no evidence of tamponade, RVSP 52mmHg. Pharmacologic MPI stress test done 03/2009 was negative for ischemia with grossly normal LV systolic function. [facility] 03/2018 with PCI of mid 95% RCA, EF 40%. Past History Past Medical History: arrhythmia, CAD, diabetes, heart failure, hyperlipidemia, hypothyroidism Social history: , lives with family. denies: smoking, alcohol abuse Family history: hypertension Medications and Allergies Allergies Allergy/AdvReac Type Severity Reaction Status Date / Time No Known Allergies Allergy Unverified 11/19/13 10:42 Home Medications Medication Instructions Recorded Confirmed Last Taken Type AtorvaSTATin [Lipitor] 40 mg PO DAILY 03/18/18 08/30/18 04/23/18 History Escitalopram [Lexapro] 10 mg PO DAILY 03/18/18 08/30/18 04/23/18 History Metformin HCl [Glucophage] 500 mg PO BID 03/18/18 08/30/18 04/23/18 History Tamsulosin HCl [Flomax] 0.4 mg PO BID 03/18/18 08/30/18 04/23/18 History Furosemide [Lasix] 40 mg PO DAILY #60 tablet 03/21/18 08/30/18 04/24/18 11:00 Rx [place]-3S/Dha/Epa/Fish Oil [Fish 1 each PO DAILY 04/24/18 08/30/18 04/23/18 History Oil 1,200 mg Softgel] Aspirin [Aspirin BABY CHEW TAB] 81 mg PO QDAY tab.chew 04/25/18 08/30/18 Unknown Rx Escitalopram [Lexapro] 10 mg PO QDAY tablet 04/25/18 08/30/18 Unknown Rx Losartan [Cozaar] 100 mg PO QDAY tablet 04/25/18 08/30/18 Unknown Rx Ticagrelor [Brilinta] 90 mg PO BID #60 tablet 04/25/18 08/30/18 Unknown Rx Amoxicillin/K Clav Tab [Augmentin 1 tab PO Q12HR #10 tab 08/19/18 08/30/18 Unknown Rx 875MG TAB] Carvedilol [Coreg] 3.125 mg PO BID #60 tablet 08/19/18 08/30/18 Unknown Rx Levothyroxine [Synthroid] 25 mcg PO DAILY@0600 #30 tablet 08/19/18 08/30/18 Unknown Rx Active Meds: Active Medications Acetaminophen (Tylenol) 650 mg PO Q4H PRN PRN Reason: Pain MILD(1-3)/Fever >100.5/FERNANDEZ Amoxicillin/Clavulanate Potassium (Augmentin 875 Mg) 1 each PO Q12HR [facility] Last Admin: 09/03/18 23:44 Dose: 1 each Documented by: Aspirin (Baby Aspirin) 81 mg PO QDAY [facility] Last Admin: 09/03/18 09:52 Dose: 81 mg Documented by: Atorvastatin Calcium (Lipitor) 40 mg PO DAILY [facility] Last Admin: 09/03/18 09:52 Dose: 40 mg Documented by: Carvedilol (Coreg) 3.125 mg PO BID [facility] Last Admin: 09/03/18 23:45 Dose: 3.125 mg Documented by: Dextrose (D50w (25gm) Syringe) 50 ml IV PRN PRN PRN Reason: Hypoglycemia Escitalopram Oxalate (Lexapro) 10 mg PO DAILY [facility] Last Admin: 09/03/18 09:51 Dose: 10 mg Documented by: Fish Oil (Fish Oil) 1,000 mg PO QDAY [facility] Last Admin: 09/03/18 09:52 Dose: 1,000 mg Documented by: Heparin Sodium (Porcine) (Heparin) 5,000 unit SUB-Q Q8HR [facility] Last Admin: 09/04/18 07:54 Dose: 5,000 unit Documented by: Insulin Human Lispro (Humalog) 0 unit SUB-Q ACHS [facility]; Protocol Last Admin: 09/04/18 08:26 Dose: Not Given Documented by: Levothyroxine Sodium (Synthroid) 25 mcg PO DAILY@0600 [facility] Last Admin: 09/04/18 07:54 Dose: 25 mcg Documented by: Losartan Potassium (Cozaar) 100 mg PO QDAY [facility] Last Admin: 09/03/18 09:51 Dose: 100 mg Documented by: Metformin HCl (Glucophage) 500 mg PO BID [facility] Last Admin: 09/03/18 23:45 Dose: 500 mg Documented by: Ondansetron HCl (Zofran) 4 mg IV Q8H PRN PRN Reason: Nausea And Vomiting Sodium Chloride (Sodium Chloride Flush Syringe 10 Ml) 10 ml IV BID [facility] Last Admin: 09/03/18 14:12 Dose: 10 ml Documented by: Sodium Chloride (Sodium Chloride Flush Syringe 10 Ml) 10 ml IV PRN PRN PRN Reason: LINE FLUSH Tamsulosin HCl (Flomax) 0.4 mg PO BID [facility] Last Admin: 09/03/18 23:45 Dose: 0.4 mg Documented by: Ticagrelor (Brilinta) 90 mg PO BID [facility] Last Admin: 09/03/18 23:44 Dose: 90 mg Documented by: Tramadol HCl (Ultram) 50 mg PO Q6H PRN PRN Reason: Pain, Moderate (4-6) Last Admin: 09/03/18 05:21 Dose: 50 mg Documented by: Review of Systems Constitutional: weakness (generalized), no weight loss, no weight gain, no f ever, no chills, no sweats Ears, nose, mouth and throat: no ear pain, no nose pain, no sinus pressure, no sinus pain Cardiovascular: high blood pressure, no chest pain, no orthopnea, no palpitations, no rapid/irregular heart beat, no edema, no syncope, no lightheadedness, no shortness of breath, no dyspnea on exertion Respiratory: no cough, no shortness of breath, no dyspnea on exertion, no congestion, no wheezing, no pain on inspiration Gastrointestinal: no abdominal pain, no nausea, no vomiting, no diarrhea, no constipation, no change in bowel habits Genitourinary Male: no dysuria, no hematuria, no flank pain, no discharge, no urinary frequency, no urinary hesitancy Musculoskeletal: muscle weakness (generalized), other (balance difficulties), no neck stiffness, no neck pain, no shooting arm pain, no arm numbness/tingling, no low back pain, no shooting leg pain Integumentary: no rash, no pruritis, no redness, no sores, no wounds Neurological: weakness (generalized), balance difficulties, no head injury, no paralysis, no parathesias, no numbness, no tingling, no seizures, no syncope, no tremors, no vertigo Psychiatric: no anxiety Endocrine: no cold intolerance, no heat intolerance Hematologic/Lymphatic: no easy bruising, no easy bleeding Allergic/Immunologic: no urticaria, no wheezing, no persistent infections Physical Examination Vital Signs Pulse Resp BP Pulse Ox 41 L 16 102/58 97 08/30/18 15:56 08/30/18 15:56 08/30/18 15:56 08/30/18 15:56 General appearance: no acute distress HEENT: Positive: PERRL, Normocephaly, Mucus Membranes Moist Neck: Positive: neck supple, trachea midline Cardiac: Positive: Reg Rate and Rhythm, S1/S2 Lungs: Positive: Decreased Breath Sounds Neuro: Positive: Grossly Intact Abdomen: Positive: Soft. Negative: Tender Skin: Negative: Wound Musculoskeletal: No Pain Extremities: Present: edema (trace BLE nonpitting) Results 08/31/18 04:15 08/31/18 04:15 - Imaging and Cardiology Echo: report reviewed (08/15/2018 showed EF 20%, mild MR, mild TR, pseudonormalization, severe pulm HTN with RVSP 62mmHg, mod to large pericardial effusion, no evidence of tamponade. ) Cardiac cath: report reviewed (03/2018 with PCI of mid 95% RCA, EF 40%. ) EKG: report reviewed, image reviewed EKG interpretations - Telemetry EKG Rhythm: Sinus Rhythm - EKG Sinus rhythms and dysrhythmias: sinus rhythm Pacemaker: ventricular pacing w/capt Assessment and Plan Currently stable cardiac status. No apparent cardiac etiology for weakness and frequent falls. Pt may discharge home from cardiology standpoint on home cardiac regimen. Recommend follow up in our office with Dr. Christianson within 1-2 weeks of hospital discharge ([phone]). Pt and pt's state they will call and make appt. The patient has been seen in conjunction with Dr. Reyes who agrees with the assessment and plan of care. - Patient Problems (1) Weakness Current Visit: Yes Status: Acute (2) Frequent falls Current Visit: Yes Status: Acute (3) Chronic systolic heart failure Current Visit: Yes Status: Chronic (4) Cardiomyopathy Current Visit: Yes Status: Chronic (5) CAD (coronary artery disease) Current Visit: Yes Status: Chronic Qualifiers: Coronary Disease-Associated Artery/Lesion type: [place] artery [place] vs. transplanted heart: [place] heart (6) Presence of permanent cardiac pacemaker Current Visit: Yes Status: Chronic (7) HTN (hypertension) Current Visit: Yes Status: Chronic Qualifiers: Hypertension type: essential hypertension (8) Stented coronary artery Current Visit: Yes Status: Chronic (9) Pericardial effusion Current Visit: Yes Status: Chronic (10) T2DM (type 2 diabetes mellitus) Current Visit: Yes Status: Chronic Qualifiers: Diabetes mellitus [facility] insulin use: without [employer] foreman use
[2018-09-04] MEDS: FISH OIL PO SCH (09:46)
[2018-09-04] MEDS: FLOMAX PO SCH (09:46)
[2018-09-04] MEDS: COZAAR PO SCH (09:46)
[2018-09-04] MEDS: GLUCOPHAGE PO SCH (09:47)
[2018-09-04] MEDS: BRILINTA PO SCH (09:47)
[2018-09-04] MEDS: COREG PO SCH (09:47)
[2018-09-04] MEDS: LEXAPRO PO SCH (09:47)
[2018-09-04] MEDS: AUGMENTIN 875 MG PO SCH (09:48)
[2018-09-04] MEDS: BABY ASPIRIN PO SCH (09:48)
[2018-09-04] MEDS: SODIUM CHLORIDE FLUSH SYRINGE 10 ML IV SCH (09:48)
[2018-09-04 14:15] VITALS: BP 114/81
--- NOTE | 2018-09-05 08:55 | Query- General ---
Ankit Ovalle Date:___09/05/2018 Chairman And Ceo/CDS:__Vivienne/Ayaz Phone#:__[phone] Exercise your independent professional judgment when responding to this query. Questions asked do not imply a particular answer is desired or expected. We greatly appreciate your clarification on this issue. Clinical Documentation States: Patient is 73yo with hypertension, diabetes, coronary artery disease. He presents because of frequent falls. he denied loss of consciousness. He was admitted, evaluated by neurology. CT of the cervical, thoracic and lumbar spines were done revealed osteoarthritic changes. Given the above clinical scenario can you please provide an appropriate diagnosis based on your knowledge of the patient: PHYSICIAN RESPONSE: Etiology of Fall: ____UNKNOWN POSSIBLE DECONDITION Present on Admission: [X ] Yes (Y) [ ] Clinically undeterminable (W) [ ]No(N) Please also document response in your Progress Notes and/or Discharge Summary and indicate if the condition was present on admission. KRISHNA
== END 2018-09-04 13:45 | disposition home or self-care (01) | DRG 92 ==
LOC: ED 15:38 → 4A 20:28 → 2B-ACE 09-02 16:01
PROVIDERS: ADMIT Internal Medicine; ATTEND Internal Medicine
DX: R29.6 Repeated falls (principal); I50.22 Chronic systolic (congestive) heart failure; I42.9 Cardiomyopathy, unspecified; I31.3 Pericardial effusion (noninflammatory); R53.1 Weakness; R53.81 Other malaise; I08.1 Rheumatic disorders of both mitral and tricuspid valves; E11.9 Type 2 diabetes mellitus without complications; I25.10 Atherosclerotic heart disease of native coronary artery without angina pectoris; E78.5 Hyperlipidemia, unspecified; I27.20 Pulmonary hypertension, unspecified; F32.9 Major depressive disorder, single episode, unspecified; I11.0 Hypertensive heart disease with heart failure; Z82.49 Family history of ischemic heart disease and other diseases of the circulatory system; Z79.82 Long term (current) use of aspirin; Z79.899 Other long term (current) drug therapy; Z79.84 Long term (current) use of oral hypoglycemic drugs; Z95.0 Presence of cardiac pacemaker; Z95.5 Presence of coronary angioplasty implant and graft; Z87.442 Personal history of urinary calculi
CPT/HCPCS: 36415; 70450; 71111; 72125; 72128; 72131; 73521; 74177; 80048; 82550; 82553; 82962; 83735; 83880; 84439; 84443; 84484; 85025; 85027; 85610; 85730; 86850; 86900; 86901; 93005; 93010; 94760; G0378; A9270-GY; J1644; Q9967

== ENCOUNTER 2022-01-25 14:33 | Emergency (ER) | payer MEDICARE ==
[2022-01-25 16:09] LABS: Basophils % (Auto) 0.6 % (0.0-1.8); Eosinophils # (Auto) 0.1 K/mm3 (0.0-0.4); Eosinophils % (Auto) 0.8 % (0.0-4.3); Hematocrit 45.1 % (35.5-45.6); Hemoglobin 14.8 gm/dl (11.8-15.2); Lymphocytes # (Auto) 0.7 K/mm3 (1.2-5.4); Lymphocytes % (Auto) 7.5 % (13.4-35.0); Mean Corpuscular HGB Conc 33 % (32-34); Mean Corpuscular Volume 92 fl (84-94); Monocytes # (Auto) 0.7 K/mm3 (0.0-0.8); Monocytes % (Auto) 7.7 % (0.0-7.3); Platelet Count 155 K/mm3 (140-440); Red Cell Distribution Width 13.4 % (13.2-15.2)
[2022-01-25 16:16] LABS: Alanine Aminotransferase 18 units/L (7-56); Albumin 4.1 g/dL (3.9-5); BUN/Creatinine Ratio 28; Blood Urea Nitrogen 22 mg/dL (9-20); Calcium 9.2 mg/dL (8.4-10.2); Hemolysis Index 14
[2022-01-25] MEDS ORDERED: SODIUM CHLORIDE 0.9% 1000 ML 1,000 ML IV ONE (16:22)
--- NOTE | 2022-01-25 16:26 | Emergency Department Report ---
ED Male HPI - General Chief complaint: Urogenital-Male Stated complaint: HEMATURIA Time Seen by Provider: 01/25/22 16:11 Source: patient, EMS Mode of arrival: Stretcher Limitations: No Limitations - History of Present Illness Initial comments: 77-year-old male with a history of diabetes who now presents with painful urination associated with blood that started yesterday progressively getting worse. Patient reported that he was up all night going to the bathroom [id number]. His small urine produced in the ED was full of bright red blood. Pt however denies any fever or chills. He reports history of kidney stone but has not had an episode recently. He reported constipation with last BM yesterday. No other modifying or associated factors reported. - Related Data Home Medications Medication Instructions Recorded Confirmed Last Taken AtorvaSTATin [Lipitor] 40 mg PO DAILY 03/18/18 03/28/19 03/27/19 Escitalopram [Lexapro] 10 mg PO DAILY 03/18/18 03/28/19 03/27/19 Metformin HCl [Glucophage] 500 mg PO BID 03/18/18 03/28/19 03/27/19 Tamsulosin HCl [Flomax] 0.4 mg PO BID 03/18/18 03/28/19 03/27/19 [place]-3S/Dha/Epa/Fish Oil [Fish 1 each PO DAILY 04/24/18 03/28/19 03/27/19 Oil 1,200 mg Softgel] Previous Rx's Medication Instructions Recorded Last Taken Type Furosemide [Lasix] 40 mg PO DAILY #60 tablet 03/21/18 04/24/18 11:00 Rx Aspirin [Aspirin BABY CHEW TAB] 81 mg PO QDAY tab.chew 04/25/18 03/27/19 Rx Escitalopram [Lexapro] 10 mg PO QDAY tablet 04/25/18 03/27/19 Rx Losartan [Cozaar] 100 mg PO QDAY tablet 04/25/18 03/27/19 Rx Ticagrelor [Brilinta] 90 mg PO BID #60 tablet 04/25/18 03/27/19 Rx Levothyroxine [Synthroid] 25 mcg PO DAILY@0600 #30 tablet 08/19/18 03/27/19 Rx carvediloL [Coreg] 3.125 mg PO BID #60 tablet 08/19/18 03/27/19 Rx Allergies Allergy/AdvReac Type Severity Reaction Status Date / Time Sulfa (Sulfonamide Allergy Mild Unknown Verified 01/25/22 15:29 Antibiotics) ED Review of Systems ROS: Stated complaint: HEMATURIA Other details as noted in HPI Comment: All other systems reviewed and negative Genitourinary: urgency, dysuria, hematuria. denies: testicular pain ED Past Medical Hx - Past Medical History Hx Hypertension: Yes Hx Heart Attack/AMI: Yes (from EKG) Hx Congestive Heart Failure: Yes (EF 20-25%) Hx Diabetes: Yes Hx Kidney Stones: Yes Hx Psychiatric Treatment: Yes (depression) Hx HIV: No Additional medical history: Pacemaker - Surgical History Hx Coronary Stent: Yes (X1) Hx Pacemaker: Yes Additional Surgical History: Prostate trim and biopsy - Social History Smoking Status: Never Smoker Substance Use Type: None - Medications Home Medications: Home Medications Medication Instructions Recorded Confirmed Last Taken Type AtorvaSTATin [Lipitor] 40 mg PO DAILY 03/18/18 03/28/19 03/27/19 History Escitalopram [Lexapro] 10 mg PO DAILY 03/18/18 03/28/19 03/27/19 History Metformin HCl [Glucophage] 500 mg PO BID 03/18/18 03/28/19 03/27/19 History Tamsulosin HCl [Flomax] 0.4 mg PO BID 03/18/18 03/28/19 03/27/19 History Furosemide [Lasix] 40 mg PO DAILY #60 tablet 03/21/18 03/28/19 04/24/18 11:00 Rx [place]-3S/Dha/Epa/Fish Oil [Fish 1 each PO DAILY 04/24/18 03/28/19 03/27/19 History Oil 1,200 mg Softgel] Aspirin [Aspirin BABY CHEW TAB] 81 mg PO QDAY tab.chew 04/25/18 03/28/19 03/27/19 Rx Escitalopram [Lexapro] 10 mg PO QDAY tablet 04/25/18 03/28/19 03/27/19 Rx Losartan [Cozaar] 100 mg PO QDAY tablet 04/25/18 03/28/19 03/27/19 Rx Ticagrelor [Brilinta] 90 mg PO BID #60 tablet 04/25/18 03/28/19 03/27/19 Rx Levothyroxine [Synthroid] 25 mcg PO DAILY@0600 #30 tablet 12/23/18 08/01/19 07 /31/19 Rx carvediloL [Coreg] 3.125 mg PO BID #60 tablet 08/19/18 03/28/19 03/27/19 Rx ED Physical Exam - General Limitations: No Limitations General appearance: alert, in no apparent distress - Head Head exam: Present: normal inspection - Eye Eye exam: Present: normal appearance Pupils: Present: normal accommodation - ENT ENT exam: Present: normal exam, normal orophraynx, mucous membranes dry - Neck Neck exam: Present: normal inspection, full ROM. Absent: tenderness, meningismus - Respiratory Respiratory exam: Present: normal lung sounds bilaterally. Absent: respiratory distress, chest wall tenderness - Cardiovascular Cardiovascular Exam: Present: regular rate, normal rhythm, normal heart sounds - GI/Abdominal GI/Abdominal exam: Present: soft, normal bowel sounds. Absent: distended, tenderness - exam: Present: normal inspection (with blood at the meatus ). Absent: testicular tenderness, scrotal swelling - Extremities Exam Extremities exam: Present: normal inspection, normal capillary refill. Absent: tenderness - Back Exam Back exam: Absent: tenderness - Neurological Exam Neurological exam: Present: alert, oriented X3 - Psychiatric Psychiatric exam: Present: normal affect, normal mood - Skin Skin exam: Present: warm, normal color ED Course Vital Signs 01/25/22 01/25/22 01/25/22 14:35 15:29 15:42 Temperature 98.1 F Pulse Rate 90 101 H Respiratory 18 18 Rate Blood Pressure Blood Pressure 140/90 [Left] O2 Sat by Pulse 95 98 95 Oximetry 01/25/22 01/25/22 01/25/22 15:45 16:01 16:15 Temperature Pulse Rate 87 88 88 Respiratory 20 19 Rate Blood Pressure Blood Pressure [Left] O2 Sat by Pulse 94 95 97 Oximetry 01/25/22 01/25/22 01/25/22 16:31 16:32 16:45 Temperature Pulse Rate 81 82 Respiratory 16 14 Rate Blood Pressure 131/79 131/79 Blood Pressure 131/79 [Left] O2 Sat by Pulse 96 100 97 Oximetry 01/25/22 01/25/22 01/25/22 17:00 17:15 17:31 Temperature Pulse Rate Respiratory 12 20 21 Rate Blood Pressure 151/90 151/90 151/90 Blood Pressure [Left] O2 Sat by Pulse 97 97 96 Oximetry 01/25/22 01/25/22 01/25/22 17:45 18:01 18:15 Temperature Pulse Rate Respiratory 15 10 L 19 Rate Blood Pressure 151/90 142/83 142/83 Blood Pressure [Left] O2 Sat by Pulse 96 98 97 Oximetry 01/25/22 01/25/22 01/25/22 18:18 18:30 18:45 Temperature Pulse Rate 90 Respiratory 17 18 13 Rate Blood Pressure 136/78 Blood Pressure 136/78 [Left] O2 Sat by Pulse 97 97 97 Oximetry 01/25/22 01/25/22 01/25/22 19:01 19:15 19:31 Temperature Pulse Rate Respiratory 20 20 14 Rate Blood Pressure 142/85 142/85 135/90 Blood Pressure [Left] O2 Sat by Pulse 96 96 98 Oximetry 01/25/22 01/25/22 01/25/22 19:45 20:15 20:31 Temperature Pulse Rate Respiratory 14 14 21 Rate Blood Pressure 135/90 82/53 157/96 Blood Pressure [Left] O2 Sat by Pulse 98 96 96 Oximetry 01/25/22 20:45 Temperature Pulse Rate Respiratory 16 Rate Blood Pressure 157/96 Blood Pressure [Left] O2 Sat by Pulse 94 Oximetry - Reevaluation(s) Reevaluation #1: 01/25/22 16:27 here with painful hematuria-- with differential diagnosis that includes but not limited to kidney stone dislodgment, urinary tract infection, pyelonephritis, bladder cancer, or urethritis. In order to rule the above house we will go ahead and get a CT scan of the abdomen/pelvic without contrast, order routine labs including CBC, CMP, and urinalysis--in the meantime we will get patient started on IV fluids normal saline 1 L bolus for hydration and challenge his kidney. Reevaluation #2: 01/25/22 17:57 Patient is able to provide clear urine after 500 cc of the IV fluids normal saline--we will continue to monitor labs and CT scan abdomen/pelvic imaging Reevaluation #3: 01/25/22 17:58 Noted with reassuring H&H so the hematuria has not led to drop in hemoglobin or hematocrit. Reevaluation #4: 01/25/22 20:57 CT abd/pel --noted with no acute finding but nonobstructive nephrolithiasis ED Medical Decision Making - Lab Data Result diagrams: 01/25/22 Unknown 01/25/22 Unknown - Medical Decision Making See progress note for detail - Differential Diagnosis See progress note for detail Critical care attestation.: If time is entered above; I have spent that time in minutes in the direct care of this critically ill patient, excluding procedure time. ED Disposition Clinical Impression: Painful hematuria, Nephrolithiasis, Renal calculus, left BPH (benign prostatic hyperplasia) Qualifiers: Lower urinary tract symptom presence: unspecified whether lower urinary tract symptoms present Qualified Code(s): N40.0 - Benign prostatic hyperplasia without lower urinary tract symptoms Disposition: HOME / SELF CARE / HOMELESS Is pt being admited?: No Does the pt Need Aspirin: No Condition: Stable Instructions: Dietary Guidelines to Help Prevent Kidney Stones, Kidney Stones, Cwaf-al-Mbar, Benign Prostatic Hyperplasia Additional Instructions: Increase your daily fluid to help your hydration Call and follow-up with your primary doctor in the next 3 to 5 days for progress Please do not hesitate to call or return to emergency room if your symptoms recur or worsen Referrals: BRIANA THOMPSON MD [Primary Care Provider] - 3-5 Days Time of Disposition: 20:59
[2022-01-25 18:00] LABS: Bacteria,Urine 3+ /HPF (Negative); Bilirubin,Urine NEG (Negative); Blood,Urine LG (Negative); Color,Urine Red (Yellow); Mucus,Urine FEW /HPF; Urobilinogen,Urine < 2.0 mg/dL (<2.0)
[2022-01-25 18:01] LABS: RBC,Urine > 182.0 /HPF (0.0-6.0)
--- NOTE | 2022-01-25 19:12 | Cat Scan Report ---
CT ABDOMEN AND PELVIS WITHOUT CONTRAST HISTORY: painful hematuria with h/o renal stone. COMPARISON: CT abdomen/pelvis from 08/30/2018 TECHNIQUE: CT images of the abdomen and pelvis were obtained without administration of intravenous co ntrast. All CT scans at this location are performed using CT dose reduction for ALARA by means of au tomated exposure control. FINDINGS: Lungs/bones: Lung bases are clear. There are degenerative changes in the spine and the pelvis with n o acute osseous abnormality identified. Stable sclerotic focus in the right posterior iliac wing. Abdomen/pelvis: The liver, gallbladder, spleen, pancreas, adrenals, and proximal GI tract appear unr emarkable. There is nonobstructive nephrolithiasis in both kidneys with 4 mm stone in the lower pole the right and appear of 3 mm stones in the lower pole on the left. No ureteral stone or hydronephrosi s. The prostate is enlarged, heterogeneous, and indents the bladder base. The bladder is otherwise unrem arkable. No pelvic free fluid. No acute colonic abnormality identified. The appendix is normal. IMPRESSION: 1. No acute abnormality. 2. Enlarged heterogeneous prostate indenting the bladder base. 3. Nonobstructive nephrolithiasis. Signer Name: Fredy Sharpe MD Signed: 01/25/2022 7:07 PM Workstation Name: [id number]
[2022-01-25 20:55] VITALS: BP 157/96
== END 2022-01-25 21:42 | disposition home or self-care (01) ==
LOC: ED 14:33
DX: R31.9 Hematuria, unspecified (principal); N20.0 Calculus of kidney; N40.0 Benign prostatic hyperplasia without lower urinary tract symptoms; I10 Essential (primary) hypertension; Z88.2 Allergy status to sulfonamides; E11.9 Type 2 diabetes mellitus without complications
CPT/HCPCS: 36415; 74176; 80053; 81001; 85025; 87086; 96360; 99284; J7030

== ENCOUNTER 2022-04-12 03:58 | Inpatient (IN) | payer MEDICARE ==
[2022-04-12 07:46] LABS: Basophils # (Auto) 0.1 K/mm3 (0.0-0.1); Basophils % (Auto) 0.6 % (0.0-1.8); Eosinophils % (Auto) 0.1 % (0.0-4.3); Hematocrit 37.8 % (35.5-45.6); Hemoglobin 12.4 gm/dl (11.8-15.2); Lymphocytes # (Auto) 1.3 K/mm3 (1.2-5.4); Lymphocytes % (Auto) 9.9 % (13.4-35.0); Mean Corpuscular HGB Conc 33 % (32-34); Mean Corpuscular Volume 92 fl (84-94); Monocytes # (Auto) 1.1 K/mm3 (0.0-0.8); Monocytes % (Auto) 8.6 % (0.0-7.3); Platelet Count 257 K/mm3 (140-440); Red Cell Distribution Width 13.8 % (13.2-15.2)
[2022-04-12 07:55] LABS: INR 1.07 (0.87-1.13)
[2022-04-12 08:05] LABS: Creatine Kinase MB 2.6 ng/mL (0.0-4.0)
[2022-04-12] MEDS ORDERED: FUROSEMIDE 40 MG/4 ML INJ IV ONE (08:07)
[2022-04-12 08:08] LABS: Albumin 3.3 g/dL (3.9-5); Calcium 8.8 mg/dL (8.4-10.2)
[2022-04-12 08:20] LABS: Chol/HDL Ratio 1.79 %
--- NOTE | 2022-04-12 08:24 | XRay Report ---
CHEST 1 VIEW 04/12/2022 7:17 AM INDICATION / CLINICAL INFORMATION: Weakness. COMPARISON: 08/15/18. FINDINGS: SUPPORT DEVICES: The position of the dual chamber left subclavian transvenous pacemaker has not phillips ed. HEART / MEDIASTINUM: The heart size and pulmonary vasculature are normal for technique. LUNGS / PLEURA: No significant pulmonary or pleural abnormality. No pneumothorax. ADDITIONAL FINDINGS: No significant additional findings. IMPRESSION: No acute findings. Signer Name: Abdias Montes MD Signed: 04/12/2022 8:20 AM Workstation Name: [email or web address]
[2022-04-12 08:28] LABS: Amphetamine Screen,Urine Negative; Benzodiazepines Screen,Urine Negative; Cannabinoid Screen,Urine Negative; Cocaine Screen,Urine Negative; Methadone Screen,Urine Negative; Opiate Screen,Urine Negative
[2022-04-12 08:38] LABS: Color,Urine Straw (Yellow); WBC,Urine > 182.0 /HPF (0.0-6.0)
[2022-04-12 08:39] LABS: Bilirubin,Urine Negative (Negative); Blood,Urine 1+ (Negative); Protein,Urine 300 mg/dL mg/dL (Negative); Urobilinogen,Urine < 2.0 mg/dL (<2.0)
[2022-04-12 08:39] LABS: C-Reactive Protein 29.8 mg/dL (0.00-1.30)
--- NOTE | 2022-04-12 09:05 | Cat Scan Report ---
CT head/brain wo con INDICATION / CLINICAL INFORMATION: 77 years Male; Stroke symptoms. TECHNIQUE: Routine CT head without contrast. All CT scans at this location are performed using CT dos e reduction for ALARA by means of automated exposure control. COMPARISON: None. FINDINGS: BRAIN / INTRACRANIAL CONTENTS: No acute hemorrhage, mass effect, midline shift, hydrocephalus, or acu te, large territorial infarct. Mild diffuse cerebral and cerebellar atrophy. There are scattered areas of decreased attenuation in the white matter of the cerebral hemispheres. T hese are nonspecific findings and may be related to microangiopathy (hypertension, diabetes, atherosc lerosis), given the patient's age. It might be difficult to evaluate for small areas of ischemia with out diffusion imaging by MRI. No chronic infarct is identified. CRANIOCERVICAL JUNCTION: No significant abnormality. ORBITS: No significant abnormality of visualized orbits. SINUSES / MASTOIDS: Visualized paranasal sinuses and mastoid air cells are essentially clear. ADDITIONAL FINDINGS: Atherosclerotic disease is seen in the anterior and posterior circulation. IMPRESSION: 1. No acute intracranial abnormality. Mild diffuse atrophy and chronic white matter changes. Signer Name: Jacob Pina Jr, MD Signed: 04/12/2022 9:01 AM Workstation Name: [id number]
[2022-04-12] MEDS ORDERED: cefTRIAXone/NS 1 GM/50 ML 1 GM/50 ML BAG IV ONE (09:09)
[2022-04-12] MEDS ORDERED: ADENOSINE 6 MG/2 ML INJ ONE (09:14)
[2022-04-12] MEDS ORDERED: SODIUM CHLORIDE 0.9% 1000 ML 1,000 ML ONE (09:25)
[2022-04-12] MEDS ORDERED: ADENOSINE 6 MG/2 ML INJ IV ONE ×2 (09:40)
[2022-04-12] MEDS ORDERED: SODIUM CHLORIDE 0.9% 1000 ML 1,000 ML IV ONE (09:41)
--- NOTE | 2022-04-12 11:34 | Electrocardiograph Report ---
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
--- NOTE | 2022-04-12 11:38 | Electrocardiograph Report ---
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
--- NOTE | 2022-04-12 11:40 | Emergency Department Report ---
ED General Adult HPI - General Chief complaint: Extremity Problem,Nontraumatic Stated complaint: WEAKNESS PUI?: No Time Seen by Provider: 04/12/22 06:25 Source: patient, EMS Mode of arrival: Stretcher Limitations: Physical Limitation - History of Present Illness Initial comments: 77 years old with HTN DM, CHF , herer today because of wekaness started this am , he wasn;t able to walk to bathroom, fever noted unable to bare weight on his lower extremities. pitting edema. -: Sudden, hour(s) Location: lower extremity Radiation: non-radiation Severity scale (0 -10): 3 - Related Data Home Medications Medication Instructions Recorded Confirmed Last Taken AtorvaSTATin [Lipitor] 40 mg PO DAILY 03/18/18 03/28/19 03/27/19 Escitalopram [Lexapro] 10 mg PO DAILY 03/18/18 03/28/19 03/27/19 Metformin HCl [Glucophage] 500 mg PO BID 03/18/18 03/28/19 03/27/19 Tamsulosin HCl [Flomax] 0.4 mg PO BID 03/18/18 03/28/19 03/27/19 [place]-3S/Dha/Epa/Fish Oil [Fish 1 each PO DAILY 04/24/18 03/28/19 03/27/19 Oil 1,200 mg Softgel] Previous Rx's Medication Instructions Recorded Last Taken Type Furosemide [Lasix] 40 mg PO DAILY #60 tablet 03/21/18 04/24/18 11:00 Rx Aspirin [Aspirin BABY CHEW TAB] 81 mg PO QDAY tab.chew 04/25/18 03/27/19 Rx Escitalopram [Lexapro] 10 mg PO QDAY tablet 04/25/18 03/27/19 Rx Losartan [Cozaar] 100 mg PO QDAY tablet 04/25/18 03/27/19 Rx Ticagrelor [Brilinta] 90 mg PO BID #60 tablet 04/25/18 03/27/19 Rx Levothyroxine [Synthroid] 25 mcg PO DAILY@0600 #30 tablet 08/19/18 03/27/19 Rx carvediloL [Coreg] 3.125 mg PO BID #60 tablet 08/19/18 03/27/19 Rx Allergies Allergy/AdvReac Type Severity Reaction Status Date / Time Sulfa (Sulfonamide Allergy Mild Unknown Verified 01/25/22 15:29 Antibiotics) ED Review of Systems ROS: Stated complaint: WEAKNESS Other details as noted in HPI Constitutional: denies: chills, fever Eyes: denies: eye pain, eye discharge, vision change ENT: denies: ear pain, throat pain Respiratory: denies: cough, shortness of breath, wheezing Cardiovascular: denies: chest pain, palpitations Endocrine: no symptoms reported Gastrointestinal: denies: abdominal pain, nausea, diarrhea Genitourinary: denies: urgency, dysuria Musculoskeletal: denies: back pain, joint swelling, arthralgia Skin: denies: rash, lesions Neurological: denies: headache, weakness, paresthesias Psychiatric: denies: anxiety, depression Hematological/Lymphatic: denies: easy bleeding, easy bruising ED Past Medical Hx - Past Medical History Hx Hypertension: Yes Hx Heart Attack/AMI: Yes (from EKG) Hx Congestive Heart Failure: Yes (EF 20-25%) Hx Diabetes: Yes Hx Kidney Stones: Yes Hx Psychiatric Treatment: Yes (depression) Hx HIV: No Additional medical history: Pacemaker - Surgical History Hx Coronary Stent: Yes (X1) Hx Pacemaker: Yes Additional Surgical History: Prostate trim and biopsy - Social History Smoking Status: Never Smoker - Medications Home Medications: Home Medications Medication Instructions Recorded Confirmed Last Taken Type AtorvaSTATin [Lipitor] 40 mg PO DAILY 03/18/18 03/28/19 03/27/19 History Escitalopram [Lexapro] 10 mg PO DAILY 03/18/18 03/28/19 03/27/19 History Metformin HCl [Glucophage] 500 mg PO BID 03/18/18 03/28/19 03/27/19 History Tamsulosin HCl [Flomax] 0.4 mg PO BID 03/18/18 03/28/19 03/27/19 History Furosemide [Lasix] 40 mg PO DAILY #60 tablet 03/21/18 03/28/19 04/24/18 11:00 Rx [place]-3S/Dha/Epa/Fish Oil [Fish 1 each PO DAILY 04/24/18 03/28/19 03/27/19 History Oil 1,200 mg Softgel] Aspirin [Aspirin BABY CHEW TAB] 81 mg PO QDAY tab.chew 04/25/18 03/28/19 03/27/19 Rx Escitalopram [Lexapro] 10 mg PO QDAY tablet 04/25/18 03/28/19 03/27/19 Rx Losartan [Cozaar] 100 mg PO QDAY tablet 04/25/18 03/28/19 03/27/19 Rx Ticagrelor [Brilinta] 90 mg PO BID #60 tablet 04/25/18 03/28/19 03/27/19 Rx Levothyroxine [Synthroid] 25 mcg PO DAILY@0600 #30 tablet 08/19/18 03/28/19 03/27/19 Rx carvediloL [Coreg] 3.125 mg PO BID #60 tablet 08/19/18 03/28/19 03/27/19 Rx ED Physical Exam - General Limitations: Physical Limitation General appearance: alert, in distress - Head Head exam: Present: normocephalic - Eye Eye exam: Present: normal appearance - ENT ENT exam: Present: mucous membranes moist - Neck Neck exam: Present: normal inspection - Respiratory Respiratory exam: Present: normal lung sounds bilaterally. Absent: respiratory distress - Cardiovascular Cardiovascular Exam: Present: normal rhythm, tachycardia. Absent: systolic murmur, diastolic murmur, rubs, gallop - GI/Abdominal GI/Abdominal exam: Present: soft, normal bowel sounds - Rectal Rectal exam: Present: deferred - Extremities Exam Extremities exam: Present: normal inspection - Back Exam Back exam: Present: normal inspection - Neurological Exam Neurological exam: Present: alert, oriented X3 - Psychiatric Psychiatric exam: Present: normal affect, normal mood - Skin Skin exam: Present: warm, dry, intact, normal color. Absent: rash ED Course Vital Signs 04/12/22 04/12/22 04/12/22 04:51 07:23 09:03 Temperature 98 F 101.1 F H Pulse Rate 108 H 103 H 105 H Respiratory 16 20 16 Rate Blood Pressure 147/86 Blood Pressure 120/62 147/86 145/81 [Right] O2 Sat by Pulse 92 95 95 Oximetry 04/12/22 11:42 Temperature Pulse Rate 104 H Respiratory 20 Rate Blood Pressure Blood Pressure 124/67 [Right] O2 Sat by Pulse 96 Oximetry ED Medical Decision Making - Lab Data Result diagrams: 04/12/22 07:06 04/12/22 07:06 - EKG Data -: EKG Interpreted by Me Rate: tachycardia - Radiology Data Radiology results: report reviewed, image reviewed - Medical Decision Making sepsis work up done , fluids withhold , abx given , ut noted, SVT treated with adenosine 6 then 12, trops noted , Critical care attestation.: If time is entered above; I have spent that time in minutes in the direct care of this critically ill patient, excluding procedure time. ED Disposition Clinical Impression: Weakness, Fever, Elevated troponin, CHF (congestive heart failure), Pyelonephritis, SVT (supraventricular tachycardia) Sepsis Qualifiers: Severe sepsis acute organ dysfunction type: acute renal failure UTI (urinary tract infection) Qualifiers: Encounter type: initial encounter Disposition: 09 ADMITTED INPATIENT Is pt being admited?: Yes Does the pt Need Aspirin: No Condition: Fair Referrals: PRIMARY CARE, [Primary Care Provider] - 3-5 Days
--- NOTE | 2022-04-12 12:03 | History and Physical Report ---
History of Present Illness Chief complaint: I feel weak and my legs are swollen History of present illness: 77 YO Male with HTN, DM, BPH, CAD, Systolic CHF(EF 20%), HLD, [place], Cardiomyopathy S/P Pacemaker Placement, MDD presents to ED for evaluation. Patient reports "I feel weak and my legs are swollen". Patient states that he has experienced generalized weakness, decreased exercise tolerance over the past 1 week with persistent and worsening symptoms over the past few days. Patient knowledges decreased exercise tolerance, dyspnea on exertion, dyspnea at rest, orthopnea, paroxysmal nocturnal dyspnea, as well as subjective fever. EMS was notified and upon arrival the patient was found to be in distress and subsequently transported to [facility] for further care and evaluation of the aforementioned symptoms. The patient was seen and evaluated in the emergency department. All lab and imaging studies reviewed. Patient underwent EKG and was also found to have supraventricular tachycardia and was treated with adenosine with normalization of heart rate. Patient found to have fever to 101.1 F as well as urinary tract infection complicated by sepsis, as well as clinical symptoms consistent with CHF decompensation as well as type II NSTEMI and cardiorenal syndrome. Patient initiated on sepsis protocol and admitted to IMCU due to increased risk of worsening symptoms and for medical stabilization. Patient also initiated on CHF protocol. Cardiology team consulted in ED. Patient knowledges fever but denies chills, chest pain, productive cough, skin rash, recent contact, or known exposure to COVID-19. Prior admission on 09/09/2018 reviewed. All medication listed at time of admission has been reconciled. Advanced care planning conducted in ED. Past History Past Medical History: diabetes, heart failure, hypertension, hyperlipidemia, other (See HPI) Past Surgical History: Other (Pacemaker placement) Social history: , lives with family. denies: smoking, alcohol abuse, prescription drug abuse Family history: diabetes, hypertension Medications and Allergies Allergies Allergy/AdvReac Type Severity Reaction Status Date / Time Sulfa (Sulfonamide Allergy Mild Unknown Verified 01/25/22 15:29 Antibiotics) Home Medications Medication Instructions Recorded Confirmed Last Taken Type AtorvaSTATin [Lipitor] 40 mg PO DAILY 03/18/18 03/28/19 03/27/19 History Escitalopram [Lexapro] 10 mg PO DAILY 03/18/18 03/28/19 03/27/19 History Metformin HCl [Glucophage] 500 mg PO BID 03/18/18 03/28/19 03/27/19 History Tamsulosin HCl [Flomax] 0.4 mg PO BID 03/18/18 03/28/19 03/27/19 History Furosemide [Lasix] 40 mg PO DAILY #60 tablet 03/21/18 03/28/19 04/24/18 11:00 Rx [place]-3S/Dha/Epa/Fish Oil [Fish 1 each PO DAILY 04/24/18 03/28/19 03/27/19 History Oil 1,200 mg Softgel] Aspirin [Aspirin BABY CHEW TAB] 81 mg PO QDAY tab.chew 04/25/18 03/28/19 03/27/19 Rx Escitalopram [Lexapro] 10 mg PO QDAY tablet 04/25/18 03/28/19 03/27/19 Rx Losartan [Cozaar] 100 mg PO QDAY tablet 04/25/18 03/28/19 03/27/19 Rx Ticagrelor [Brilinta] 90 mg PO BID #60 tablet 04/25/18 03/28/19 03/27/19 Rx Levothyroxine [Synthroid] 25 mcg PO DAILY@0600 #30 tablet 08/19/18 03/28/19 03/27/19 Rx carvediloL [Coreg] 3.125 mg PO BID #60 tablet 08/19/18 03/28/19 03/27/19 Rx Review of Systems Constitutional: weight gain, fever, fatigue, weakness, no weight loss, no chills Ears, nose, mouth and throat: no ear pain, no ear discharge, no tinnitis, no decreased hearing Cardiovascular: orthopnea, dyspnea on exertion, paroxysmal nocturnal dyspnea, leg edema, decreased exercise tolerance, no chest pain Respiratory: no cough, no cough with sputum, no excessive sputum Gastrointestinal: no abdominal pain, no nausea, no vomiting, no diarrhea Genitourinary Male: urinary frequency, no hematuria, no flank pain, no urinary hesitancy, no nocturia Rectal: no pain, no incontinence, no bleeding Musculoskeletal: no neck stiffness, no neck pain, no shooting arm pain, no arm numbness/tingling Integumentary: no rash, no pruritis, no redness, no sores, no wounds Neurological: no head injury, no transient paralysis, no paralysis, no weakness, no parathesias Psychiatric: no anxiety, no memory loss, no sleep disturbances Endocrine: no cold intolerance, no polyphagia, no excessive thirst, no polyuria Hematologic/Lymphatic: no easy bruising, no easy bleeding, no lymphedema Allergic/Immunologic: no urticaria, no persistent infections Exam - Constitutional Vitals: Temp Pulse Resp BP Pulse Ox 101.1 F H 104 H 20 124/67 96 04/12/22 07:23 04/12/22 11:42 04/12/22 11:42 04/12/22 11:42 04/12/22 11:42 General appearance: Present: mild distress - EENT Eyes: Present: PERRL ENT: hearing intact, clear oral mucosa - Neck Neck: Present: supple, normal ROM - Respiratory Respiratory effort: normal Respiratory: bilateral: CTA - Cardiovascular Rhythm: other (Tachycardia) Heart Sounds: Present: S1 & S2. Absent: rub, click - Extremities Extremities: no ischemia Extremity abnormal: edema Peripheral Pulses: abnormal (Capillary refill greater than 3.5 seconds) - Abdominal General gastrointestinal: Present: soft, non-tender, non-distended, normal bowel sounds Male genitourinary: Present: normal - Integumentary Integumentary: Present: clear, dry, clammy - Musculoskeletal Musculoskeletal: generalized weakness - Psychiatric Psychiatric: no appropriate mood/affect, no cooperative - Neurologic Neurologic: CNII-XII intact, no gait normal HEART Score - HEART Score Troponin: Troponin T 0.065 ng/mL (0.00-0.029) H 04/12/22 09:28 Results - Labs CBC & Chem 7: 04/12/22 07:06 04/12/22 07:06 Labs: Abnormal lab results 04/12/22 04/12/22 04/12/22 Range/Units 07:06 07:06 07:06 WBC 12.7 H (4.5-11.0) K/mm3 Lymph % (Auto) 9.9 L (13.4-35.0) % [place] % (Auto) 8.6 H (0.0-7.3) % [place] # (Auto) 1.1 H (0.0-0.8) K/mm3 Seg Neutrophils % 80.8 H (40.0-70.0) % Seg Neutrophils # 10.3 H (1.8-7.7) K/mm3 PT 15.1 H (12.2-14.9) Sec. Sodium 135 L (137-145) mmol/L BUN 34 H (9-20) mg/dL Creatinine 1.8 H (0.8-1.3) mg/dL Glucose 168 H (75-100) mg/dL Alkaline Phosphatase 144 H (35-129) units/L Total Creatine Kinase 184 H (55-170) units/L Troponin T 0.062 H (0.00-0.029) ng/mL C-Reactive Protein (0.00-1.30) mg/dL NT-Pro-B Natriuret Pep (0-900) pg/mL Total Protein 6.0 L (6.3-8.2) g/dL Albumin 3.3 L (3.9-5) g/dL LDL Cholesterol Direct 28 L (50-130) mg/dL Urine WBC (Auto) (0.0-6.0) /HPF 04/12/22 04/12/22 04/12/22 Range/Units 07:06 07:23 09:28 WBC (4.5-11.0) K/mm3 Lymph % (Auto) (13.4-35.0) % [place] % (Auto) (0.0-7.3) % [place] # (Auto) (0.0-0.8) K/mm3 Seg Neutrophils % (40.0-70.0) % Seg Neutrophils # (1.8-7.7) K/mm3 PT (12.2-14.9) Sec. Sodium (137-145) mmol/L BUN (9-20) mg/dL Creatinine (0.8-1.3) mg/dL Glucose (75-100) mg/dL Alkaline Phosphatase (35-129) units/L Total Creatine Kinase (55-170) units/L Troponin T 0.065 H (0.00-0.029) ng/mL C-Reactive Protein 29.80 H (0.00-1.30) mg/dL NT-Pro-B Natriuret Pep 69751 H (0-900) pg/mL Total Protein (6.3-8.2) g/dL Albumin (3.9-5) g/dL LDL Cholesterol Direct (50-130) mg/dL Urine WBC (Auto) > 182.0 H (0.0-6.0) /HPF Assessment and Plan - Patient Problems (1) Sepsis Current Visit: Yes Status: Acute Qualifiers: Severe sepsis acute organ dysfunction type: acute renal failure Plan to address problem: Sepsis protocol: IV antibiotic therapy, chest x-ray, urinalysis, IV fluid resuscitation therapy, IV antibiotic therapy, blood culture, serial lactic acid level, maintain mean arterial pressure greater than equal to 65, monitor fluid balance, monitor urine output every shift (2) NSTEMI (non-ST elevated myocardial infarction) Current Visit: Yes Status: Acute Plan to address problem: Type II NSTEMI: Serial cardiac enzymes, EKG, telemetry monitoring, echocardiogram ordered and pending at time of admission, cardiology team c onsulted. (3) Cardiorenal syndrome Current Visit: Yes Status: Acute Qualifiers: Heart failure presence: with heart failure Plan to address problem: Urine electrolytes, nephrology team consulted, monitor urine output every shift (4) UTI (urinary tract infection) Current Visit: Yes Status: Acute Qualifiers: Encounter type: initial encounter Plan to address problem: Urinalysis, IV antibiotic therapy, repeat CBC in AM. (5) Acute on chronic systolic CHF (congestive heart failure) Current Visit: No Status: Acute Plan to address problem: Strict I's/O, monitor urine output every shift, daily weight, afterload reduction, blood pressure control, supplemental oxygen, pulse oximetry, echocardiogram ordered and pending at time of admission, diuresis with Lasix. Monitor fluid balance. (6) NSVT (nonsustained ventricular tachycardia) Current Visit: No Status: Acute Plan to address problem: Patient treated with adenosine with conversion back to sinus rhythm. Cardiology team consulted, continue telemetry monitoring. (7) BPH (benign prostatic hyperplasia) Current Visit: No Status: Chronic Qualifiers: Lower urinary tract symptom presence: symptoms present Plan to address problem: Continue medical management, outpatient urology follow-up. (8) Depression Current Visit: No Status: Chronic Qualifiers: Depression Type: unspecified Qualified Code(s): F32.9 - Major depressive disorder, single episode, unspecified Plan to address problem: Continue medical management, supportive care. No acute exacerbation at this time, outpatient psychiatry follow-up. (9) Diabetes Current Visit: No Status: Chronic Plan to address problem: Consistent carbohydrate diet, Accu-Chek, insulin protocol, hypoglycemia protocol. (10) HLD (hyperlipidemia) Current Visit: No Status: Chronic Qualifiers: Hyperlipidemia type: mixed hyperlipidemia Qualified Code(s): E78.2 - Mixed hyperlipidemia Plan to address problem: Statin therapy, supportive care, low-cholesterol diet. (11) HTN (hypertension) Current Visit: No Status: Chronic Qualifiers: Hypertension type: primary hypertension Qualified Code(s): I10 - Essential (primary) hypertension Plan to address problem: Monitor blood pressure every shift, continue medical management. (12) DVT prophylaxis Current Visit: Yes Status: Acute Plan to address problem: SCD to bilateral lower extremities while in bed (13) Advance care planning Current Visit: Yes Status: Acute Plan to address problem: Disease education conducted, care plan discussed, diagnoses discussed, prognosis discussed, patient is full code. Patient acknowledges understanding and agre ement with care plan, +30 minutes. (14) Preventative health care Current Visit: Yes Status: Acute Plan to address problem: Patient counseled regarding dietary compliance, fluid restriction compliance, outpatient follow-up with primary care physician for all age and risk factor appropriate screening test. +30 minutes.
[2022-04-12] MEDS ORDERED: ACETAMINOPHEN 325 MG TAB PO PRN ×3 (12:06→12:50)
[2022-04-12] MEDS ORDERED: HYDROmorphone 0.5 MG/0.5 ML INJ IV PRN ×2 (12:06)
[2022-04-12] MEDS ORDERED: ALBUTEROL 2.5 MG/3 ML NEBU IH PRN (12:06)
[2022-04-12] MEDS ORDERED: traMADol 50 MG TAB PO PRN (12:50)
[2022-04-12] MEDS ORDERED: NITROGLYCERIN 0.4 MG TAB SUBL SL PRN (12:50)
[2022-04-12] MEDS ORDERED: DEXTROSE 50% IN WATER (25GM) 50 ML SYRINGE IV PRN (13:00)
[2022-04-12] MEDS ORDERED: SODIUM CHLORIDE 0.9% 1000 ML IV SOLN IV SCH (13:00)
--- NOTE | 2022-04-12 13:43 | Consultation ---
History of Present Illness - Reason for Consult Consult date: 04/12/22 acute renal failure - History of Present Illness The patient is a 77 YO male with history of HTN, DM, HLD, BPH, CAD, Systolic CHF(EF 20%), [place], Cardiomyopathy S/P Pacemaker Placement and MDD who presented to [facility] ED 04/12/22 with c/o feeling weak and difficulty in walking. Patient is a very poor historian. He states that he has experienced generalized weakness, decreased exercise tolerance and LE swelling. EKG showed supraventricular tachycardia and was treated with adenosine with normalization of heart rate. Patient found to have fever to 101.1 F. All lab and imaging studies reviewed. CXR negative. Patient initiated on sepsis protocol and admitted to [facility]. Cardiology consulted for CHF. Labs notable for Creat 1.8. Nephrology consulted for further evaluation of ANJUM. Past History Past Medical History: diabetes, heart failure, hypertension, hyperlipidemia, other (See HPI) Past Surgical History: Other (Pacemaker placement) Social history: , lives with family. denies: smoking, alcohol abuse, prescription drug abuse Family history: diabetes, hypertension Medications and Allergies Allergies Allergy/AdvReac Type Severity Reaction Status Date / Time Sulfa (Sulfonamide Allergy Mild Unknown Verified 01/25/22 15:29 Antibiotics) Home Medications Medication Instructions Recorded Confirmed Last Taken Type AtorvaSTATin [Lipitor] 40 mg PO DAILY 03/18/18 03/28/19 03/27/19 History Escitalopram [Lexapro] 10 mg PO DAILY 03/18/18 03/28/19 03/27/19 History Metformin HCl [Glucophage] 500 mg PO BID 03/18/18 03/28/19 03/27/19 History Tamsulosin HCl [Flomax] 0.4 mg PO BID 03/18/18 03/28/19 03/27/19 History Furosemide [Lasix] 40 mg PO DAILY #60 tablet 03/21/18 03/28/19 04/24/18 11:00 Rx [place]-3S/Dha/Epa/Fish Oil [Fish 1 each PO DAILY 04/24/18 03/28/19 03/27/19 History Oil 1,200 mg Softgel] Aspirin [Aspirin BABY CHEW TAB] 81 mg PO QDAY tab.chew 04/25/18 03/28/19 03/27/19 Rx Escitalopram [Lexapro] 10 mg PO QDAY tablet 04/25/18 03/28/19 03/27/19 Rx Losartan [Cozaar] 100 mg PO QDAY tablet 04/25/18 03/28/19 03/27/19 Rx Ticagrelor [Brilinta] 90 mg PO BID #60 tablet 04/25/18 03/28/19 03/27/19 Rx Levothyroxine [Synthroid] 25 mcg PO DAILY@0600 #30 tablet 08/19/18 03/28/19 03/27/19 Rx carvediloL [Coreg] 3.125 mg PO BID #60 tablet 08/19/18 03/28/19 03/27/19 Rx Active Meds: Active Medications Acetaminophen (Acetaminophen 325 Mg Tab) 650 mg PO Q6H PRN PRN Reason: Pain, Mild (1-3) Albuterol (Albuterol 2.5 Mg/3 Ml Nebu) 2.5 mg IH Q3HRT PRN PRN Reason: Shortness Of Breath Aspirin (Aspirin 81 Mg Tab Chew) 81 mg PO QDAY [facility]ASSAN Atorvastatin Calcium (Atorvastatin 40 Mg Tab) 40 mg PO DAILY [facility]AN Carvedilol (Carvedilol 3.125 Mg Tab) 3.125 mg PO BID [facility]AN Dextrose (Dextrose 50% In Water (25gm) 50 Ml Syringe) 50 ml IV Q30MIN PRN; Protocol PRN Reason: Hypoglycemia Escitalopram Oxalate (Escitalopram 10 Mg Tab) 10 mg PO DAILY [facility] Fish Oil ([place]-3 Fatty Acids/Fish Oil 1 Gram Cap) 1,000 mg PO QDAY GHSASAN Furosemide (Furosemide 20 Mg/2 Ml Inj) 20 mg IV 0600,1800 [facility] Hydromorphone HCl (Hydromorphone 0.5 Mg/0.5 Ml Inj) 0.25 mg IV Q4H PRN PRN Reason: Pain, Moderate (4-6) Cefepime HCl (Cefepime/Ns 2 Gm/100 Ml) 2 gm in 100 mls @ 200 mls/hr IV Q12H GHASSAN; Protocol Insulin Human Lispro (Insulin Lispro 100 Unit/Ml) 0 unit SUB-Q ACHS GHASSAN; P rotocol Levothyroxine Sodium (Levothyroxine 25 Mcg Tab) 25 mcg PO DAILY@0600 [facility] Nitroglycerin (Nitroglycerin 0.4 Mg Tab Subl) 0.4 mg SL Q5M PRN PRN Reason: Chest Pain Oxycodone/Acetaminophen (Oxycodone /Acetaminophen 5-325mg Tab) 1 tab PO Q16H PRN PRN Reason: Pain, Moderate (4-6) Sodium Chloride (Sodium Chloride 0.9% 10 Ml Flush Syringe) 10 ml IV BID GHASSAN Sodium Chloride (Sodium Chloride 0.9% 1000 Ml Iv Soln) 2,970 ml 30 ml/kg (2970 ml) IV ONCE [facility]ASSAN Sodium Chloride (Sodium Chloride 0.9% 10 Ml Flush Syringe) 10 ml IV PRN PRN PRN Reason: LINE FLUSH Tamsulosin HCl (Tamsulosin 0.4 Mg Cap) 0.4 mg PO BID [facility]AN Ticagrelor (Ticagrelor 90 Mg Tab) 90 mg PO BID [facility] Tramadol HCl (Tramadol 50 Mg Tab) 50 mg PO Q6H PRN PRN Reason: Pain, Moderate (4-6) Review of Systems ROS unobtainable: due to mental status Exam - Vital Signs Vital signs: Vital Signs Temp Pulse Resp BP Pulse Ox 98 F 108 H 16 120/62 92 04/12/22 04:51 04/12/22 04:51 04/12/22 04:51 04/12/22 04:51 04/12/22 04:51 Results - Lab Results 04/12/22 07:06 04/12/22 07:06 Most recent lab results Calcium 8.8 mg/dL (8.4-10.2) 04/12/22 07:06 Assessment and Plan 1. Acute kidney injury: Likely vasomotor ANJUM in the setting of decompensated CHF. Urine studies and Renal US ordered. On IV fluids. Monitor renal function. Avoid nephrotoxic agents. Meds dosage based on GFR. 2. FEN: Replete lytes as needed. Monitor lytes and volume status. 3. Sepsis 2/2 UTI: Abx per primary. 4. Acute on chronic HFrEF: Followed by Cards. 5. CAD s/p PCI / Sick sinus syndrome s/p PPM: S/p ablation of ventricular arrhythmia. Followed by Cards. Monitor. 6. DM. Monitor. 7. HTN: Monitor. 8. Acute metabolic encephalopathy, POA: Monitor. Subjective: Patient was seen and examined at the bedside. Examination: General appearance: well-developed, appears stated age, no distress HEENT: atraumatic, no icterus, pupils equal Neck: trachea midline Respiratory: ctab Heart: S1S2, regular, no murmur Abdomen: soft, bowel sounds heard, NT Integumentary: no obvious rash Neurologic: alert, confused, able to move extremities Ext: trace LE edema
[2022-04-12] MEDS: CEFEPIME/NS 2 GM/100 ML 2 GM/100 ML BAG IV SCH (14:45)
--- NOTE | 2022-04-12 16:02 | Consultation ---
History of Present Illness Consult date: 04/12/22 Requesting physician: COLLEEN AGUIRRE Consult reason: congestive heart failure History of present illness: Patient 77-year-old male with a past medical history of coronary artery disease s/p PCI, chronic systolic heart failure EF 30 to 35%, sick sinus syndrome s/p PPM, hypertension, diabetes, s/p ablation of ventricular arrhythmia, hypothyroid, BPH, who presents to the ED with a complaint of weakness and b ilateral lower extremity edema x2 days. Patient reports that he has had weakness and swelling in his legs x2 days however last night his system significantly worsened and reports that his weakness became so bad he could hardly walk. EMS was notified and patient transported to the ED. Patient also reports chills which began last night. In the ED patient did have run of SVT however was given adenosine and converted with normalization of heart rate. Patient was also found to have fever of 101.1 F, elevated BNP, elevated creatinine, elevated troponins, and UA appears consistent with UTI. Patient denies chest pain, nausea, vomiting, diaphoresis, orthopnea, or shortness of breath. Patient is followed by Dr. Christianson of our office. Cardiology is consulted for CHF and SVT. Past History Past Medical History: CAD, diabetes, heart failure, hypertension, hyperlipidemia, other (See HPI) Past Surgical History: Other (Pacemaker placement,see HPI) Social history: , lives with family. denies: smoking, alcohol abuse, prescription drug abuse Family history: diabetes, hypertension Medications and Allergies Allergies Allergy/AdvReac Type Severity Reaction Status Date / Time Sulfa (Sulfonamide Allergy Mild Unknown Verified 01/25/22 15:29 Antibiotics) Home Medications Medication Instructions Recorded Confirmed Last Taken Type AtorvaSTATin [Lipitor] 40 mg PO DAILY 03/18/18 03/28/19 03/27/19 History Escitalopram [Lexapro] 10 mg PO DAILY 03/18/18 03/28/19 03/27/19 History Metformin HCl [Glucophage] 500 mg PO BID 03/18/18 03/28/19 03/27/19 History Tamsulosin HCl [Flomax] 0.4 mg PO BID 03/18/18 03/28/19 03/27/19 History Furosemide [Lasix] 40 mg PO DAILY #60 tablet 03/21/18 03/28/19 04/24/18 11:00 Rx [place]-3S/Dha/Epa/Fish Oil [Fish 1 each PO DAILY 04/24/18 03/28/19 03/27/19 History Oil 1,200 mg Softgel] Aspirin [Aspirin BABY CHEW TAB] 81 mg PO QDAY tab.chew 04/25/18 03/28/19 03/27/19 Rx Escitalopram [Lexapro] 10 mg PO QDAY tablet 04/25/18 03/28/19 03/27/19 Rx Losartan [Cozaar] 100 mg PO QDAY tablet 04/25/18 03/28/19 03/27/19 Rx Ticagrelor [Brilinta] 90 mg PO BID #60 tablet 04/25/18 03/28/19 03/27/19 Rx Levothyroxine [Synthroid] 25 mcg PO DAILY@0600 #30 tablet 08/19/18 03/28/19 03/27/19 Rx carvediloL [Coreg] 3.125 mg PO BID #60 tablet 08/19/18 03/28/19 03/27/19 Rx Active Meds: Active Medications Acetaminophen (Acetaminophen 325 Mg Tab) 650 mg PO Q6H PRN PRN Reason: Pain, Mild (1-3) Albuterol (Albuterol 2.5 Mg/3 Ml Nebu) 2.5 mg IH Q3HRT PRN PRN Reason: Shortness Of Breath Aspirin (Aspirin 81 Mg Tab Chew) 81 mg PO QDAY GHASSAN Atorvastatin Calcium (Atorvastatin 40 Mg Tab) 40 mg PO DAILY GHASSAN Carvedilol (Carvedilol 3.125 Mg Tab) 25 mg PO BID GHASSAN Dextrose (Dextrose 50% In Water (25gm) 50 Ml Syringe) 50 ml IV Q30MIN PRN; Protocol PRN Reason: Hypoglycemia Escitalopram Oxalate (Escitalopram 10 Mg Tab) 10 mg PO DAILY GHASSAN Fish Oil ([place]-3 Fatty Acids/Fish Oil 1 Gram Cap) 1,000 mg PO QDAY [facility]ASSAN Furosemide (Furosemide 20 Mg/2 Ml Inj) 40 mg IV 0600,1800 [facility]AN Hydromorphone HCl (Hydromorphone 0.5 Mg/0.5 Ml Inj) 0.25 mg IV Q4H PRN PRN Reason: Pain, Moderate (4-6) Cefepime HCl (Cefepime/Ns 2 Gm/100 Ml) 2 gm in 100 mls @ 200 mls/hr IV Q12H GHASSAN; Protocol Last Admin: 04/12/22 14:45 Dose: 200 mls/hr Insulin Human Lispro (Insulin Lispro 100 Unit/Ml) 0 unit SUB-Q ACHS [facility]; Protocol Levothyroxine Sodium (Levothyroxine 25 Mcg Tab) 25 mcg PO DAILY@0600 [facility] Nitroglycerin (Nitroglycerin 0.4 Mg Tab Subl) 0.4 mg SL Q5M PRN PRN Reason: Chest Pain Oxycodone/Acetaminophen (Oxycodone /Acetaminophen 5-325mg Tab) 1 tab PO Q16H PRN PRN Reason: Pain, Moderate (4-6) Sodium Chloride (Sodium Chloride 0.9% 10 Ml Flush Syringe) 10 ml IV BID GHASSAN Sodium Chloride (Sodium Chloride 0.9% 1000 Ml Iv Soln) 2,970 ml 30 ml/kg (2970 ml) IV ONCE GHASSAN Sodium Chloride (Sodium Chloride 0.9% 10 Ml Flush Syringe) 10 ml IV PRN PRN PRN Reason: LINE FLUSH Tamsulosin HCl (Tamsulosin 0.4 Mg Cap) 0.4 mg PO BID GHASSAN Tramadol HCl (Tramadol 50 Mg Tab) 50 mg PO Q6H PRN PRN Reason: Pain, Moderate (4-6) Review of Systems Constitutional: chills, weakness Ears, nose, mouth and throat: no nasal discharge, no sinus pressure, no sinus pain Cardiovascular: edema, no chest pain, no orthopnea, no palpitations, no shortness of breath, no dyspnea on exertion Respiratory: no cough, no shortness of breath, no dyspnea on exertion Gastrointestinal: no abdominal pain, no nausea, no vomiting Musculoskeletal: no neck stiffness, no neck pain Integumentary: no rash, no pruritis, no redness Neurological: weakness, no head injury, no transient paralysis Psychiatric: no anxiety, no memory loss Endocrine: no cold intolerance, no heat intolerance Hematologic/Lymphatic: no easy bruising, no easy bleeding Physical Examination Vital Signs Temp Pulse Resp BP Pulse Ox 98 F 108 H 16 120/62 92 04/12/22 04:51 04/12/22 04:51 04/12/22 04:51 04/12/22 04:51 04/12/22 04:51 General appearance: no acute distress Neck: Positive: trachea midline Cardiac: Positive: Regular Rhythm, Tachycardia Lungs: Positive: Normal Breath Sounds Neuro: Positive: Grossly Intact Abdomen: Positive: Soft Skin: Negative: Rash, Suspicious Lesions, Ulceration Extremities: Present: upper extr. pulses, +1 Edema Results 04/12/22 07:06 04/12/22 07:06 Cardiac Enzymes 04/12/22 Range/Units 07:06 AST 25 (5-40) units/L CK-MB (CK-2) 2.6 (0.0-4.0) ng/mL Coagulation 04/12/22 Range/Units 07:06 PT 15.1 H (12.2-14.9) Sec. INR 1.07 (0.87-1.13) Lipids 04/12/22 Range/Units 07:06 Triglycerides 67 (2-149) mg/dL Cholesterol 97 (50-199) mg/dL HDL Cholesterol 54 (40-59) mg/dL Cholesterol/HDL Ratio 1.79 % CBC 04/12/22 Range/Units 07:06 WBC 12.7 H (4.5-11.0) K/mm3 RBC 4.10 (3.65-5.03) M/mm3 Hgb 12.4 (11.8-15.2) gm/dl Hct 37.8 (35.5-45.6) % Plt Count 257 (140-440) K/mm3 Lymph # (Auto) 1.3 (1.2-5.4) K/mm3 Cassia # (Auto) 1.1 H (0.0-0.8) K/mm3 Eos # (Auto) 0.0 (0.0-0.4) K/mm3 Baso # (Auto) 0.1 (0.0-0.1) K/mm3 Comprehensive Metabolic Panel 04/12/22 Range/Units 07:06 Sodium 135 L (137-145) mmol/L Potassium 4.7 (3.6-5.0) mmol/L Chloride 99.6 (98-107) mmol/L Carbon Dioxide 26 (22-30) mmol/L BUN 34 H (9-20) mg/dL Creatinine 1.8 H (0.8-1.3) mg/dL Glucose 168 H (75-100) mg/dL Calcium 8.8 (8.4-10.2) mg/dL AST 25 (5-40) units/L ALT 27 (7-56) units/L Alkaline Phosphatase 144 H (35-129) units/L Total Protein 6.0 L (6.3-8.2) g/dL Albumin 3.3 L (3.9-5) g/dL - Imaging and Cardiology Echo: pending, report reviewed EKG interpretations - Telemetry EKG Rhythm: Paced - EKG Ventricular dysrhythmias: ventricular premature com Repolarization changes or abnormalities: nonspecific abnormality, ST segment, and/or T wave Assessment and Plan Patient 77-year-old male with a past medical history of coronary artery disease s/p PCI, chronic systolic heart failure EF 30 to 35%, sick sinus syndrome s/p PPM, hypertension, diabetes, s/p ablation of ventricular arrhythmia, hyp othyroid, BPH, who presents to the ED with a complaint of weakness and bilateral lower extremity edema x2 days. Sepsis UTI Acute on chronic HFrEF ANJUM-nephrology following Coronary artery disease s/p PCI Sick sinus syndrome s/p PPM(Biotronik) S/p ablation of ventricular arrhythmia Hypothyroidism Hypertension Diabetes Echocardiogram 08/03/2021-EF 30 to 35%. Diffusely hypokinetic LV. LV diastolic dysfunction. Normal right ventricular systolic function. No pericardial effusion Nuclear medicine lexiscan stresstest 04/05/2018- non ischemic.gated spect: mild post stress lv systolic dysfunction. spect mpi: evidence of prior inferior wall myocardial infarction with a residual degree of ischemia. A significant degree of ischemia is not seen. Outpatient medications: Entresto 97 mg130 mg p.o. twice daily, carvedilol 25 mg p.o. twice daily, Aldactone 12.5 mg p.o. daily, atorvastatin 40 mg p.o. nightly, torsemide 20 mg p.o. every 48 hours, aspirin Plan: EKG shows atrial paced complexes 104 with multiple PVCs. Nonspecific T abnormalities. No acute ischemic changes. Troponin noted to be minimally elevated. Patient denies any complaints of chest pain Suspect troponin elevation in setting of sepsis, ANJUM, and acute on chronic CHF. Repeat troponin is pending Will resume outpatient carvedilol 25 mg p.o. daily, aspirin, atorvastatin 40 mg p.o. nightly Will hold Entresto and Aldactone due to elevated creatinine BNP noted to be elevated and patient has bilateral lower extremity edema will increase to Lasix 40 mg IV twice daily if okay with nephrology Strict I&O's, daily weights, repeat BMP in the a.m. with close monitoring of renal function Echo pending Covid PCR pending Discussed plan of care with patient and patient's who is at bedside both verbalized understanding and agreement Patient seen in conjunction with Dr. Baptiste who agrees with this plan of care - Patient Problems (1) Cardiorenal syndrome Current Visit: Yes Status: Acute Qualifiers: Heart failure presence: with heart failure (2) Elevated troponin Current Visit: Yes Status: Acute (3) Fever Current Visit: Yes Status: Acute (4) SVT (supraventricular tachycardia) Current Visit: Yes Status: Acute (5) Sepsis Current Visit: Yes Status: Acute (6) UTI (urinary tract infection) Current Visit: Yes Status: Acute Qualifiers: Encounter type: initial encounter (7) Weakness Current Visit: Yes Status: Acute (8) Acute on chronic systolic CHF (congestive heart failure) Current Visit: No Status: Acute (9) Sick sinus syndrome Current Visit: No Status: Acute (10) BPH (benign prostatic hyperplasia) Current Visit: No Status: Chronic Qualifiers: Lower urinary tract symptom presence: symptoms present (11) CAD (coronary artery disease) Current Visit: No Status: Chronic (12) Cardiac pacemaker in situ Current Visit: No Status: Chronic (13) Cardiomyopathy Current Visit: No Status: Chronic (14) Depression Current Visit: No Status: Chronic Qualifiers: Depression Type: unspecified Qualified Code(s): F32.9 - Major depressive disorder, single episode, unspecified (15) HLD (hyperlipidemia) Current Visit: No Status: Chronic Qualifiers: Hyperlipidemia type: mixed hyperlipidemia Qualified Code(s): E78.2 - Mixed hyperlipidemia (16) HTN (hypertension) Current Visit: No Status: Chronic Qualifiers: Hypertension type: primary hypertension Qualified Code(s): I10 - Essential (primary) hypertension (17) Stented coronary artery Current Visit: No Status: Chronic
[2022-04-12] MEDS: INSULIN LISPRO 100 UNIT/ML SUB-Q SCH (17:58)
[2022-04-12] MEDS ORDERED: FUROSEMIDE 20 MG/2 ML INJ IV SCH (18:00)
[2022-04-12] MEDS: FUROSEMIDE 20 MG/2 ML INJ IV SCH (19:58)
[2022-04-12] MEDS ORDERED: carvediloL 3.125 MG TAB PO SCH (22:00)
[2022-04-12] MEDS ORDERED: TICAGRELOR 90 MG TAB PO SCH (22:00)
[2022-04-12] MEDS: TAMSULOSIN 0.4 MG CAP PO SCH (23:55)
[2022-04-12] MEDS: carvediloL 25 MG TAB PO SCH (23:55)
[2022-04-13] MEDS: CEFEPIME/NS 2 GM/100 ML 2 GM/100 ML BAG IV SCH (04:31)
[2022-04-13 04:56] LABS: Hematocrit 36.7 % (35.5-45.6); Hemoglobin 11.7 gm/dl (11.8-15.2); Mean Corpuscular HGB Conc 32 % (32-34); Mean Corpuscular Volume 93 fl (84-94); Platelet Count 256 K/mm3 (140-440); Red Blood Count 3.96 M/mm3 (3.65-5.03); Red Cell Distribution Width 14.1 % (13.2-15.2)
[2022-04-13 05:12] LABS: Calcium 8.2 mg/dL (8.4-10.2)
[2022-04-13] MEDS: FUROSEMIDE 20 MG/2 ML INJ IV SCH ×2 (05:36→18:14)
[2022-04-13] MEDS: LEVOTHYROXINE 25 MCG TAB PO SCH (05:36)
[2022-04-13 06:15] LABS: Basophils % (Manual) 0 % (0.0-1.8); Eosinophils % (Manual) 0 % (0.0-4.3); Total Cells Counted 100
[2022-04-13 06:18] LABS: Platelet Estimate Consistent w Auto
[2022-04-13 08:31] LABS: Creatinine,Urine 71.4 mg/dL (0.1-20.0); Protein/Creatinine Ratio,Urine 0.91
[2022-04-13] MEDS: INSULIN LISPRO 100 UNIT/ML SUB-Q SCH ×5 (09:52→22:00)
[2022-04-13] MEDS: TAMSULOSIN 0.4 MG CAP PO SCH ×2 (09:53→21:59)
[2022-04-13] MEDS: carvediloL 25 MG TAB PO SCH ×2 (09:53→21:59)
[2022-04-13] MEDS: ASPIRIN 81 MG TAB CHEW PO SCH (09:53)
[2022-04-13] MEDS ORDERED: [UNRECOGNIZED DRUG - OTHER] PO SCH (10:00)
[2022-04-13] MEDS ORDERED: DHA PO SCH (10:00)
[2022-04-13] MEDS ORDERED: EPA PO SCH (10:00)
[2022-04-13] MEDS ORDERED: OMEGA PO SCH (10:00)
[2022-04-13] MEDS ORDERED: LOSARTAN 50 MG TAB PO SCH (10:00)
[2022-04-13] MEDS ORDERED: FISH OIL PO SCH (10:00)
[2022-04-13] MEDS: OMEGA-3 FATTY ACIDS/FISH OIL 1 GRAM CAP PO SCH (10:09)
[2022-04-13] MEDS: ESCITALOPRAM 10 MG TAB PO SCH (10:09)
--- NOTE | 2022-04-13 10:15 | Ultrasound Report ---
ULTRASOUND RENAL INDICATION: Acute renal failure.. COMPARISON: No relevant prior imaging study available. FINDINGS: RIGHT KIDNEY: Size: 13.7 x 6.9 cm. Echogenicity: Normal. Parenchymal thickness: Normal. Hydronephrosis: Mild. Cyst or mass: None. Stones: None. LEFT KIDNEY: Size: 10.6 x 6.5 cm. Echogenicity: Normal. Parenchymal thickness: Normal. Hydronephrosis: Mild. Cyst or mass: A 2 cm lower pole cyst is noted with simple appearance. No other solid or cystic lesion s. Stones: None. Urinary Bladder: Well-distended without a significant abnormality. Free Fluid: None. Additional Findings: None. IMPRESSION 1. Mild hydronephrosis without other acute findings. 2. Additional findings as above. Signer Name: Mark Verdugo MD Signed: 04/13/2022 10:10 AM Workstation Name: [facility]
[2022-04-13] MEDS ORDERED: AMIODARONE 900 MG in DEXTROSE 5% IN WATER 482 ML IV SCH (10:45)
[2022-04-13] MEDS ORDERED: AMIODARONE 150 MG in DEXTROSE 5% IN WATER 97 ML IV SCH (10:45)
--- NOTE | 2022-04-13 10:59 | Progress Note ---
Assessment and Plan 1. Acute kidney injury: Likely vasomotor ANJUM in the setting of decompensated CHF. Renal US showed mild hydronephrosis ?significance. Monitor renal function. Creatinine leveled off. Avoid nephrotoxic agents. Meds dosage based on GFR. 2. FEN: Replete lytes as needed. Monitor lytes and volume status. 3. Sepsis 2/2 UTI: Abx per primary. 4. Acute on chronic HFrEF: Followed by Cards. 5. CAD s/p PCI / Sick sinus syndrome s/p PPM: S/p ablation of ventricular arrhythmia. Followed by Cards. Monitor. 6. DM. Monitor. 7. HTN: Monitor. 8. Acute metabolic encephalopathy, POA: Monitor. Subjective: Patient was seen and examined at the bedside. Examination: General appearance: well-developed, appears stated age, no distress HEENT: atraumatic, no icterus, pupils equal Neck: trachea midline Respiratory: ctab Heart: S1S2, regular, no murmur Abdomen: soft, bowel sounds heard, NT Integumentary: no obvious rash Neurologic: alert, confused, able to move extremities Ext: trace LE edema Subjective Date of service: 04/13/22 Objective - Vital Signs Vital signs: Vital Signs - 12hr 04/12/22 04/13/22 04/13/22 23:56 01:37 04:25 Pulse Rate 112 H 99 H 97 H Pulse Rate [ From Monitor] Pulse Rate [ Left Brachial] Respiratory 18 18 18 Rate Blood Pressure Blood Pressure 119/70 105/51 121/77 [Right] O2 Sat by Pulse 98 98 99 Oximetry 04/13/22 04/13/22 04/13/22 05:30 06:00 06:40 Pulse Rate 93 H Pulse Rate [ 93 H From Monitor] Pulse Rate [ 93 H Left Brachial] Respiratory 21 21 Rate Blood Pressure 124/75 Blood Pressure [Right] O2 Sat by Pulse 94 94 Oximetry 04/13/22 04/13/22 07:00 09:53 Pulse Rate 141 H Pulse Rate [ From Monitor] Pulse Rate [ 88 Left Brachial] Respiratory 16 Rate Blood Pressure 127/67 129/88 Blood Pressure [Right] O2 Sat by Pulse 92 Oximetry - Lab 04/13/22 04:35 04/13/22 04:35 Most recent lab results Calcium 8.2 mg/dL (8.4-10.2) L 04/13/22 04:35 Urine Creatinine 71.4 mg/dL (0.1-20.0) H 04/13/22 06:15 Urine Sodium 36 mmol/L 04/13/22 06:15 Urine Total Protein 65 mg/dL (5-11.8) H 04/13/22 06:15 Medications & Allergies - Medications Allergies/Adverse Reactions: Allergies Sulfa (Sulfonamide Antibiotics) Allergy (Mild, Verified 04/13/22 07:39) Unknown Home Medications: Home Medications Medication Instructions Recorded Confirmed Last Taken Type AtorvaSTATin [Lipitor] 40 mg PO DAILY 03/18/18 03/28/19 04/11/22 09:00 History Escitalopram [Lexapro] 10 mg PO DAILY 03/18/18 03/28/19 04/11/22 09:00 History Metformin HCl [Glucophage] 500 mg PO BID 03/18/18 03/28/19 04/11/22 22:00 His tory Tamsulosin HCl [Flomax] 0.4 mg PO BID 03/18/18 03/28/19 04/11/22 22:00 History [place]-3S/Dha/Epa/Fish Oil [Fish 1 each PO DAILY 04/24/18 03/28/19 04/11/22 09:00 History Oil 1,200 mg Softgel] Aspirin [Aspirin BABY CHEW TAB] 81 mg PO QDAY tab.chew 04/25/18 03/28/19 04/13/22 09:00 Rx Losartan [Cozaar] 100 mg PO QDAY tablet 04/25/18 03/28/19 04/11/22 09:00 Rx Ticagrelor [Brilinta] 90 mg PO BID #60 tablet 04/25/18 03/28/19 04/11/22 22:00 Rx Levothyroxine [Synthroid] 25 mcg PO DAILY@0600 #30 tablet 08/19/18 03/28/19 04/11/22 09:00 Rx carvediloL [Coreg] 3.125 mg PO BID #60 tablet 08/19/18 03/28/19 04/11/22 22:00 Rx Active Medications: Generic Name Dose Route Start Last Admin Trade Name Freq PRN Reason Stop Dose Admin Albuterol 2.5 mg 04/12/22 12:06 Albuterol 2.5 Mg/3 Ml Nebu IH Q3HRT PRN Shortness Of Breath Aspirin 81 mg 04/13/22 10:00 04/13/22 09:53 Aspirin 81 Mg Tab Chew PO 81 mg QDAY GHASSAN Administration Atorvastatin Calcium 40 mg 04/13/22 10:00 04/13/22 09:53 Atorvastatin 40 Mg Tab PO 40 mg DAILY GHASSAN Administration Carvedilol 25 mg 04/12/22 22:00 04/13/22 09:53 Carvedilol 25 Mg Tab PO 25 mg BID GHASSAN Administration Dextrose 50 ml 04/12/22 13:00 Dextrose 50% In Water (25gm) 50 Ml Syringe IV Q30MIN PRN Hypoglycemia Protocol Enoxaparin Sodium 100 mg 04/13/22 11:00 Enoxaparin 100 Mg/1 Ml Inj 1 mg/kg (100 mg) SUB-Q Q12HR [facility] Protocol Escitalopram Oxalate 10 mg 04/13/22 10:00 04/13/22 10:09 Escitalopram 10 Mg Tab PO 10 mg DAILY GHASSAN Administration Fish Oil 1,000 mg 04/13/22 10:00 04/13/22 10:09 [place]-3 Fatty Acids/Fish Oil 1 Gram Cap PO 1,000 mg QDAY GHASSAN Administration Furosemide 40 mg 04/12/22 18:00 04/13/22 05:36 Furosemide 20 Mg/2 Ml Inj IV 40 mg 0600,1800 GHASSAN Administration Hydromorphone HCl 0.25 mg 04/12/22 12:06 Hydromorphone 0.5 Mg/0.5 Ml Inj IV Q4H PRN Pain, Moderate (4-6) Cefepime HCl 2 gm in 100 mls @ 200 mls/hr 04/12/22 14:00 04/13/22 04:31 Cefepime/Ns 2 Gm/100 Ml IV 200 mls/hr Q12H [facility]ASSAN Administration Protocol Amiodarone HCl 900 mg/ 500 mls @ 33.333 mls/hr 04/13/22 10:45 Dextrose IV DIRECT GHASSAN Protocol 1 MG/MIN Amiodarone HCl 150 mg/ 100 mls @ 600 mls/hr 04/13/22 10:45 Dextrose IV 04/13/22 11:45 ONCE@1045 [facility]AN Insulin Human Lispro 0 unit 04/12/22 16:30 04/13/22 09:52 Insulin Lispro 100 Unit/Ml SUB-Q 2 unit ACHS [facility] Administration Protocol Levothyroxine Sodium 25 mcg 04/13/22 06:00 04/13/22 05:36 Levothyroxine 25 Mcg Tab PO 25 mcg DAILY@0600 [facility]AN Administration Oxycodone/Acetaminophen 1 tab 04/12/22 12:06 Oxycodone /Acetaminophen 5-325mg Tab PO Q16H PRN Pain, Moderate (4-6) Sodium Chloride 10 ml 04/12/22 22:00 04/13/22 09:54 Sodium Chloride 0.9% 10 Ml Flush Syringe IV 10 ml BID GHASSAN Administration Sodium Chloride 2,970 ml 04/12/22 13:00 Sodium Chloride 0.9% 1000 Ml Iv Soln 30 ml/kg (2970 ml) IV ONCE GHASSAN Tamsulosin HCl 0.4 mg 04/12/22 22:00 04/13/22 09:53 Tamsulosin 0.4 Mg Cap PO 0.4 mg BID GHASSAN Administration
--- NOTE | 2022-04-13 12:37 | Progress Note ---
Assessment and Plan Patient 77-year-old male with a past medical history of coronary artery disease s/p PCI, chronic systolic heart failure EF 30 to 35%, sick sinus syndrome s/p PPM, hypertension, diabetes, s/p ablation of ventricular arrhythmia, hypothyroid, BPH, who presents to the ED with a complaint of weakness and bilateral lower extremity edema x2 days. Sepsis UTI Acute on chronic HFrEF ANJUM-nephrology following Coronary artery disease s/p PCI Sick sinus syndrome s/p PPM(Biotronik) S/p ablation of ventricular arrhythmia Hypothyroidism Hypertension Diabetes Echo 04/12/2022-severe global hypokinesis of LV. EF 20 to 25%. Left ventricle is mildly dilated. Mild diastolic dysfunction is present impaired relaxation pattern. No pericardial effusion Echocardiogram 08/03/2021-EF 30 to 35%. Diffusely hypokinetic LV. LV diastolic dysfunction. Normal right ventricular systolic function. No pericardial effusion Nuclear medicine lexiscan stresstest 04/05/2018- non ischemic.gated spect: mild post stress lv systolic dysfunction. spect mpi: evidence of prior inferior wall myocardial infarction with a residual degree of ischemia. A significant degree of ischemia is not seen. Outpatient medications: Entresto 97 mg130 mg p.o. twice daily, carvedilol 25 mg p.o. twice daily, Aldactone 12.5 mg p.o. daily, atorvastatin 40 mg p.o. nightly, torsemide 20 mg p.o. every 48 hours, aspirin Plan: EKG shows atrial paced complexes 104 with multiple PVCs. Nonspecific T abnormalities. No acute ischemic changes. Troponin noted to be minimally elevated. Patient denies any complaints of chest pain Suspect troponin elevation in setting of sepsis, ANJUM, and acute on chronic CHF. Continue carvedilol 25 mg p.o. daily, aspirin, atorvastatin 40 mg p.o. nightly Will hold Entresto and Aldactone due to elevated creatinine BNP noted to be elevated and patient has bilateral lower extremity edema. Conitnue Lasix 40 mg IV twice daily if okay with nephrology Strict I&O's, daily weights, repeat BMP in the a.m. with close monitoring of renal function Covid PCR pending Patient had episode of a flutter with RVR. Will initiate IV amiodarone bolus and drip Initiate Lovenox for anticoagulation Patient seen in conjunction with Dr. Baptiste who agrees with this plan of care - Patient Problems (1) Cardiorenal syndrome Current Visit: Yes Status: Acute Qualifiers: Heart failure presence: with heart failure (2) Elevated troponin Current Visit: Yes Status: Acute (3) Fever Current Visit: Yes Status: Acute (4) SVT (supraventricular tachycardia) Current Visit: Yes Status: Acute (5) Sepsis Current Visit: Yes Status: Acute (6) UTI (urinary tract infection) Current Visit: Yes Status: Acute Qualifiers: Encounter type: initial encounter (7) Weakness Current Visit: Yes Status: Acute (8) Acute on chronic systolic CHF (congestive heart failure) Current Visit: No Status: Acute (9) Sick sinus syndrome Current Visit: No Status: Acute (10) BPH (benign prostatic hyperplasia) Current Visit: No Status: Chronic Qualifiers: Lower urinary tract symptom presence: symptoms present (11) CAD (coronary artery disease) Current Visit: No Status: Chronic (12) Cardiac pacemaker in situ Current Visit: No Status: Chronic (13) Cardiomyopathy Current Visit: No Status: Chronic (14) Depression Current Visit: No Status: Chronic Qualifiers: Depression Type: unspecified Qualified Code(s): F32.9 - Major depressive disorder, single episode, unspecified (15) HLD (hyperlipidemia) Current Visit: No Status: Chronic Qualifiers: Hyperlipidemia type: mixed hyperlipidemia Qualified Code(s): E78.2 - Mixed hyperlipidemia (16) HTN (hypertension) Current Visit: No Status: Chronic Qualifiers: Hypertension type: primary hypertension Qualified Code(s): I10 - Essential (primary) hypertension (17) Stented coronary artery Current Visit: No Status: Chronic Subjective Date of service: 04/13/22 Principal diagnosis: Sepsis, acute on chronic HFrEF Interval history: Patient resting in bed in no acute distress Patient currently a flutter with RVR rate 130s to 150s Objective Vital Signs Temp Pulse Pulse Pulse Resp BP BP 04/13/22 11:00 99 H 22 109/52 04/13/22 10:00 142 H 13 128/94 04/13/22 09:53 141 H 129/88 04/13/22 09:00 146 H 21 131/77 04/13/22 08:00 96 H 16 04/13/22 07:43 121/77 04/13/22 07:00 88 16 127/67 04/13/22 06:40 93 H 21 04/13/22 06:00 93 H 21 124/75 04/13/22 05:30 93 H 04/13/22 04:25 97 H 18 121/77 04/13/22 04:00 92 H 18 89/50 04/13/22 03:00 135 H 16 76/42 04/13/22 02:00 136 H 18 95/51 04/13/22 01:37 99 H 18 105/51 04/13/22 01:00 99 H 23 105/61 04/13/22 00:00 110 H 23 139/82 04/12/22 23:56 112 H 18 119/70 04/12/22 23:00 110 H 13 156/90 04/12/22 22:00 109 H 28 H 130/84 04/12/22 21:32 110 H 18 115/72 04/12/22 21:00 109 H 22 133/85 04/12/22 20:00 106 H 23 127/79 04/12/22 19:59 98.9 F 103 H 16 127/79 04/12/22 19:00 109 H 15 151/78 04/12/22 18:00 110 H 23 151/78 04/12/22 17:31 106 H 20 151/78 04/12/22 17:00 111 H 15 151/78 04/12/22 16:00 104 H 19 143/74 04/12/22 15:00 103 H 19 141/92 04/12/22 14:55 104 H 19 146/89 04/12/22 14:00 124 H 21 135/86 04/12/22 13:00 97 H 20 104/53 Pulse Ox 04/13/22 11:00 96 04/13/22 10:00 96 04/13/22 09:53 04/13/22 09:00 97 04/13/22 08:00 94 04/13/22 07:43 84 04/13/22 07:00 92 04/13/22 06:40 94 04/13/22 06:00 94 04/13/22 05:30 04/13/22 04:25 99 04/13/22 04:00 04/13/22 03:00 04/13/22 02:00 04/13/22 01:37 98 04/13/22 01:00 04/13/22 00:00 04/12/22 23:56 98 04/12/22 23:00 98 04/12/22 22:00 95 04/12/22 21:32 98 04/12/22 21:00 96 04/12/22 20:00 95 04/12/22 19:59 96 04/12/22 19:00 93 04/12/22 18:00 95 04/12/22 17:31 100 04/12/22 17:00 94 04/12/22 16:00 96 04/12/22 15:00 95 04/12/22 14:55 100 04/12/22 14:00 98 04/12/22 13:00 94 - Physical Examination General: No Apparent Distress Neck: Positive: trachea midline Cardiac: Positive: Irregularly Regular Neuro: Positive: Grossly Intact Abdomen: Positive: Soft Skin: Negative: Rash, Suspicious Lesions, Ulceration Extremities: Present: upper extr. pulses, +1 Edema - Labs and Meds Cardiac Enzymes 04/13/22 Range/Units 04:35 AST 40 (5-40) units/L CBC 04/13/22 Range/Units 04:35 WBC 11.4 H (4.5-11.0) K/mm3 RBC 3.96 (3.65-5.03) M/mm3 Hgb 11.7 L (11.8-15.2) gm/dl Hct 36.7 (35.5-45.6) % Plt Count 256 (140-440) K/mm3 Comprehensive Metabolic Panel 04/13/22 Range/Units 04:35 Sodium 137 (137-145) mmol/L Potassium 4.0 (3.6-5.0) mmol/L Chloride 98.8 (98-107) mmol/L Carbon Dioxide 26 (22-30) mmol/L BUN 38 H (9-20) mg/dL Creatinine 1.8 H (0.8-1.3) mg/dL Glucose 163 H (75-100) mg/dL Calcium 8.2 L (8.4-10.2) mg/dL AST 40 (5-40) units/L ALT 32 (7-56) units/L Alkaline Phosphatase 157 H (35-129) units/L Total Protein 5.7 L (6.3-8.2) g/dL Albumin 3.0 L (3.9-5) g/dL - Imaging and Cardiology Echo: report reviewed - Telemetry EKG Rhythm: Atrial Flutter - EKG Supraventricular dysrhythmia: atrial flutter Ventricular dysrhythmias: ventricular premature com Repolarization changes or abnormalities: nonspecific abnormality, ST segment, and/or T wave
[2022-04-13] MEDS: ENOXAPARIN 100 MG/1 ML INJ SUB-Q SCH ×2 (12:42→21:59)
--- NOTE | 2022-04-13 14:55 | Progress Note ---
Assessment and Plan Assessment and plan: 77 YO Male with HTN, DM, BPH, CAD, Systolic CHF(EF 20%), HLD, NC, Cardiomyopathy S/P Pacemaker Placement, MDD presents to ED for evaluation. Patient reports "I feel weak and my legs are swollen". Patient states that he has experienced generalized weakness, decreased exercise tolerance over the past 1 week with persistent and worsening symptoms over the past few days. Patient knowledges decreased exercise tolerance, dyspnea on exertion, dyspnea at rest, orthopnea, paroxysmal nocturnal dyspnea, as well as subjective fever. EMS was notified and upon arrival the patient was found to be in distress and subsequently transported to [facility] for further care and evaluation of the aforementioned symptoms. The patient was seen and evaluated in the emergency department. All lab and imaging studies reviewed. Patient underwent EKG and was also found to have supraventricular tachycardia and was treated with adenosine with normalization of heart rate. Patient found to have fever to 101.1 F as well as urinary tract infection complicated by sepsis, as well as clinical symptoms consistent with CHF decompensation as well as type II NSTEMI and cardiorenal syndrome. Patient initiated on sepsis protocol and admitted to IMCU due to increased risk of worsening symptoms and for medical stabilization. Patient also initiated on CHF protocol. Cardiology team consulted in ED. Patient knowledges fever but denies chills, chest pain, productive cough, skin rash, recent contact, or known exposure to COVID-19. Prior admission on 09/09/2018 reviewed. All medication listed at time of admission has been reconciled. Advanced care planning conducted in ED. Echo 04/12/2022-severe global hypokinesis of LV. EF 20 to 25%. Left ventricle is mildly dilated. Mild diastolic dysfunction is present impaired relaxation pattern. No pericardial effusion Echocardiogram 08/03/2021-EF 30 to 35%. Diffusely hypokinetic LV. LV diastolic dysfunction. Normal right ventricular systolic function. No pericardial effusion Nuclear medicine lexiscan stresstest 04/05/2018- non ischemic.gated spect: mild post stress lv systolic dysfunction. spect mpi: evidence of prior inferior wall myocardial infarction with a residual degree of ischemia. A significant degree of ischemia is not seen. Outpatient medications: Entresto 97 mg130 mg p.o. twice daily, carvedilol 25 mg p.o. twice daily, Aldactone 12.5 mg p.o. daily, atorvastatin 40 mg p.o. nightly, torsemide 20 mg p.o. every 48 hours, aspirin 04/13: Patient seen and examined, clinically stable, discussed with cardiology team IV amiodarone started in addition to anticoagulation. Patient was severely depressed cardiac function EF of 20 to 25%. Will await COVID testing and if negative will transfer patient to telemetry. Otherwise continue antibiotics for sepsis management. Plan of care discussed with the patient in detail advance care directive discussion had with the patient in detail patient maintains a full code at this time. (1) Atrial Flutter Patient had episode of a flutter with RVR. Will initiate IV amiodarone bolus and drip Initiate Lovenox for anticoagulation (2) Sepsis Current Visit: Yes Status: Acute Qualifiers: Severe sepsis acute organ dysfunction type: acute renal failure Plan to address problem: Sepsis protocol: IV antibiotic therapy, chest x-ray, urinalysis, IV fluid resuscitation therapy, IV antibiotic therapy, blood culture, serial lactic acid level, maintain mean arterial pressure greater than equal to 65, monitor fluid balance, monitor urine output every shift (3) NSTEMI (non-ST elevated myocardial infarction) Current Visit: Yes Status: Acute Plan to address problem: Type II NSTEMI: Serial cardiac enzymes, EKG, telemetry monitoring, echocardiogram ordered and pending at time of admission, cardiology team consulted. (4) Cardiorenal syndrome Current Visit: Yes Status: Acute Qualifiers: Heart failure presence: with heart failure Plan to address problem: Urine electrolytes, nephrology team consulted, monitor urine output every shift Coronary artery disease s/p PCI-S/p ablation of ventricular arrhythmia Sick sinus syndrome s/p PPM(Biotronik) (5) Acute Cystitis Current Visit: Yes Status: Acute Qualifiers: Encounter type: initial encounter Plan to address problem: Urinalysis, IV antibiotic therapy, repeat CBC in AM. (6) Acute on chronic systolic CHF (congestive heart failure) Current Visit: No Status: Acute Plan to address problem: Strict I's/O, monitor urine output every shift, daily weight, afterload reduction, blood pressure control, supplemental oxygen, pulse oximetry, echocardiogram ordered and pending at time of admission, diuresis with Lasix. Monitor fluid balance. (7) NSVT (nonsustained ventricular tachycardia) Current Visit: No Status: Acute Plan to address problem: Patient treated with adenosine with conversion back to sinus rhythm. Cardiology team consulted, continue telemetry monitoring. (8) BPH (benign prostatic hyperplasia) Current Visit: No Status: Chronic Qualifiers: Lower urinary tract symptom presence: symptoms present Plan to address problem: Continue medical management, outpatient urology follow-up. (9) Depression Current Visit: No Status: Chronic Qualifiers: Depression Type: unspecified Qualified Code(s): F32.9 - Major depressive disorder, single episode, unspecified Plan to address problem: Continue medical management, supportive care. No acute exacerbation at this time, outpatient psychiatry follow-up. (10) Diabetes Current Visit: No Status: Chronic Plan to address problem: Consistent carbohydrate diet, Accu-Chek, insulin protocol, hypoglycemia protocol. (11) HLD (hyperlipidemia) Current Visit: No Status: Chronic Qualifiers: Hyperlipidemia type: mixed hyperlipidemia Qualified Code(s): E78.2 - Mixed hyperlipidemia Plan to address problem: Statin therapy, supportive care, low-cholesterol diet. (12) HTN (hypertension) Current Visit: No Status: Chronic Qualifiers: Hypertension type: primary hypertension Qualified Code(s): I10 - Essential (primary) hypertension Plan to address problem: Monitor blood pressure every shift, continue medical management. 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 Patient acknowledges understanding and agreement with care plan, +30 minutes. (18) Preventative health care Current Visit: Yes Status: Acute Plan to address problem: Patient counseled regarding dietary compliance, fluid restriction compliance, outpatient follow-up with primary care physician for all age and risk factor appropriate screening test. +30 minutes. History Interval history: Patient seen and examined admitted yesterday due to generalized weakness lower extremity and also swelling. This morning remains in atrial flutter denies any chest pain Hospitalist Physical - Physical exam Narrative exam: VITAL SIGNS: Reviewed. GENERAL: The patient appears normally developed, Vital signs as documented. HEAD: No signs of head trauma. EYES: Pupils are equal. Extraocular motions intact. EARS: Hearing grossly intact. MOUTH: Oropharynx is normal. NECK: No adenopathy, no JVD. CHEST: Chest with clear breath sounds bilaterally. No wheezes, rales, or rhonchi. CARDIAC: Irregularly irregular rate and rhythm. S1 and S2, without murmurs, gallops, or rubs. VASCULAR: No Edema. Peripheral pulses normal and equal in all extremities. ABDOMEN: Soft, non tender and non distended. No rebound or guarding, and no masses palpated. Bowel Sounds normal. MUSCULOSKELETAL: Good range of motion of all major joints. Extremities without clubbing, cyanosis. +edema. NEUROLOGIC EXAM: Alert and oriented x 3 No focal sensory or strength deficits. Speech normal. Follows commands. PSYCHIATRIC: Mood normal. SKIN: detail exam as documented in skin assessment - Constitutional Vitals: Temp Pulse Resp BP Pulse Ox 98.9 F 99 H 22 109/52 96 04/12/22 19:59 04/13/22 11:00 04/13/22 11:00 04/13/22 11:00 04/13/22 11:00 General appearance: Present: no acute distress HEART Score - HEART Score Troponin: Troponin T 0.054 ng/mL (0.00-0.029) H 04/12/22 16:43 Results - Labs CBC & Chem 7: 04/13/22 04:35 04/13/22 04:35 Labs: Laboratory Last Values WBC 11.4 K/mm3 (4.5-11.0) H 04/13/22 04:35 RBC 3.96 M/mm3 (3.65-5.03) 04/13/22 04:35 Hgb 11.7 gm/dl (11.8-15.2) L 04/13/22 04:35 Hct 36.7 % (35.5-45.6) 04/13/22 04:35 MCV 93 fl (84-94) 04/13/22 04:35 MCH 30 pg (28-32) 04/13/22 04:35 MCHC 32 % (32-34) 04/13/22 04:35 RDW 14.1 % (13.2-15.2) 04/13/22 04:35 Plt Count 256 K/mm3 (140-440) 04/13/22 04:35 Lymph % (Auto) 9.9 % (13.4-35.0) L 04/12/22 07:06 Richardson % (Auto) 8.6 % (0.0-7.3) H 04/12/22 07:06 Eos % (Auto) 0.1 % (0.0-4.3) 04/12/22 07:06 Baso % (Auto) 0.6 % (0.0-1.8) 04/12/22 07:06 Lymph # (Auto) 1.3 K/mm3 (1.2-5.4) 04/12/22 07:06 Richardson # (Auto) 1.1 K/mm3 (0.0-0.8) H 04/12/22 07:06 Eos # (Auto) 0.0 K/mm3 (0.0-0.4) 04/12/22 07:06 Baso # (Auto) 0.1 K/mm3 (0.0-0.1) 04/12/22 07:06 Add Manual Diff Complete 04/13/22 04:35 Total Counted 100 04/13/22 04:35 Seg Neutrophils % 80.8 % (40.0-70.0) H 04/12/22 07:06 Seg Neuts % (Manual) 89.0 % (40.0-70.0) H 04/13/22 04:35 Band Neutrophils % 0 % 04/13/22 04:35 Lymphocytes % (Manual) 6.0 % (13.4-35.0) L 04/13/22 04:35 Reactive Lymphs % (Man) 0 % 04/13/22 04:35 Monocytes % (Manual) 5.0 % (0.0-7.3) 04/13/22 04:35 Eosinophils % (Manual) 0 % (0.0-4.3) 04/13/22 04:35 Basophils % (Manual) 0 % (0.0-1.8) 04/13/22 04:35 Metamyelocytes % 0 % 04/13/22 04:35 Myelocytes % 0 % 04/13/22 04:35 Promyelocytes % 0 % 04/13/22 04:35 Blast Cells % 0 % 04/13/22 04:35 Nucleated RBC % Not Reportable 04/13/22 04:35 Seg Neutrophils # 10.3 K/mm3 (1.8-7.7) H 04/12/22 07:06 Seg Neutrophils # Man 10.1 K/mm3 (1.8-7.7) H 04/13/22 04:35 Band Neutrophils # 0.0 K/mm3 04/13/22 04:35 Lymphocytes # (Manual) 0.7 K/mm3 (1.2-5.4) L 04/13/22 04:35 Abs React Lymphs (Man) 0.0 K/mm3 04/13/22 04:35 Monocytes # (Manual) 0.6 K/mm3 (0.0-0.8) 04/13/22 04:35 Eosinophils # (Manual) 0.0 K/mm3 (0.0-0.4) 04/13/22 04:35 Basophils # (Manual) 0.0 K/mm3 (0.0-0.1) 04/13/22 04:35 Metamyelocytes # 0.0 K/mm3 04/13/22 04:35 Myelocytes # 0.0 K/mm3 04/13/22 04:35 Promyelocytes # 0.0 K/mm3 04/13/22 04:35 Blast Cells # 0.0 K/mm3 04/13/22 04:35 WBC Morphology Not Reportable 04/13/22 04:35 Hypersegmented Neuts Not Reportable 04/13/22 04:35 Hyposegmented Neuts Not Reportable 04/13/22 04:35 Hypogranular Neuts Not Reportable 04/13/22 04:35 Smudge Cells Not Reportable 04/13/22 04:35 Toxic Granulation Not Reportable 04/13/22 04:35 Toxic Vacuolation Not Reportable 04/13/22 04:35 Dohle Bodies Not Reportable 04/13/22 04:35 Pelger-Huet Anomaly Not Reportable 04/13/22 04:35 Seth Rods Not Reportable 04/13/22 04:35 Platelet Estimate Consistent w auto 04/13/22 04:35 Clumped Platelets Not Reportable 04/13/22 04:35 Plt Clumps, EDTA Not Reportable 04/13/22 04:35 Large Platelets Not Reportable 04/13/22 04:35 Giant Platelets Not Reportable 04/13/22 04:35 Platelet Satelliting Not Reportable 04/13/22 04:35 Plt Morphology Comment Not Reportable 04/13/22 04:35 RBC Morphology Not Reportable 04/13/22 04:35 Dimorphic RBCs Not Reportable 04/13/22 04:35 Polychromasia Not Reportable 04/13/22 04:35 Hypochromasia Not Reportable 04/13/22 04:35 Poikilocytosis Not Reportable 04/13/22 04:35 Anisocytosis Not Reportable 04/13/22 04:35 Microcytosis Not Reportable 04/13/22 04:35 Macrocytosis Not Reportable 04/13/22 04:35 Spherocytes Not Reportable 04/13/22 04:35 Pappenheimer Bodies Not Reportable 04/13/22 04:35 Sickle Cells Not Reportable 04/13/22 04:35 Target Cells Not Reportable 04/13/22 04:35 Tear Drop Cells Not Reportable 04/13/22 04:35 Ovalocytes Not Reportable 04/13/22 04:35 Helmet Cells Not Reportable 04/13/22 04:35 Martinez-Traver Bodies Not Reportable 04/13/22 04:35 [place] Rings Not Reportable 04/13/22 04:35 Jj Cells Not Reportable 04/13/22 04:35 Bite Cells Not Reportable 04/13/22 04:35 Crenated Cell Not Reportable 04/13/22 04:35 Elliptocytes Not Reportable 04/13/22 04:35 Acanthocytes (Spur) Not Reportable 04/13/22 04:35 Rouleaux Not Reportable 04/13/22 04:35 Hemoglobin C Crystals Not Reportable 04/13/22 04:35 Schistocytes Not Reportable 04/13/22 04:35 Malaria parasites Not Reportable 04/13/22 04:35 Abram Bodies Not Reportable 04/13/22 04:35 Hem Pathologist Commnt No 04/13/22 04:35 PT 15.1 Sec. (12.2-14.9) H 04/12/22 07:06 INR 1.07 (0.87-1.13) 04/12/22 07:06 Sodium 137 mmol/L (137-145) 04/13/22 04:35 Potassium 4.0 mmol/L (3.6-5.0) 04/13/22 04:35 Chloride 98.8 mmol/L (98-107) 04/13/22 04:35 Carbon Dioxide 26 mmol/L (22-30) 04/13/22 04:35 Anion Gap 16 mmol/L 04/13/22 04:35 BUN 38 mg/dL (9-20) H 04/13/22 04:35 Creatinine 1.8 mg/dL (0.8-1.3) H 04/13/22 04:35 Estimated GFR 37 ml/min 04/13/22 04:35 BUN/Creatinine Ratio 21 % 04/13/22 04:35 Glucose 163 mg/dL (75-100) H 04/13/22 04:35 Lactic Acid 1.70 mmol/L (0.7-2.0) 04/12/22 16:55 Calcium 8.2 mg/dL (8.4-10.2) L 04/13/22 04:35 Total Bilirubin 0.40 mg/dL (0.1-1.2) 04/13/22 04:35 AST 40 units/L (5-40) 04/13/22 04:35 ALT 32 units/L (7-56) 04/13/22 04:35 Alkaline Phosphatase 157 units/L (35-129) H 04/13/22 04:35 Total Creatine Kinase 184 units/L (55-170) H 04/12/22 07:06 CK-MB (CK-2) 2.6 ng/mL (0.0-4.0) 04/12/22 07:06 CK-MB (CK-2) Rel Index 1.4 (0-4) 04/12/22 07:06 Troponin T 0.054 ng/mL (0.00-0.029) H 04/12/22 16:43 C-Reactive Protein 29.80 mg/dL (0.00-1.30) H 04/12/22 07:06 NT-Pro-B Natriuret Pep 99976 pg/mL (0-900) H 04/12/22 07:06 Total Protein 5.7 g/dL (6.3-8.2) L 04/13/22 04:35 Albumin 3.0 g/dL (3.9-5) L 04/13/22 04:35 Albumin/Globulin Ratio 1.1 % 04/13/22 04:35 Triglycerides 67 mg/dL (2-149) 04/12/22 07:06 Cholesterol 97 mg/dL (50-199) 04/12/22 07:06 LDL Cholesterol Direct 28 mg/dL (50-130) L 04/12/22 07:06 HDL Cholesterol 54 mg/dL (40-59) 04/12/22 07:06 Cholesterol/HDL Ratio 1.79 % 04/12/22 07:06 Urine Color Straw (Yellow) 04/12/22 07:23 Urine Turbidity Cloudy (Clear) 04/12/22 07:23 Urine pH 5.0 (5.0-7.0) 04/12/22 07:23 Ur Specific [place] 1.010 (1.003-1.030) 04/12/22 07:23 Urine Protein 300 mg/dl mg/dL (Negative) 04/12/22 07:23 Urine Glucose (UA) Negative mg/dL (Negative) 04/12/22 07: Urine Ketones Negative mg/dL (Negative) 04/12/22 07: Urine Blood 1+ (Negative) 04/12/22 07:23 Urine Nitrite Negative (Negative) 04/12/22 07:23 Ur Reducing Substances Not Reportable 04/12/22 07: Urine Bilirubin Negative (Negative) 04/12/22 07:23 Urine Ictotest Not Reportable 04/12/22 07:23 Urine Urobilinogen < 2.0 mg/dL (<2.0) 04/12/22 07:23 Ur Leukocyte Esterase Moderate (Negative) 04/12/22 07:23 Urine WBC (Auto) > 182.0 /HPF (0.0-6.0) H 04/12/22 07:23 Urine RBC (Auto) 4.0 /HPF (0.0-6.0) 04/12/22 07:23 U Epithel Cells (Auto) 1.0 /HPF (0-13.0) 04/12/22 07:23 Urine WBC Clumps 2+ /HPF 04/12/22 07:23 Urine Creatinine 71.4 mg/dL (0.1-20.0) H 04/13/22 06:15 Protein/Creatinin Ratio 0.91 04/13/22 06:15 Urine Sodium 36 mmol/L 04/13/22 06:15 Urine Total Protein 65 mg/dL (5-11.8) H 04/13/22 06:15 Urine Opiates Screen Negative 04/12/22 07:23 Urine Methadone Screen Negative 04/12/22 07:23 Ur Barbiturates Screen Negative 04/12/22 07:23 Ur Phencyclidine Scrn Negative 04/12/22 07:23 Ur Amphetamines Screen Negative 04/12/22 07:23 U Benzodiazepines Scrn Negative 04/12/22 07:23 Urine Cocaine Screen Negative 04/12/22 07:23 U Marijuana (THC) Screen Negative 04/12/22 07:23 Drugs of Abuse Note Disclamer 04/12/22 07:23 Coronavirus (PCR) Negative (Negative) 04/13/22 Unknown Blood Type A POSITIVE 04/12/22 13:09 Antibody Screen Negative 04/12/22 13:09 Microbiology: Microbiology 04/12/22 12:29 Peripheral/Venous Blood Culture - Preliminary Culture in Progress 04/12/22 12:29 Peripheral/Venous Blood Culture - Preliminary Culture in Progress Major/IV: Voiding Method Urinal Active Medications - Current Medications Current Medications: Generic Name Dose Route Start Last Admin Trade Name Freq PRN Reason Stop Dose Admin Albuterol 2.5 mg 04/12/22 12:06 Albuterol 2.5 Mg/3 Ml Nebu IH Q3HRT PRN Shortness Of Breath Aspirin 81 mg 04/13/22 10:00 04/13/22 09:53 Aspirin 81 Mg Tab Chew PO 81 mg QDAY GHASSAN Administration Atorvastatin Calcium 40 mg 04/13/22 10:00 04/13/22 09:53 Atorvastatin 40 Mg Tab PO 40 mg DAILY GHASSAN Administration Carvedilol 25 mg 04/12/22 22:00 04/13/22 09:53 Carvedilol 25 Mg Tab PO 25 mg BID GHASSAN Administration Dextrose 50 ml 04/12/22 13:00 Dextrose 50% In Water (25gm) 50 Ml Syringe IV Q30MIN PRN Hypoglycemia Protocol Enoxaparin Sodium 100 mg 04/13/22 11:00 04/13/22 12:42 Enoxaparin 100 Mg/1 Ml Inj 1 mg/kg (100 mg) 100 mg SUB-Q Administration Q12HR GHASSAN Protocol Escitalopram Oxalate 10 mg 04/13/22 10:00 04/13/22 10:09 Escitalopram 10 Mg Tab PO 10 mg DAILY GHASSAN Administration Fish Oil 1,000 mg 04/13/22 10:00 04/13/22 10:09 [place]-3 Fatty Acids/Fish Oil 1 Gram Cap PO 1,000 mg QDAY GHASSAN Administration Furosemide 40 mg 04/12/22 18:00 04/13/22 05:36 Furosemide 20 Mg/2 Ml Inj IV 40 mg 0600,1800 GHASSAN Administration Hydromorphone HCl 0.25 mg 04/12/22 12:06 Hydromorphone 0.5 Mg/0.5 Ml Inj IV Q4H PRN Pain, Moderate (4-6) Amiodarone HCl 900 mg/ 500 mls @ 33.333 mls/hr 04/13/22 10:45 Dextrose IV DIRECT GHASSAN Protocol 1 MG/MIN Cefepime HCl 2 gm in 100 mls @ 200 mls/hr 04/14/22 10:00 Cefepime/Ns 2 Gm/100 Ml IV Q24H [facility] Protocol Insulin Human Lispro 0 unit 04/12/22 16:30 04/13/22 12:42 Insulin Lispro 100 Unit/Ml SUB-Q 4 unit ACHS GHASSAN Administration Protocol Levothyroxine Sodium 25 mcg 04/13/22 06:00 04/13/22 05:36 Levothyroxine 25 Mcg Tab PO 25 mcg DAILY@0600 GHASSAN Administration Oxycodone/Acetaminophen 1 tab 04/12/22 12:06 Oxycodone /Acetaminophen 5-325mg Tab PO Q16H PRN Pain, Moderate (4-6) Sodium Chloride 10 ml 04/12/22 22:00 04/13/22 09:54 Sodium Chloride 0.9% 10 Ml Flush Syringe IV 10 ml BID GHASSAN Administration Tamsulosin HCl 0.4 mg 04/12/22 22:00 04/13/22 09:53 Tamsulosin 0.4 Mg Cap PO 0.4 mg BID GHASSAN Administration
[2022-04-14 05:46] LABS: Calcium 7.8 mg/dL (8.4-10.2)
[2022-04-14] MEDS: FUROSEMIDE 20 MG/2 ML INJ IV SCH ×2 (06:06→17:17)
[2022-04-14] MEDS: LEVOTHYROXINE 25 MCG TAB PO SCH (06:07)
--- NOTE | 2022-04-14 08:01 | Progress Note ---
Assessment and Plan 1. Acute kidney injury: Likely vasomotor ANJUM in the setting of decompensated CHF. Renal US showed mild hydronephrosis ?significance. Monitor renal function. Creatinine level improving. Avoid nephrotoxic agents. Meds dosage based on GFR. 2. FEN: Replete lytes as needed. Monitor lytes and volume status. 3. Sepsis 2/2 UTI: Abx per primary. 4. Acute on chronic HFrEF: Followed by Cards. 5. CAD s/p PCI / Sick sinus syndrome s/p PPM: S/p ablation of ventricular arrhythmia. Followed by Cards. Monitor. 6. Bladder retention: Straight cath as needed. D/w nurse. 7. DM. Monitor. 8. HTN: Monitor. 9. Acute metabolic encephalopathy, POA: Monitor. Subjective: Patient was seen and examined at the bedside. Doing ok. Examination: General appearance: well-developed, appears stated age, no distress HEENT: atraumatic, no icterus, pupils equal Neck: trachea midline Respiratory: ctab Heart: S1S2, regular, no murmur Abdomen: soft, bowel sounds heard, NT Integumentary: no obvious rash Neurologic: alert, confused, able to move extremities Ext: no edema Subjective Date of service: 04/14/22 Principal diagnosis: Sepsis, acute on chronic HFrEF Objective - Vital Signs Vital signs: Vital Signs - 12hr 04/13/22 04/13/22 04/13/22 20:15 21:00 21:14 Temperature Pulse Rate 86 87 Pulse Rate [ From Monitor] Respiratory 18 Rate Blood Pressure 104/69 O2 Sat by Pulse 97 Oximetry 04/13/22 04/13/22 04/13/22 21:59 22:00 23:00 Temperature Pulse Rate 77 79 76 Pulse Rate [ From Monitor] Respiratory 11 L 18 Rate Blood Pressure 109/70 106/68 110/73 O2 Sat by Pulse 94 93 Oximetry 04/14/22 04/14/22 04/14/22 00:00 00:10 01:00 Temperature Pulse Rate 86 81 Pulse Rate [ 86 From Monitor] Respiratory 15 14 Rate Blood Pressure 110/73 95/72 O2 Sat by Pulse 96 97 Oximetry 04/14/22 04/14/22 04/14/22 01:16 01:30 01:46 Temperature Pulse Rate 87 91 H 75 Pulse Rate [ From Monitor] Respiratory 16 16 21 Rate Blood Pressure 95/72 95/72 95/72 O2 Sat by Pulse 97 95 94 Oximetry 04/14/22 04/14/22 04/14/22 02:00 02:16 02:30 Temperature Pulse Rate 83 85 77 Pulse Rate [ From Monitor] Respiratory 20 12 18 Rate Blood Pressure 108/67 108/67 108/67 O2 Sat by Pulse 93 96 92 Oximetry 04/14/22 04/14/22 04/14/22 02:46 03:00 03:16 Temperature Pulse Rate 81 77 123 H Pulse Rate [ From Monitor] Respiratory 19 14 26 H Rate Blood Pressure 108/67 95/50 95/50 O2 Sat by Pulse 92 91 92 Oximetry 04/14/22 04/14/22 04/14/22 03:30 03:46 04:00 Temperature Pulse Rate 75 77 91 H Pulse Rate [ From Monitor] Respiratory 16 16 16 Rate Blood Pressure 95/50 95/50 98/62 O2 Sat by Pulse 94 89 89 Oximetry 04/14/22 04/14/22 04/14/22 04:05 04:16 04:30 Temperature Pulse Rate 79 84 77 Pulse Rate [ From Monitor] Respiratory 21 29 H Rate Blood Pressure 98/62 98/62 O2 Sat by Pulse 92 94 Oximetry 04/14/22 04/14/22 04/14/22 04:46 05:00 05:16 Temperature 98.4 F Pulse Rate 91 H 85 88 Pulse Rate [ From Monitor] Respiratory 24 21 18 Rate Blood Pressure 98/62 94/49 98/62 O2 Sat by Pulse 95 89 94 Oximetry 04/14/22 04/14/22 04/14/22 05:30 05:46 06:00 Temperature Pulse Rate 79 102 H 128 H Pulse Rate [ From Monitor] Respiratory 18 19 18 Rate Blood Pressure 98/62 98/62 102/57 O2 Sat by Pulse 95 95 88 Oximetry 04/14/22 06:16 Temperature Pulse Rate 129 H Pulse Rate [ From Monitor] Respiratory 12 Rate Blood Pressure 102/57 O2 Sat by Pulse 93 Oximetry - Lab 04/13/22 04:35 04/14/22 05:09 Most recent lab results Calcium 7.8 mg/dL (8.4-10.2) L 04/14/22 05:09 Urine Creatinine 71.4 mg/dL (0.1-20.0) H 04/13/22 06:15 Urine Sodium 36 mmol/L 04/13/22 06:15 Urine Total Protein 65 mg/dL (5-11.8) H 04/13/22 06:15 Medications & Allergies - Medications Allergies/Adverse Reactions: Allergies Sulfa (Sulfonamide Antibiotics) Allergy (Mild, Verified 04/13/22 07:39) Unknown Home Medications: Home Medications Medication Instructions Recorded Confirmed Last Taken Type AtorvaSTATin [Lipitor] 40 mg PO DAILY 03/18/18 03/28/19 04/11/22 09:00 History Escitalopram [Lexapro] 10 mg PO DAILY 03/18/18 03/28/19 04/11/22 09:00 History Metformin HCl [Glucophage] 500 mg PO BID 03/18/18 03/28/19 04/11/22 22:00 History Tamsulosin HCl [Flomax] 0.4 mg PO BID 03/18/18 03/28/19 04/11/22 22:00 History Marion-3S/Dha/Epa/Fish Oil [Fish 1 each PO DAILY 04/24/18 03/28/19 04/11/22 09:00 History Oil 1,200 mg Softgel] Aspirin [Aspirin BABY CHEW TAB] 81 mg PO QDAY tab.chew 04/25/18 03/28/19 04/13/22 09:00 Rx Losartan [Cozaar] 100 mg PO QDAY tablet 04/25/18 03/28/19 04/11/22 09:00 Rx Ticagrelor [Brilinta] 90 mg PO BID #60 tablet 04/25/18 03/28/19 04/11/22 22:00 Rx Levothyroxine [Synthroid] 25 mcg PO DAILY@0600 #30 tablet 08/19/18 03/28/19 04/11/22 09:00 Rx carvediloL [Coreg] 3.125 mg PO BID #60 tablet 08/19/18 03/28/19 04/11/22 22:00 Rx Active Medications: Generic Name Dose Route Start Last Admin Trade Name Freq PRN Reason Stop Dose Admin Albuterol 2.5 mg 04/12/22 12:06 Albuterol 2.5 Mg/3 Ml Nebu IH Q3HRT PRN Shortness Of Breath Aspirin 81 mg 04/13/22 10:00 04/13/22 09:53 Aspirin 81 Mg Tab Chew PO 81 mg QDAY GHASSAN Administration Atorvastatin Calcium 40 mg 04/13/22 10:00 04/13/22 09:53 Atorvastatin 40 Mg Tab PO 40 mg DAILY GHASSAN Administration Carvedilol 25 mg 04/12/22 22:00 04/13/22 21:59 Carvedilol 25 Mg Tab PO 25 mg BID GHASSAN Administration Dextrose 50 ml 04/12/22 13:00 Dextrose 50% In Water (25gm) 50 Ml Syringe IV Q30MIN PRN Hypoglycemia Protocol Enoxaparin Sodium 100 mg 04/13/22 11:00 04/13/22 21:59 Enoxaparin 100 Mg/1 Ml Inj 1 mg/kg (100 mg) 100 mg SUB-Q Administration Q12HR [facility] Protocol Escitalopram Oxalate 10 mg 04/13/22 10:00 04/13/22 10:09 Escitalopram 10 Mg Tab PO 10 mg DAILY GHASSAN Administration Fish Oil 1,000 mg 04/13/22 10:00 04/13/22 10:09 Marion-3 Fatty Acids/Fish Oil 1 Gram Cap PO 1,000 mg QDAY GHASSAN Administration Furosemide 40 mg 04/12/22 18:00 04/14/22 06:06 Furosemide 20 Mg/2 Ml Inj IV 40 mg 0600,1800 [facility]ASSAN Administration Hydromorphone HCl 0.25 mg 04/12/22 12:06 Hydromorphone 0.5 Mg/0.5 Ml Inj IV Q4H PRN Pain, Moderate (4-6) Amiodarone HCl 900 mg/ 500 mls @ 33.333 mls/hr 04/13/22 10:45 Dextrose IV DIRECT GHASSAN Protocol 1 MG/MIN Cefepime HCl 2 gm in 100 mls @ 200 mls/hr 04/14/22 10:00 Cefepime/Ns 2 Gm/100 Ml IV Q24H [facility] Protocol Insulin Human Lispro 0 unit 04/12/22 16:30 04/13/22 22:00 Insulin Lispro 100 Unit/Ml SUB-Q 3 unit ACHS GHASSAN Administration Protocol Levothyroxine Sodium 25 mcg 04/13/22 06:00 04/14/22 06:07 Levothyroxine 25 Mcg Tab PO 25 mcg DAILY@0600 [facility]ASSAN Administration Oxycodone/Acetaminophen 1 tab 04/12/22 12:06 Oxycodone /Acetaminophen 5-325mg Tab PO Q16H PRN Pain, Moderate (4-6) Sodium Chloride 10 ml 04/12/22 22:00 04/13/22 22:00 Sodium Chloride 0.9% 10 Ml Flush Syringe IV 10 ml BID GHASSAN Administration Tamsulosin HCl 0.4 mg 04/12/22 22:00 04/13/22 21:59 Tamsulosin 0.4 Mg Cap PO 0.4 mg BID GHASSAN Administration
--- NOTE | 2022-04-14 08:13 | Progress Note ---
Assessment and Plan Assessment and plan: 77 YO Male with HTN, DM, BPH, CAD, Systolic CHF(EF 20%), HLD, AR, Cardiomyopathy S/P Pacemaker Placement, MDD presents to ED for evaluation. Patient reports "I feel weak and my legs are swollen". Patient states that he has experienced generalized weakness, decreased exercise tolerance over the past 1 week with persistent and worsening symptoms over the past few days. Patient knowledges decreased exercise tolerance, dyspnea on exertion, dyspnea at rest, orthopnea, paroxysmal nocturnal dyspnea, as well as subjective fever. EMS was notified and upon arrival the patient was found to be in distress and subsequently transported to [facility] for further care and evaluation of the aforementioned symptoms. The patient was seen and evaluated in the emergency department. All lab and imaging studies reviewed. Patient underwent EKG and was also found to have supraventricular tachycardia and was treated with adenosine with normalization of heart rate. Patient found to have fever to 101.1 F as well as urinary tract infection complicated by sepsis, as well as clinical symptoms consistent with CHF decompensation as well as type II NSTEMI and cardiorenal syndrome. Patient initiated on sepsis protocol and admitted to IMCU due to increased risk of worsening symptoms and for medical stabilization. Patient also initiated on CHF protocol. Cardiology team consulted in ED. Patient knowledges fever but denies chills, chest pain, productive cough, skin rash, recent contact, or known exposure to COVID-19. Prior admission on 09/09/2018 reviewed. All medication listed at time of admission has been reconciled. Advanced care planning conducted in ED. Echo 04/12/2022-severe global hypokinesis of LV. EF 20 to 25%. Left ventricle is mildly dilated. Mild diastolic dysfunction is present impaired relaxation pattern. No pericardial effusion Echocardiogram 08/03/2021-EF 30 to 35%. Diffusely hypokinetic LV. LV diastolic dysfunction. Normal right ventricular systolic function. No pericardial effusion Nuclear medicine lexiscan stresstest 04/05/2018- non ischemic.gated spect: mild post stress lv systolic dysfunction. spect mpi: evidence of prior inferior wall myocardial infarction with a residual degree of ischemia. A significant degree of ischemia is not seen. Outpatient medications: Entresto 97 mg130 mg p.o. twice daily, carvedilol 25 mg p.o. twice daily, Aldactone 12.5 mg p.o. daily, atorvastatin 40 mg p.o. nightly, torsemide 20 mg p.o. every 48 hours, aspirin 04/13: Patient seen and examined, clinically stable, discussed with cardiology team IV amiodarone started in addition to anticoagulation. Patient was severely depressed cardiac function EF of 20 to 25%. Will await COVID testing and if negative will transfer patient to telemetry. Otherwise continue antibiotics for sepsis management. Plan of care discussed with the patient in detail advance care directive discussion had with the patient in detail patient maintains a full code at this time. 04/14: Patient seen and examined no fever noted. Clinically improving although has urinary retention as a result of getting Major placed. Will likely have outpatient follow-up with urology to manage Major and a leg bag. Continues on Flomax twice daily. Heart rate still uncontrolled at rest discussed with director process improvement-Will initiate amiodarone 200 mg p.o. twice daily. Will transfer to telemetry anticipate discharge in a.m. if clinically stable (1) Atrial Flutter Patient had episode of a flutter with RVR. Will initiate IV amiodarone bolus and drip Initiate Lovenox for anticoagulation (2) Sepsis Current Visit: Yes Status: Acute Qualifiers: Severe sepsis acute organ dysfunction type: acute renal failure Plan to address problem: Sepsis protocol: IV antibiotic therapy, chest x-ray, urinalysis, IV fluid r esuscitation therapy, IV antibiotic therapy, blood culture, serial lactic acid level, maintain mean arterial pressure greater than equal to 65, monitor fluid balance, monitor urine output every shift (3) NSTEMI (non-ST elevated myocardial infarction) Current Visit: Yes Status: Acute Plan to address problem: Type II NSTEMI: Serial cardiac enzymes, EKG, telemetry monitoring, echocardiogram ordered and pending at time of admission, cardiology team consulted. (4) Cardiorenal syndrome Current Visit: Yes Status: Acute Qualifiers: Heart failure presence: with heart failure Plan to address problem: Urine electrolytes, nephrology team consulted, monitor urine output every shift Coronary artery disease s/p PCI-S/p ablation of ventricular arrhythmia Sick sinus syndrome s/p PPM(Biotronik) (5) Acute Cystitis Current Visit: Yes Status: Acute Qualifiers: Encounter type: initial encounter Plan to address problem: Urinalysis, IV antibiotic therapy, repeat CBC in AM. (6) Acute on chronic systolic CHF (congestive heart failure) Current Visit: No Status: Acute Plan to address problem: Strict I's/O, monitor urine output every shift, daily weight, afterload reduction, blood pressure control, supplemental oxygen, pulse oximetry, echocar diogram ordered and pending at time of admission, diuresis with Lasix. Monitor fluid balance. (7) NSVT (nonsustained ventricular tachycardia) Current Visit: No Status: Acute Plan to address problem: Patient treated with adenosine with conversion back to sinus rhythm. Cardiology team consulted, continue telemetry monitoring. (8) BPH (benign prostatic hyperplasia) Current Visit: No Status: Chronic Qualifiers: Lower urinary tract symptom presence: symptoms present Plan to address problem: Continue medical management, outpatient urology follow-up. (9) Depression Current Visit: No Status: Chronic Qualifiers: Depression Type: unspecified Qualified Code(s): F32.9 - Major depressive disorder, single episode, unspecified Plan to address problem: Continue medical management, supportive care. No acute exacerbation at this time, outpatient psychiatry follow-up. (10) Diabetes Current Visit: No Status: Chronic Plan to address problem: Consistent carbohydrate diet, Accu-Chek, insulin protocol, hypoglycemia protocol. (11) HLD (hyperlipidemia) Current Visit: No Status: Chronic Qualifiers: Hyperlipidemia type: mixed hyperlipidemia Qualified Code(s): E78.2 - Mixed hyperlipidemia Plan to address problem: Statin therapy, supportive care, low-cholesterol diet. (12) HTN (hypertension) Current Visit: No Status: Chronic Qualifiers: Hypertension type: primary hypertension Qualified Code(s): I10 - Essential (primary) hypertension Plan to address problem: Monitor blood pressure every shift, continue medical management. 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 Patient acknowledges understanding and agreement with care plan, +30 minutes. (18) Preventative health care Current Visit: Yes Status: Acute Plan to address problem: Patient counseled regarding dietary compliance, fluid restriction compliance, outpatient follow-up with primary care physician for all age and risk factor appropriate screening test. +30 minutes. History Interval history: Patient seen and examined this morning remains with heart rate in the 130s when upset. Was complaining about his foot being cold. Hospitalist Physical - Physical exam Narrative exam: VITAL SIGNS: Reviewed. GENERAL: The patient appears normally developed, Vital signs as documented. HEAD: No signs of head trauma. EYES: Pupils are equal. Extraocular motions intact. EARS: Hearing grossly intact. MOUTH: Oropharynx is normal. NECK: No adenopathy, no JVD. CHEST: Chest with clear breath sounds bilaterally. No wheezes, rales, or rhonchi. CARDIAC: Irregularly irregular rate and rhythm. S1 and S2, without murmurs, gallops, or rubs. VASCULAR: No Edema. Peripheral pulses normal and equal in all extremities. ABDOMEN: Soft, non tender and non distended. No rebound or guarding, and no masses palpated. Bowel Sounds normal. MUSCULOSKELETAL: Good range of motion of all major joints. Extremities without clubbing, cyanosis. +edema. NEUROLOGIC EXAM: Alert and oriented x 3 No focal sensory or strength deficits. Speech normal. Follows commands. PSYCHIATRIC: Mood normal. SKIN: detail exam as documented in skin assessment - Constitutional Vitals: Temp Pulse Resp BP Pulse Ox 98.4 F 129 H 12 102/57 93 04/14/22 05:00 04/14/22 06:16 04/14/22 06:16 04/14/22 06:16 04/14/22 06:16 General appearance: Present: no acute distress HEART Score - HEART Score Troponin: Troponin T 0.054 ng/mL (0.00-0.029) H 04/12/22 16:43 Results - Labs CBC & Chem 7: 04/13/22 04:35 04/14/22 05:09 Labs: Laboratory Last Values WBC 11.4 K/mm3 (4.5-11.0) H 04/13/22 04:35 RBC 3.96 M/mm3 (3.65-5.03) 04/13/22 04:35 Hgb 11.7 gm/dl (11.8-15.2) L 04/13/22 04:35 Hct 36.7 % (35.5-45.6) 04/13/22 04:35 MCV 93 fl (84-94) 04/13/22 04:35 MCH 30 pg (28-32) 04/13/22 04:35 MCHC 32 % (32-34) 04/13/22 04:35 RDW 14.1 % (13.2-15.2) 04/13/22 04:35 Plt Count 256 K/mm3 (140-440) 04/13/22 04:35 Lymph % (Auto) 9.9 % (13.4-35.0) L 04/12/22 07:06 Edmunds % (Auto) 8.6 % (0.0-7.3) H 04/12/22 07:06 Eos % (Auto) 0.1 % (0.0-4.3) 04/12/22 07:06 Baso % (Auto) 0.6 % (0.0-1.8) 04/12/22 07:06 Lymph # (Auto) 1.3 K/mm3 (1.2-5.4) 04/12/22 07:06 Edmunds # (Auto) 1.1 K/mm3 (0.0-0.8) H 04/12/22 07:06 Eos # (Auto) 0.0 K/mm3 (0.0-0.4) 04/12/22 07:06 Baso # (Auto) 0.1 K/mm3 (0.0-0.1) 04/12/22 07:06 Add Manual Diff Complete 04/13/22 04:35 Total Counted 100 04/13/22 04:35 Seg Neutrophils % 80.8 % (40.0-70.0) H 04/12/22 07:06 Seg Neuts % (Manual) 89.0 % (40.0-70.0) H 04/13/22 04:35 Band Neutrophils % 0 % 04/13/22 04:35 Lymphocytes % (Manual) 6.0 % (13.4-35.0) L 04/13/22 04:35 Reactive Lymphs % (Man) 0 % 04/13/22 04:35 Monocytes % (Manual) 5.0 % (0.0-7.3) 04/13/22 04:35 Eosinophils % (Manual) 0 % (0.0-4.3) 04/13/22 04:35 Basophils % (Manual) 0 % (0.0-1.8) 04/13/22 04:35 Metamyelocytes % 0 % 04/13/22 04:35 Myelocytes % 0 % 04/13/22 04:35 Promyelocytes % 0 % 04/13/22 04:35 Blast Cells % 0 % 04/13/22 04:35 Nucleated RBC % Not Reportable 04/13/22 04:35 Seg Neutrophils # 10.3 K/mm3 (1.8-7.7) H 04/12/22 07:06 Seg Neutrophils # Man 10.1 K/mm3 (1.8-7.7) H 04/13/22 04:35 Band Neutrophils # 0.0 K/mm3 04/13/22 04:35 Lymphocytes # (Manual) 0.7 K/mm3 (1.2-5.4) L 04/13/22 04:35 Abs React Lymphs (Man) 0.0 K/mm3 04/13/22 04:35 Monocytes # (Manual) 0.6 K/mm3 (0.0-0.8) 04/13/22 04:35 Eosinophils # (Manual) 0.0 K/mm3 (0.0-0.4) 04/13/22 04:35 Basophils # (Manual) 0.0 K/mm3 (0.0-0.1) 04/13/22 04:35 Metamyelocytes # 0.0 K/mm3 04/13/22 04:35 Myelocytes # 0.0 K/mm3 04/13/22 04:35 Promyelocytes # 0.0 K/mm3 04/13/22 04:35 Blast Cells # 0.0 K/mm3 04/13/22 04:35 WBC Morphology Not Reportable 04/13/22 04:35 Hypersegmented Neuts Not Reportable 04/13/22 04:35 Hyposegmented Neuts Not Reportable 04/13/22 04:35 Hypogranular Neuts Not Reportable 04/13/22 04:35 Smudge Cells Not Reportable 04/13/22 04:35 Toxic Granulation Not Reportable 04/13/22 04:35 Toxic Vacuolation Not Reportable 04/13/22 04:35 Dohle Bodies Not Reportable 04/13/22 04:35 Pelger-Huet Anomaly Not Reportable 04/13/22 04:35 Seth Rods Not Reportable 04/13/22 04:35 Platelet Estimate Consistent w auto 04/13/22 04:35 Clumped Platelets Not Reportable 04/13/22 04:35 Plt Clumps, EDTA Not Reportable 04/13/22 04:35 Large Platelets Not Reportable 04/13/22 04:35 Giant Platelets Not Reportable 04/13/22 04:35 Platelet Satelliting Not Reportable 04/13/22 04:35 Plt Morphology Comment Not Reportable 04/13/22 04:35 RBC Morphology Not Reportable 04/13/22 04:35 Dimorphic RBCs Not Reportable 04/13/22 04:35 Polychromasia Not Reportable 04/13/22 04:35 Hypochromasia Not Reportable 04/13/22 04:35 Poikilocytosis Not Reportable 04/13/22 04:35 Anisocytosis Not Reportable 04/13/22 04:35 Microcytosis Not Reportable 04/13/22 04:35 Macrocytosis Not Reportable 04/13/22 04:35 Spherocytes Not Reportable 04/13/22 04:35 Pappenheimer Bodies Not Reportable 04/13/22 04:35 Sickle Cells Not Reportable 04/13/22 04:35 Target Cells Not Reportable 04/13/22 04:35 Tear Drop Cells Not Reportable 04/13/22 04:35 Ovalocytes Not Reportable 04/13/22 04:35 Helmet Cells Not Reportable 04/13/22 04:35 Martinez-Welcome Bodies Not Reportable 04/13/22 04:35 Worthington Rings Not Reportable 04/13/22 04:35 Jj Cells Not Reportable 04/13/22 04:35 Bite Cells Not Reportable 04/13/22 04:35 Crenated Cell Not Reportable 04/13/22 04:35 Elliptocytes Not Reportable 04/13/22 04:35 Acanthocytes (Spur) Not Reportable 04/13/22 04:35 Rouleaux Not Reportable 04/13/22 04:35 Hemoglobin C Crystals Not Reportable 04/13/22 04:35 Schistocytes Not Reportable 04/13/22 04:35 Malaria parasites Not Reportable 04/13/22 04:35 Abram Bodies Not Reportable 04/13/22 04:35 Hem Pathologist Commnt No 04/13/22 04:35 PT 15.1 Sec. (12.2-14.9) H 04/12/22 07:06 INR 1.07 (0.87-1.13) 04/12/22 07:06 Sodium 139 mmol/L (137-145) 04/14/22 05:09 Potassium 3.4 mmol/L (3.6-5.0) L 04/14/22 05:09 Chloride 102.1 mmol/L (98-107) 04/14/22 05:09 Carbon Dioxide 26 mmol/L (22-30) 04/14/22 05:09 Anion Gap 14 mmol/L 04/14/22 05:09 BUN 46 mg/dL (9-20) H 04/14/22 05:09 Creatinine 1.5 mg/dL (0.8-1.3) H 04/14/22 05:09 Estimated GFR 45 ml/min 04/14/22 05:09 BUN/Creatinine Ratio 31 % 04/14/22 05:09 Glucose 139 mg/dL (75-100) H 04/14/22 05:09 POC Glucose 229 mg/dL (70-105) H 04/13/22 21:37 Lactic Acid 1.70 mmol/L (0.7-2.0) 04/12/22 16:55 Calcium 7.8 mg/dL (8.4-10.2) L 04/14/22 05:09 Total Bilirubin 0.40 mg/dL (0.1-1.2) 04/13/22 04:35 AST 40 units/L (5-40) 04/13/22 04:35 ALT 32 units/L (7-56) 04/13/22 04:35 Alkaline Phosphatase 157 units/L (35-129) H 04/13/22 04:35 Total Creatine Kinase 184 units/L (55-170) H 04/12/22 07:06 CK-MB (CK-2) 2.6 ng/mL (0.0-4.0) 04/12/22 07:06 CK-MB (CK-2) Rel Index 1.4 (0-4) 04/12/22 07:06 Troponin T 0.054 ng/mL (0.00-0.029) H 04/12/22 16:43 C-Reactive Protein 29.80 mg/dL (0.00-1.30) H 04/12/22 07:06 NT-Pro-B Natriuret Pep 43936 pg/mL (0-900) H 04/12/22 07:06 Total Protein 5.7 g/dL (6.3-8.2) L 04/13/22 04:35 Albumin 3.0 g/dL (3.9-5) L 04/13/22 04:35 Albumin/Globulin Ratio 1.1 % 04/13/22 04:35 Triglycerides 67 mg/dL (2-149) 04/12/22 07:06 Cholesterol 97 mg/dL (50-199) 04/12/22 07:06 LDL Cholesterol Direct 28 mg/dL (50-130) L 04/12/22 07:06 HDL Cholesterol 54 mg/dL (40-59) 04/12/22 07:06 Cholesterol/HDL Ratio 1.79 % 04/12/22 07:06 Urine Color Straw (Yellow) 04/12/22 07:23 Urine Turbidity Cloudy (Clear) 04/12/22 07:23 Urine pH 5.0 (5.0-7.0) 04/12/22 07:23 Ur Specific Clayton 1.010 (1.003-1.030) 04/12/22 07:23 Urine Protein 300 mg/dl mg/dL (Negative) 04/12/22 07:23 Urine Glucose (UA) Negative mg/dL (Negative) 04/12/22 07: Urine Ketones Negative mg/dL (Negative) 04/12/22 07:23 Urine Blood 1+ (Negative) 04/12/22 07:23 Urine Nitrite Negative (Negative) 04/12/22 07:23 Ur Reducing Substances Not Reportable 04/12/22 07: Urine Bilirubin Negative (Negative) 04/12/22 07:23 Urine Ictotest Not Reportable 04/12/22 07:23 Urine Urobilinogen < 2.0 mg/dL (<2.0) 04/12/22 07:23 Ur Leukocyte Esterase Moderate (Negative) 04/12/22 07: Urine WBC (Auto) > 182.0 /HPF (0.0-6.0) H 04/12/22 07:23 Urine RBC (Auto) 4.0 /HPF (0.0-6.0) 04/12/22 07:23 U Epithel Cells (Auto) 1.0 /HPF (0-13.0) 04/12/22 07:23 Urine WBC Clumps 2+ /HPF 04/12/22 07:23 Urine Creatinine 71.4 mg/dL (0.1-20.0) H 04/13/22 06:15 Protein/Creatinin Ratio 0.91 04/13/22 06:15 Urine Sodium 36 mmol/L 04/13/22 06:15 Urine Total Protein 65 mg/dL (5-11.8) H 04/13/22 06:15 Urine Opiates Screen Negative 04/12/22 07:23 Urine Methadone Screen Negative 04/12/22 07:23 Ur Barbiturates Screen Negative 04/12/22 07:23 Ur Phencyclidine Scrn Negative 04/12/22 07:23 Ur Amphetamines Screen Negative 04/12/22 07:23 U Benzodiazepines Scrn Negative 04/12/22 07:23 Urine Cocaine Screen Negative 04/12/22 07:23 U Marijuana (THC) Screen Negative 04/12/22 07:23 Drugs of Abuse Note Disclamer 04/12/22 07:23 Coronavirus (PCR) Negative (Negative) 04/13/22 Unknown Blood Type A POSITIVE 04/12/22 13:09 Antibody Screen Negative 04/12/22 13:09 Microbiology: Microbiology 04/12/22 12:29 Peripheral/Venous Blood Culture - Preliminary NO GROWTH AFTER 24 HOURS 04/12/22 12:29 Peripheral/Venous Blood Culture - Preliminary NO GROWTH AFTER 24 HOURS Major/IV: Voiding Method Urinal Active Medications - Current Medications Current Medications: Generic Name Dose Route Start Last Admin Trade Name Freq PRN Reason Stop Dose Admin Albuterol 2.5 mg 04/12/22 12:06 Albuterol 2.5 Mg/3 Ml Nebu IH Q3HRT PRN Shortness Of Breath Aspirin 81 mg 04/13/22 10:00 04/13/22 09:53 Aspirin 81 Mg Tab Chew PO 81 mg QDAY GHASSAN Administration Atorvastatin Calcium 40 mg 04/13/22 10:00 04/13/22 09:53 Atorvastatin 40 Mg Tab PO 40 mg DAILY GHASSAN Administration Carvedilol 25 mg 04/12/22 22:00 04/13/22 21:59 Carvedilol 25 Mg Tab PO 25 mg BID GHASSAN Administration Dextrose 50 ml 04/12/22 13:00 Dextrose 50% In Water (25gm) 50 Ml Syringe IV Q30MIN PRN Hypoglycemia Protocol Enoxaparin Sodium 100 mg 04/13/22 11:00 04/13/22 21:59 Enoxaparin 100 Mg/1 Ml Inj 1 mg/kg (100 mg) 100 mg SUB-Q Administration Q12HR [facility] Protocol Escitalopram Oxalate 10 mg 04/13/22 10:00 04/13/22 10:09 Escitalopram 10 Mg Tab PO 10 mg DAILY GHASSAN Administration Fish Oil 1,000 mg 04/13/22 10:00 04/13/22 10:09 [place]-3 Fatty Acids/Fish Oil 1 Gram Cap PO 1,000 mg QDAY GHASSAN Administration Furosemide 40 mg 04/12/22 18:00 04/14/22 06:06 Furosemide 20 Mg/2 Ml Inj IV 40 mg 0600,1800 GHASSAN Administration Hydromorphone HCl 0.25 mg 04/12/22 12:06 Hydromorphone 0.5 Mg/0.5 Ml Inj IV Q4H PRN Pain, Moderate (4-6) Amiodarone HCl 900 mg/ 500 mls @ 33.333 mls/hr 04/13/22 10:45 Dextrose IV DIRECT [facility] Protocol 1 MG/MIN Cefepime HCl 2 gm in 100 mls @ 200 mls/hr 04/14/22 10:00 Cefepime/Ns 2 Gm/100 Ml IV Q24H [facility] Protocol Insulin Human Lispro 0 unit 04/12/22 16:30 04/13/22 22:00 Insulin Lispro 100 Unit/Ml SUB-Q 3 unit ACHS GHASSAN Administration Protocol Levothyroxine Sodium 25 mcg 04/13/22 06:00 04/14/22 06:07 Levothyroxine 25 Mcg Tab PO 25 mcg DAILY@0600 GHASSAN Administration Oxycodone/Acetaminophen 1 tab 04/12/22 12:06 Oxycodone /Acetaminophen 5-325mg Tab PO Q16H PRN Pain, Moderate (4-6) Potassium Chloride 40 meq 04/14/22 08:00 Potassium Chloride Er 20 Meq Tab PO 04/14/22 14:01 Q8HR GHASSAN Sodium Chloride 10 ml 04/12/22 22:00 04/13/22 22:00 Sodium Chloride 0.9% 10 Ml Flush Syringe IV 10 ml BID GHASSAN Administration Tamsulosin HCl 0.4 mg 04/12/22 22:00 04/13/22 21:59 Tamsulosin 0.4 Mg Cap PO 0.4 mg BID GHASSAN Administration
[2022-04-14] MEDS: ESCITALOPRAM 10 MG TAB PO SCH (10:12)
[2022-04-14] MEDS: ENOXAPARIN 100 MG/1 ML INJ SUB-Q SCH ×2 (10:12→21:44)
[2022-04-14] MEDS: ASPIRIN 81 MG TAB CHEW PO SCH (10:12)
[2022-04-14] MEDS: POTASSIUM CHLORIDE ER 20 MEQ TAB PO SCH ×2 (10:13→14:12)
[2022-04-14] MEDS: INSULIN LISPRO 100 UNIT/ML SUB-Q SCH ×4 (10:13→21:49)
[2022-04-14] MEDS: OMEGA-3 FATTY ACIDS/FISH OIL 1 GRAM CAP PO SCH (10:13)
[2022-04-14] MEDS: TAMSULOSIN 0.4 MG CAP PO SCH ×2 (10:13→21:43)
[2022-04-14] MEDS: carvediloL 25 MG TAB PO SCH ×2 (10:13→21:43)
--- NOTE | 2022-04-14 11:48 | Progress Note ---
Assessment and Plan Patient 77-year-old male with a past medical history of coronary artery disease s/p PCI, chronic systolic heart failure EF 30 to 35%, sick sinus syndrome s/p PPM, hypertension, diabetes, s/p ablation of ventricular arrhythmia, hypothyroid, BPH, who presents to the ED with a complaint of weakness and bilateral lower extremity edema x2 days. Sepsis UTI Acute on chronic HFrEF ANJUM-nephrology following Coronary artery disease s/p PCI Sick sinus syndrome s/p PPM(Biotronik) S/p ablation of ventricular arrhythmia Hypothyroidism Hypertension Diabetes Echo 04/12/2022-severe global hypokinesis of LV. EF 20 to 25%. Left ventricle is mildly dilated. Mild diastolic dysfunction is present impaired relaxation pattern. No pericardial effusion Echocardiogram 08/03/2021-EF 30 to 35%. Diffusely hypokinetic LV. LV diastolic dysfunction. Normal right ventricular systolic function. No pericardial effusion Nuclear medicine lexiscan stresstest 04/05/2018- non ischemic.gated spect: mild post stress lv systolic dysfunction. spect mpi: evidence of prior inferior wall myocardial infarction with a residual degree of ischemia. A significant degree of ischemia is not seen. Outpatient medications: Entresto 97 mg130 mg p.o. twice daily, carvedilol 25 mg p.o. twice daily, Aldactone 12.5 mg p.o. daily, atorvastatin 40 mg p.o. nightly, torsemide 20 mg p.o. every 48 hours, aspirin Plan: Patient remains chest pain-free Suspect troponin elevation in setting of sepsis, ANJUM, and acute on chronic CHF. Continue carvedilol 25 mg p.o. daily, aspirin, atorvastatin 40 mg p.o. nightly Will hold Entresto and Aldactone due to elevated creatinine BNP noted to be elevated and patient has bilateral lower extremity edema. Conitnue Lasix 40 mg IV twice daily if okay with nephrology Strict I&O's, daily weights, repeat BMP in the a.m. with close monitoring of renal function Covid PCR negative Continue Lovenox for anticoagulation plan to transition to Eliquis at discharge Telemetry reviewed patient in sinus rhythm however patient does have episodes of a flutter with rate into the 130s. Will initiate amiodarone 200 mg p.o. twice daily Continue to monitor Patient seen in conjunction with Dr. Baptiste who agrees with this plan of care - Patient Problems (1) Cardiorenal syndrome Current Visit: Yes Status: Acute Qualifiers: Heart failure presence: with heart failure (2) Elevated troponin Current Visit: Yes Status: Acute (3) Fever Current Visit: Yes Status: Acute (4) SVT (supraventricular tachycardia) Current Visit: Yes Status: Acute (5) Sepsis Current Visit: Yes Status: Acute (6) UTI (urinary tract infection) Current Visit: Yes Status: Acute Qualifiers: Encounter type: initial encounter (7) Weakness Current Visit: Yes Status: Acute (8) Acute on chronic systolic CHF (congestive heart failure) Current Visit: No Status: Acute (9) Sick sinus syndrome Current Visit: No Status: Acute (10) BPH (benign prostatic hyperplasia) Current Visit: No Status: Chronic Qualifiers: Lower urinary tract symptom presence: symptoms present (11) CAD (coronary artery disease) Current Visit: No Status: Chronic (12) Cardiac pacemaker in situ Current Visit: No Status: Chronic (13) Cardiomyopathy Current Visit: No Status: Chronic (14) Depression Current Visit: No Status: Chronic Qualifiers: Depression Type: unspecified Qualified Code(s): F32.9 - Major depressive disorder, single episode, unspecified (15) HLD (hyperlipidemia) Current Visit: No Status: Chronic Qualifiers: Hyperlipidemia type: mixed hyperlipidemia Qualified Code(s): E78.2 - Mixed hyperlipidemia (16) HTN (hypertension) Current Visit: No Status: Chronic Qualifiers: Hypertension type: primary hypertension Qualified Code(s): I10 - Essential (primary) hypertension (17) Stented coronary artery Current Visit: No Status: Chronic Subjective Date of service: 04/14/22 Principal diagnosis: Sepsis, acute on chronic HFrEF Interval history: Patient resting in bed in no acute distress Patient currently sinus 90s with episodes of a flutter into the 130s Objective Vital Signs Temp Pulse Pulse Resp BP Pulse Ox 04/14/22 10:13 129 H 119/82 04/14/22 08:16 87 21 128/83 94 04/14/22 08:14 95 04/14/22 08:00 91 H 15 128/83 93 04/14/22 07:46 82 28 H 133/83 95 04/14/22 07:30 85 21 133/83 94 04/14/22 07:16 87 14 133/83 94 04/14/22 07:00 90 14 102/57 94 04/14/22 06:46 86 19 102/57 93 04/14/22 06:30 128 H 22 102/57 93 04/14/22 06:16 129 H 12 102/57 93 04/14/22 06:00 128 H 18 102/57 88 04/14/22 05:46 102 H 19 98/62 95 04/14/22 05:30 79 18 98/62 95 04/14/22 05:16 88 18 98/62 94 04/14/22 05:00 98.4 F 85 21 94/49 89 04/14/22 04:46 91 H 24 98/62 95 04/14/22 04:30 77 29 H 98/62 94 04/14/22 04:16 84 21 98/62 92 04/14/22 04:05 79 04/14/22 04:00 91 H 16 98/62 89 04/14/22 03:46 77 16 95/50 89 04/14/22 03:30 75 16 95/50 94 04/14/22 03:16 123 H 26 H 95/50 92 04/14/22 03:00 77 14 95/50 91 04/14/22 02:46 81 19 108/67 92 04/14/22 02:30 77 18 108/67 92 04/14/22 02:16 85 12 108/67 96 04/14/22 02:00 83 20 108/67 93 04/14/22 01:46 75 21 95/72 94 04/14/22 01:30 91 H 16 95/72 95 04/14/22 01:16 87 16 95/72 97 04/14/22 01:00 14 95/72 97 04/14/22 00:10 81 04/14/22 00:00 86 86 15 110/73 96 04/13/22 23:00 76 18 110/73 93 04/13/22 22:00 79 11 L 106/68 94 04/13/22 21:59 77 109/70 04/13/22 21:14 97 04/13/22 21:00 87 18 104/69 04/13/22 20:15 86 04/13/22 20:00 100 H 34 H 94/61 93 04/13/22 19:45 98 F 04/13/22 19:00 85 27 H 88/51 92 04/13/22 18:40 93 H 20 96 04/13/22 18:12 90 17 89/57 94 04/13/22 18:00 88 14 89/57 91 04/13/22 17:00 81 20 97/64 94 04/13/22 16:00 131 H 17 90/46 04/13/22 15:00 129 H 24 97/59 92 04/13/22 14:40 91 H 21 94 04/13/22 14:00 90 16 97/59 94 04/13/22 13:00 114 H 14 120/90 91 04/13/22 12:00 92 H 22 96/62 94 - Physical Examination General: No Apparent Distress HEENT: Positive: PERRL, Normocephaly Neck: Positive: trachea midline Cardiac: Positive: Reg Rate and Rhythm Lungs: Positive: Normal Breath Sounds Neuro: Positive: Grossly Intact Abdomen: Positive: Soft Skin: Negative: Rash, Suspicious Lesions, Ulceration Extremities: Present: upper extr. pulses, +1 Edema - Labs and Meds Comprehensive Metabolic Panel 04/14/22 Range/Units 05:09 Sodium 139 (137-145) mmol/L Potassium 3.4 L (3.6-5.0) mmol/L Chloride 102.1 (98-107) mmol/L Carbon Dioxide 26 (22-30) mmol/L BUN 46 H (9-20) mg/dL Creatinine 1.5 H (0.8-1.3) mg/dL Glucose 139 H (75-100) mg/dL Calcium 7.8 L (8.4-10.2) mg/dL - Imaging and Cardiology Echo: report reviewed - Telemetry EKG Rhythm: Sinus Rhythm - EKG Sinus rhythms and dysrhythmias: sinus rhythm Ventricular dysrhythmias: ventricular premature com Repolarization changes or abnormalities: nonspecific abnormality, ST segment, and/or T wave
[2022-04-14] MEDS: oxyCODONE /ACETAMINOPHEN 5-325MG TAB PO PRN (14:07)
[2022-04-14] MEDS: AMIODARONE 200 MG TAB PO SCH ×2 (14:12→21:43)
[2022-04-14] MEDS: CEFEPIME/NS 2 GM/100 ML 2 GM/100 ML BAG IV SCH (17:17)
[2022-04-15] MEDS: oxyCODONE /ACETAMINOPHEN 5-325MG TAB PO PRN (03:38)
[2022-04-15] MEDS: LEVOTHYROXINE 25 MCG TAB PO SCH (05:34)
[2022-04-15] MEDS: FUROSEMIDE 20 MG/2 ML INJ IV SCH (05:34)
--- NOTE | 2022-04-15 09:17 | Progress Note ---
Assessment and Plan 1. Acute kidney injury: Likely vasomotor ANJUM in the setting of decompensated CHF. Renal US showed mild hydronephrosis ?significance. Monitor renal function. Creatinine level improving. Avoid nephrotoxic agents. Meds dosage based on GFR. 2. FEN: Replete lytes as needed. Monitor lytes and volume status. 3. Sepsis 2/2 UTI: Abx per primary. 4. Acute on chronic HFrEF: Followed by Cards. 5. CAD s/p PCI / Sick sinus syndrome s/p PPM: S/p ablation of ventricular arrhythmia. Followed by Cards. Monitor. 6. Bladder retention: S/p gore catheter. 7. DM. Monitor. 8. HTN: Monitor. 9. Acute metabolic encephalopathy, POA: Monitor. Subjective: Patient was seen and examined at the bedside. Doing ok. Examination: General appearance: well-developed, appears stated age, no distress HEENT: atraumatic, no icterus, pupils equal Neck: trachea midline Respiratory: ctab Heart: S1S2, regular, no murmur Abdomen: soft, bowel sounds heard, NT Integumentary: no obvious rash Neurologic: alert, confused, able to move extremities Ext: no edema : Gore catheter Subjective Date of service: 04/15/22 Principal diagnosis: Sepsis, acute on chronic HFrEF Objective - Vital Signs Vital signs: Vital Signs - 12hr 04/14/22 04/15/22 04/15/22 22:00 00:03 07:25 Temperature 98.4 F Pulse Rate 89 Pulse Rate [ 94 H 94 H From Monitor] Respiratory 18 16 18 Rate Blood Pressure 124/80 O2 Sat by Pulse 97 94 97 Oximetry 04/15/22 08:07 Temperature 98.1 F Pulse Rate 82 Pulse Rate [ From Monitor] Respiratory 18 Rate Blood Pressure 123/76 O2 Sat by Pulse 95 Oximetry - Lab 04/15/22 12:15 04/15/22 12:15 Most recent lab results Calcium 8.0 mg/dL (8.4-10.2) L 04/15/22 05:11 Magnesium 1.50 mg/dL (1.7-2.3) L 04/15/22 05:11 Urine Creatinine 71.4 mg/dL (0.1-20.0) H 04/13/22 06:15 Urine Sodium 36 mmol/L 04/13/22 06:15 Urine Total Protein 65 mg/dL (5-11.8) H 04/13/22 06:15 Medications & Allergies - Medications Allergies/Adverse Reactions: Allergies Sulfa (Sulfonamide Antibiotics) Allergy (Mild, Verified 04/13/22 07:39) Unknown Home Medications: Home Medications Medication Instructions Recorded Confirmed Last Taken Type AtorvaSTATin [Lipitor] 40 mg PO DAILY 03/18/18 03/28/19 04/11/22 09:00 History Escitalopram [Lexapro] 10 mg PO DAILY 03/18/18 03/28/19 04/11/22 09:00 History Metformin HCl [Glucophage] 500 mg PO BID 03/18/18 03/28/19 04/11/22 22:00 History Tamsulosin HCl [Flomax] 0.4 mg PO BID 03/18/18 03/28/19 04/11/22 22:00 History [place]-3S/Dha/Epa/Fish Oil [Fish 1 each PO DAILY 04/24/18 03/28/19 04/11/22 09:00 History Oil 1,200 mg Softgel] Aspirin [Aspirin BABY CHEW TAB] 81 mg PO QDAY tab.chew 04/25/18 03/28/19 04/13/22 09:00 Rx Levothyroxine [Synthroid] 25 mcg PO DAILY@0600 #30 tablet 08/19/18 03/28/19 04/11/22 09:00 Rx Amiodarone [Cordarone 200 MG TAB] 200 mg PO BID #60 tablet 04/15/22 Unknown Rx Apixaban [Eliquis] 5 mg PO Q12HR #60 tablet 04/15/22 Unknown Rx Magnesium Oxide [Mag-Ox] 400 mg PO BID #14 tablet 04/15/22 Unknown Rx [place]-3 Fatty Acids/Fish Oil [Fish 1,000 mg PO QDAY #60 capsule 04/15/22 Unknown Rx Oil] Torsemide [Demadex] 20 mg PO Q48HR #30 tablet 04/15/22 Unknown Rx carvediloL [Coreg] 25 mg PO BID #60 tablet 04/15/22 Unknown Rx Active Medications: Generic Name Dose Route Start Last Admin Trade Name Freq PRN Reason Stop Dose Admin Albuterol 2.5 mg 04/12/22 12:06 Albuterol 2.5 Mg/3 Ml Nebu IH Q3HRT PRN Shortness Of Breath Amiodarone HCl 200 mg 04/14/22 12:00 04/14/22 21:43 Amiodarone 200 Mg Tab PO 200 mg BID GHASSAN Administration Aspirin 81 mg 04/13/22 10:00 04/14/22 10:12 Aspirin 81 Mg Tab Chew PO 81 mg QDAY GHASSAN Administration Atorvastatin Calcium 40 mg 04/13/22 10:00 04/14/22 10:13 Atorvastatin 40 Mg Tab PO 40 mg DAILY GHASSAN Administration Carvedilol 25 mg 04/12/22 22:00 04/14/22 21:43 Carvedilol 25 Mg Tab PO 25 mg BID GHASSAN Administration Dextrose 50 ml 04/12/22 13:00 Dextrose 50% In Water (25gm) 50 Ml Syringe IV Q30MIN PRN Hypoglycemia Protocol Enoxaparin Sodium 100 mg 04/13/22 11:00 04/14/22 21:44 Enoxaparin 100 Mg/1 Ml Inj 1 mg/kg (100 mg) 100 mg SUB-Q Administration Q12HR [facility] Protocol Escitalopram Oxalate 10 mg 04/13/22 10:00 04/14/22 10:12 Escitalopram 10 Mg Tab PO 10 mg DAILY GHASSAN Administration Fish Oil 1,000 mg 04/13/22 10:00 04/14/22 10:13 [place]-3 Fatty Acids/Fish Oil 1 Gram Cap PO 1,000 mg QDAY GHASSAN Administration Furosemide 40 mg 04/12/22 18:00 04/15/22 05:34 Furosemide 20 Mg/2 Ml Inj IV 40 mg 0600,1800 GHASSAN Administration Hydromorphone HCl 0.25 mg 04/12/22 12:06 Hydromorphone 0.5 Mg/0.5 Ml Inj IV Q4H PRN Pain, Moderate (4-6) Cefepime HCl 2 gm in 100 mls @ 200 mls/hr 04/14/22 10:00 04/14/22 17:17 Cefepime/Ns 2 Gm/100 Ml IV 200 mls/hr Q24H GHASSAN Administration Protocol Insulin Human Lispro 0 unit 04/12/22 16:30 04/14/22 21:49 Insulin Lispro 100 Unit/Ml SUB-Q 2 unit ACHS GHASSAN Administration Protocol Levothyroxine Sodium 25 mcg 04/13/22 06:00 04/15/22 05:34 Levothyroxine 25 Mcg Tab PO 25 mcg DAILY@0600 GHASSAN Administration Oxycodone/Acetaminophen 1 tab 04/12/22 12:06 04/15/22 03:38 Oxycodone /Acetaminophen 5-325mg Tab PO 1 tab Q16H PRN Administration Pain, Moderate (4-6) Sodium Chloride 10 ml 04/12/22 22:00 04/14/22 21:43 Sodium Chloride 0.9% 10 Ml Flush Syringe IV 10 ml BID GHASSAN Administration Tamsulosin HCl 0.4 mg 04/12/22 22:00 04/14/22 21:43 Tamsulosin 0.4 Mg Cap PO 0.4 mg BID GHASSAN Administration
[2022-04-15] MEDS: INSULIN LISPRO 100 UNIT/ML SUB-Q SCH ×2 (09:44→14:12)
[2022-04-15] MEDS: ESCITALOPRAM 10 MG TAB PO SCH (09:51)
[2022-04-15] MEDS: TAMSULOSIN 0.4 MG CAP PO SCH (09:51)
[2022-04-15] MEDS: ASPIRIN 81 MG TAB CHEW PO SCH (09:51)
[2022-04-15] MEDS: carvediloL 25 MG TAB PO SCH (09:51)
[2022-04-15] MEDS: AMIODARONE 200 MG TAB PO SCH (09:51)
[2022-04-15] MEDS: CEFEPIME/NS 2 GM/100 ML 2 GM/100 ML BAG IV SCH (09:51)
[2022-04-15] MEDS: OMEGA-3 FATTY ACIDS/FISH OIL 1 GRAM CAP PO SCH (09:52)
[2022-04-15] MEDS: ENOXAPARIN 100 MG/1 ML INJ SUB-Q SCH (09:52)
[2022-04-15] MEDS ORDERED: MAGNESIUM OXIDE 400 MG TAB PO SCH (10:00)
--- NOTE | 2022-04-15 12:15 | Discharge Summary ---
Providers - Providers Date of Admission: 04/12/22 12:07 Attending physician: LASHONDA CABEZAS MD 04/12/22 12:41 Consult to Physician [CONS] Routine Comment: Consulting Provider: GREY CASTREJON Physician Instructions: Reason For Exam: CHF/SVT 04/12/22 13:03 Consult to Physician [CONS] Routine Comment: Consulting Provider: ESTHER STODDARD Physician Instructions: Reason For Exam: anjum Primary care physician: SOCIAL SERVICES DIRECTOR Hospitalization Reason for admission: Shortness of breath Condition: Stable Hospital course: 77 YO Male with HTN, DM, BPH, CAD, Systolic CHF(EF 20%), HLD, HI, Cardiomyopathy S/P Pacemaker Placement, MDD presents to ED for evaluation. Patient reports "I feel weak and my legs are swollen". Patient states that he has experienced generalized weakness, decreased exercise tolerance over the past 1 week with persistent and worsening symptoms over the past few days. Patient knowledges decreased exercise tolerance, dyspnea on exertion, dyspnea at rest, orthopnea, paroxysmal nocturnal dyspnea, as well as subjective fever. EMS was notified and upon arrival the patient was found to be in distress and subsequently transported to [facility] for further care and evaluation of the aforementioned symptoms. The patient was seen and evaluated in the emergency department. All lab and imaging studies reviewed. Patient underwent EKG and was also found to have supraventricular tachycardia and was treated with adenosine with normalization of heart rate. Patient found to have fever to 101.1 F as well as urinary tract infection complicated by sepsis, as well as clinical symptoms consistent with CHF decompensation as well as type II NSTEMI and cardiorenal syndrome. Patient initiated on sepsis protocol and admitted to IMCU due to increased risk of worsening symptoms and for medical stabilization. Patient also initiated on CHF protocol. Cardiology team consulted in ED. Patient knowledges fever but denies chills, chest pain, productive cough, skin rash, recent contact, or known exposure to COVID-19. Prior admission on 09/09/2018 reviewed. All medication listed at time of admission has been reconciled. Advanced care planning conducted in ED. Echo 04/12/2022-severe global hypokinesis of LV. EF 20 to 25%. Left ventricle is mildly dilated. Mild diastolic dysfunction is present impaired relaxation pattern. No pericardial effusion Echocardiogram 08/03/2021-EF 30 to 35%. Diffusely hypokinetic LV. LV diastolic dysfunction. Normal right ventricular systolic function. No pericardial effusion Nuclear medicine lexiscan stresstest 04/05/2018- non ischemic.gated spect: mild post stress lv systolic dysfunction. spect mpi: evidence of prior inferior wall myocardial infarction with a residual degree of ischemia. A significant degree of ischemia is not seen. Outpatient medications: Entresto 97 mg130 mg p.o. twice daily, carvedilol 25 mg p.o. twice daily, Aldactone 12.5 mg p.o. daily, atorvastatin 40 mg p.o. nightly, torsemide 20 mg p.o. every 48 hours, aspirin 04/13: Patient seen and examined, clinically stable, discussed with cardiology team IV amiodarone started in addition to anticoagulation. Patient was severely depressed cardiac function EF of 20 to 25%. Will await COVID testing and if negative will transfer patient to telemetry. Otherwise continue antibiotics for sepsis management. Plan of care discussed with the patient in detail advance care directive discussion had with the patient in detail patient maintains a full code at this time. 04/14: Patient seen and examined no fever noted. Clinically improving although has urinary retention as a result of getting Gore placed. Will likely have outpatient follow-up with urology to manage Gore and a leg bag. Continues on Flomax twice daily. Heart rate still uncontrolled at rest discussed with children's ministry director-Will initiate amiodarone 200 mg p.o. twice daily. Will transfer to telemetry anticipate discharge in a.m. if clinically stable 04/15: Patient seen and examined today heart rate better controlled clinically stable at this time. No new complaints. Patient verbalized understanding of the management plan. Also inclusive of urology evaluation outpatient and Gore to leg bag on discharge. Cardiology medication adjustment discussed with the patient in detail he verbalized understanding plan to discharge with gore to leg bag and outpatient urology follow up. Cultures are with no growth at this time (1) Atrial Flutter Patient had episode of a flutter with RVR. Will initiate IV amiodarone bolus and drip Initiate Lovenox for anticoagulation (2) Sepsis Current Visit: Yes Status: Acute Qualifiers: Severe sepsis acute organ dysfunction type: acute renal failure Plan to address problem: Sepsis protocol: IV antibiotic therapy, chest x-ray, urinalysis, IV fluid resuscitation therapy, IV antibiotic therapy, blood culture, serial lactic acid level, maintain mean arterial pressure greater than equal to 65, monitor fluid balance, monitor urine output every shift (3) NSTEMI (non-ST elevated myocardial infarction) Current Visit: Yes Status: Acute Plan to address problem: Type II NSTEMI: Serial cardiac enzymes, EKG, telemetry monitoring, echocardiogram ordered and pending at time of admission, cardiology team consulted. (4) Cardiorenal syndrome Current Visit: Yes Status: Acute Qualifiers: Heart failure presence: with heart failure Plan to address problem: Urine electrolytes, nephrology team consulted, monitor urine output every shift Coronary artery disease s/p PCI-S/p ablation of ventricular arrhythmia Sick sinus syndrome s/p PPM(Biotronik) (5) Acute Cystitis Current Visit: Yes Status: Acute Qualifiers: Encounter type: initial encounter Plan to address problem: Urinalysis, IV antibiotic therapy, repeat CBC in AM. (6) Acute on chronic systolic CHF (congestive heart failure) Current Visit: No Status: Acute Plan to address problem: Strict I's/O, monitor urine output every shift, daily weight, afterload reduction, blood pressure control, supplemental oxygen, pulse oximetry, echocardiogram ordered and pending at time of admission, diuresis with Lasix. Monitor fluid balance. (7) NSVT (nonsustained ventricular tachycardia) Current Visit: No Status: Acute Plan to address problem: Patient treated with adenosine with conversion back to sinus rhythm. Cardiology team consulted, continue telemetry monitoring. (8) BPH (benign prostatic hyperplasia) Current Visit: No Status: Chronic Qualifiers: Lower urinary tract symptom presence: symptoms present Plan to address problem: Continue medical management, outpatient urology follow-up. (9) Depression Current Visit: No Status: Chronic Qualifiers: Depression Type: unspecified Qualified Code(s): F32.9 - Major depressive disorder, single episode, unspecified Plan to address problem: Continue medical management, supportive care. No acute exacerbation at this time, outpatient psychiatry follow-up. (10) Diabetes Current Visit: No Status: Chronic Plan to address problem: Consistent carbohydrate diet, Accu-Chek, insulin protocol, hypoglycemia protocol. (11) HLD (hyperlipidemia) Current Visit: No Status: Chronic Qualifiers: Hyperlipidemia type: mixed hyperlipidemia Qualified Code(s): E78.2 - Mixed hyperlipidemia Plan to address problem: Statin therapy, supportive care, low-cholesterol diet. (12) HTN (hypertension) Current Visit: No Status: Chronic Qualifiers: Hypertension type: primary hypertension Qualified Code(s): I10 - Essential (primary) hypertension Plan to address problem: Monitor blood pressure every shift, continue medical management. 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 Patient acknowledges understanding and agreement with care plan, +30 minutes. (18) Preventative health care Current Visit: Yes Status: Acute Plan to address problem: Patient counseled regarding dietary compliance, fluid restriction compliance, outpatient follow-up with primary care physician for all age and risk factor appropriate screening test. +30 minutes. Disposition: HOME HEALTH CARE SERVICE Final Discharge Diagnosis (Prints w/discharge instructions): Atrial Flutter. (2) Sepsis. (3) NSTEMI (non-ST elevated myocardial infarction). (4) Cardiorenal syndrome Time spent for discharge: 35 mins Core Measure Documentation - Palliative Care Palliative Care/ Comfort Measures: Not Applicable - Core Measures Any of the following diagnoses?: none Exam - Physical Exam Narrative exam: VITAL SIGNS: Reviewed. GENERAL: The patient appears normally developed, Vital signs as documented. HEAD: No signs of head trauma. EYES: Pupils are equal. Extraocular motions intact. EARS: Hearing grossly intact. MOUTH: Oropharynx is normal. NECK: No adenopathy, no JVD. CHEST: Chest with clear breath sounds bilaterally. No wheezes, rales, or rhonchi. CARDIAC: Irregularly irregular rate and rhythm. S1 and S2, without murmurs, gallops, or rubs. VASCULAR: No Edema. Peripheral pulses normal and equal in all extremities. ABDOMEN: Soft, non tender and non distended. No rebound or guarding, and no masses palpated. Bowel Sounds normal. MUSCULOSKELETAL: Good range of motion of all major joints. Extremities without clubbing, cyanosis. +edema. NEUROLOGIC EXAM: Alert and oriented x 3 No focal sensory or strength deficits . Speech normal. Follows commands. PSYCHIATRIC: Mood normal. SKIN: detail exam as documented in skin assessment - Constitutional Vitals: Temp Pulse Resp BP Pulse Ox 98.1 F 82 18 123/76 95 04/15/22 08:07 04/15/22 08:07 04/15/22 08:07 04/15/22 08:07 04/15/22 08:07 Plan Activity: advance as tolerated, fall precautions Diet: low salt, diabetic Special Instructions: record daily weights, record daily BP diary, record blood sugar diary Follow up with: ELSA DE LOS SANTOS MD [Staff Physician] - 05/11/22 2:15 pm (In [place] location) MELISSA MYLES MD [Staff Physician] - 7 Days PRIMARY CARE, [Primary Care Provider] - 3-5 Days ESTHER STODDARD MD [Staff Physician] - 7 Days Prescriptions: Amiodarone [Cordarone 200 MG TAB] 200 mg PO BID #60 tablet carvediloL [Coreg] 25 mg PO BID #60 tablet Apixaban [Eliquis] 5 mg PO Q12HR #60 tablet [place]-3 Fatty Acids/Fish Oil [Fish Oil] 1,000 mg PO QDAY #60 capsule Magnesium Oxide [Mag-Ox] 400 mg PO BID #14 tablet Torsemide [Demadex] 20 mg PO Q48HR #30 tablet
--- NOTE | 2022-04-15 12:17 | Progress Note ---
Assessment and Plan Patient 77-year-old male with a past medical history of coronary artery disease s/p PCI, chronic systolic heart failure EF 30 to 35%, sick sinus syndrome s/p PPM, hypertension, diabetes, s/p ablation of ventricular arrhythmia, hypothyroid, BPH, who presents to the ED with a complaint of weakness and bilateral lower extremity edema x2 days. Sepsis UTI Acute on chronic HFrEF ANJUM-nephrology following Coronary artery disease s/p PCI Sick sinus syndrome s/p PPM(Biotronik) S/p ablation of ventricular arrhythmia Hypothyroidism Hypertension Diabetes Echo 04/12/2022-severe global hypokinesis of LV. EF 20 to 25%. Left ventricle is mildly dilated. Mild diastolic dysfunction is present impaired relaxation pattern. No pericardial effusion Echocardiogram 08/03/2021-EF 30 to 35%. Diffusely hypokinetic LV. LV diastolic dysfunction. Normal right ventricular systolic function. No pericardial effusion Nuclear medicine lexiscan stresstest 04/05/2018- non ischemic.gated spect: mild post stress lv systolic dysfunction. spect mpi: evidence of prior inferior wall myocardial infarction with a residual degree of ischemia. A significant degree of ischemia is not seen. Outpatient medications: Entresto 97 mg130 mg p.o. twice daily, carvedilol 25 mg p.o. twice daily, Aldactone 12.5 mg p.o. daily, atorvastatin 40 mg p.o. nightly, torsemide 20 mg p.o. every 48 hours, aspirin Plan: Patient remains chest pain-free Suspect troponin elevation in setting of sepsis, ANJUM, and acute on chronic CHF. Continue carvedilol 25 mg p.o. daily, aspirin, atorvastatin 40 mg p.o. nightly, amiodarone 200 mg p.o. twice daily Continue to hold Entresto and Aldactone due to elevated creatinine and soft BP Resume outpatient torsemide Patient has significant urine output. Patient currently has Major catheter Patient no longer has bilateral lower extremity edema Transition to Eliqu for anticoagulation Discussed plan of care with patient who verbalized understanding and acknowledgment Cardiac status otherwise stable Patient has a follow-up appointment with Dr. Christianson on 05/11/2022 at 2:15 PM in our [place] location. Phone #[phone] Patient seen in conjunction with Dr. Baptiste who agrees with this plan of care - Patient Problems (1) Cardiorenal syndrome Current Visit: Yes Status: Acute Qualifiers: Heart failure presence: with heart failure (2) Elevated troponin Current Visit: Yes Status: Acute (3) Fever Current Visit: Yes Status: Acute (4) SVT (supraventricular tachycardia) Current Visit: Yes Status: Acute (5) Sepsis Current Visit: Yes Status: Acute (6) UTI (urinary tract infection) Current Visit: Yes Status: Acute Qualifiers: Encounter type: initial encounter (7) Weakness Current Visit: Yes Status: Acute (8) Acute on chronic systolic CHF (congestive heart failure) Current Visit: No Status: Acute (9) Sick sinus syndrome Current Visit: No Status: Acute (10) BPH (benign prostatic hyperplasia) Current Visit: No Status: Chronic Qualifiers: Lower urinary tract symptom presence: symptoms present (11) CAD (coronary artery disease) Current Visit: No Status: Chronic (12) Cardiac pacemaker in situ Current Visit: No Status: Chronic (13) Cardiomyopathy Current Visit: No Status: Chronic (14) Depression Current Visit: No Status: Chronic Qualifiers: Depression Type: unspecified Qualified Code(s): F32.9 - Major depressive disorder, single episode, unspecified (15) HLD (hyperlipidemia) Current Visit: No Status: Chronic Qualifiers: Hyperlipidemia type: mixed hyperlipidemia Qualified Code(s): E78.2 - Mixed hyperlipidemia (16) HTN (hypertension) Current Visit: No Status: Chronic Qualifiers: Hypertension type: primary hypertension Qualified Code(s): I10 - Essential (primary) hypertension (17) Stented coronary artery Current Visit: No Status: Chronic Subjective Date of service: 04/15/22 Principal diagnosis: Sepsis, acute on chronic HFrEF Interval history: Patient transferred to telemetry. Patient resting in bed in no acute distress patient reports feeling significantly better this Patient currently sinus 80s on monitor with few PVCs no other events Objective Vital Signs Temp Pulse Pulse Resp BP Pulse Ox 04/15/22 08:07 98.1 F 82 18 123/76 95 04/15/22 07:25 94 H 18 97 04/15/22 00:03 98.4 F 89 16 124/80 94 04/14/22 22:00 94 H 18 97 04/14/22 19:50 95 04/14/22 18:07 97.5 F L 80 99/61 96 04/14/22 17:31 78 12 105/66 95 04/14/22 17:15 79 19 105/66 94 08/18/22 17:00 76 17 105/66 96 04/14/22 16:45 74 20 98/63 96 04/14/22 16:31 78 20 98/63 93 04/14/22 16:15 71 17 88/51 92 04/14/22 16:00 70 14 97 04/14/22 15:46 74 17 98/63 96 04/14/22 15:30 70 17 98/63 95 04/14/22 15:16 73 15 98/63 93 04/14/22 15:00 72 20 98/63 04/14/22 14:46 74 15 98/65 95 04/14/22 14:30 70 19 98/65 95 04/14/22 14:16 81 18 98/65 94 04/14/22 14:00 81 94 H 14 98/65 92 04/14/22 13:46 79 20 103/60 95 04/14/22 13:30 77 14 103/60 95 04/14/22 13:16 79 13 103/60 95 04/14/22 13:00 84 15 103/60 95 04/14/22 12:46 79 18 97/61 95 04/14/22 12:30 74 17 97/61 93 04/14/22 12:16 74 16 97/61 93 - Physical Examination General: No Apparent Distress HEENT: Positive: PERRL, Normocephaly Neck: Positive: trachea midline Cardiac: Positive: Reg Rate and Rhythm Lungs: Positive: Normal Breath Sounds Neuro: Positive: Grossly Intact Abdomen: Positive: Soft Skin: Negative: Rash, Suspicious Lesions, Ulceration Extremities: Present: upper extr. pulses. Absent: +1 Edema - Labs and Meds Comprehensive Metabolic Panel 04/15/22 Range/Units 05:11 Sodium 139 (137-145) mmol/L Potassium 3.8 (3.6-5.0) mmol/L Chloride 104.0 (98-107) mmol/L Carbon Dioxide 25 (22-30) mmol/L BUN 42 H (9-20) mg/dL Creatinine 1.2 (0.8-1.3) mg/dL Glucose 166 H (75-100) mg/dL Calcium 8.0 L (8.4-10.2) mg/dL - Imaging and Cardiology Echo: report reviewed - Telemetry EKG Rhythm: Sinus Rhythm - EKG Sinus rhythms and dysrhythmias: sinus rhythm Ventricular dysrhythmias: ventricular premature com Repolarization changes or abnormalities: nonspecific abnormality, ST segment, and/or T wave
[2022-04-15 12:38] VITALS: BP 92/62
[2022-04-15 12:46] LABS: Hematocrit 32.6 % (35.5-45.6); Mean Corpuscular HGB Conc 34 % (32-34); Mean Corpuscular Volume 91 fl (84-94); Platelet Count 233 K/mm3 (140-440)
[2022-04-15 12:56] LABS: INR 1.06 (0.87-1.13)
[2022-04-15] MEDS ORDERED: APIXABAN 5 MG TAB PO SCH (22:00)
--- NOTE | 2022-04-15 22:20 | Electrocardiograph Report ---
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
[2022-04-17] MEDS ORDERED: TORSEMIDE 10 MG TAB PO SCH (10:00)
== END 2022-04-15 18:17 | disposition home health service (06) | DRG 871 ==
LOC: ED 03:58 → IMCU 12:07 → 4A 04-14 17:59
PROVIDERS: ADMIT Internal Medicine; ATTEND Internal Medicine
DX: A41.9 Sepsis, unspecified organism (principal); G93.41 Metabolic encephalopathy; N17.0 Acute kidney failure with tubular necrosis; I50.23 Acute on chronic systolic (congestive) heart failure; I21.A1 Myocardial infarction type 2; I48.92 Unspecified atrial flutter; N12 Tubulo-interstitial nephritis, not specified as acute or chronic; I47.1 Supraventricular tachycardia; I13.0 Hypertensive heart and chronic kidney disease with heart failure and stage 1 through stage 4 chronic kidney disease, or unspecified chronic kidney disease; I42.9 Cardiomyopathy, unspecified; Z20.822 Contact with and (suspected) exposure to COVID-19; I25.10 Atherosclerotic heart disease of native coronary artery without angina pectoris; F32.9 Major depressive disorder, single episode, unspecified; N18.9 Chronic kidney disease, unspecified; E11.22 Type 2 diabetes mellitus with diabetic chronic kidney disease; E78.2 Mixed hyperlipidemia; I49.5 Sick sinus syndrome; N40.1 Benign prostatic hyperplasia with lower urinary tract symptoms; R33.8 Other retention of urine; E03.9 Hypothyroidism, unspecified; Z79.899 Other long term (current) drug therapy; Z82.49 Family history of ischemic heart disease and other diseases of the circulatory system; Z83.3 Family history of diabetes mellitus; Z79.82 Long term (current) use of aspirin; Z95.0 Presence of cardiac pacemaker; Z79.84 Long term (current) use of oral hypoglycemic drugs; Z88.2 Allergy status to sulfonamides; R65.20 Severe sepsis without septic shock
CPT/HCPCS: 36415; 70450; 71045; 76770; 80048; 80053; 80061; 80307; 81001; 82140; 82550; 82553; 82565; 82570; 82962; 83735; 83880; 84156; 84300; 84484; 85007; 85025; 85027; 85610; 85730; 86140; 86850; 86900; 86901; 87040; 93005; 93306; G0378; Q9967; C8929; J0153; J0692; J0696; J1650; J1815; J1940; J7030; U0003